=== PATIENT | male | born 1940 | race Caucasian/White ===

== ENCOUNTER 2016-11-04 16:26 | Emergency (ER) | payer BC, MEDICARE ==
[2016-11-04 16:41] VITALS: BP 155/71; PULSE 71; RESP 18; TEMP 97.5
--- NOTE | 2016-11-04 17:02 | ED ---
Male Urogenital HPI - General Chief complaint: Urogenital Stated complaint: Urogenital Source: patient Mode of arrival: wheelchair Limitations: no limitations - History of Present Illness Initial comments: Patient is a 76-year-old male who presents for evaluation for inability to void after having a surgical procedure this morning with Dr. Garay (urology). Past medical history as below. Patient unable to tell me exactly what the procedure he had or the condition he had warranting the procedure. Stated the procedure was at 7 AM this morning involved draining some fluid around the right testicle. Sounds like a hydrocele. Did well during the procedure. Stated that there was no complication was was discharged home. He is coming in this evening as he has not had a normal urination since the procedure. He stated that he was having "tingling". Is now having some lower pelvic pain. States he never had a history of urinary obstruction before in the past. He stated that his prostate was checked and was normal. He called his the office and spoke with Dr. Garay and recommended that he come in for evaluation. He currently denies fever, chills, headache, changes in vision, URI symptoms, shortness of breath, cough, chest pain, nausea, vomiting, diarrhea. - Related Data Home Medications Medication Instructions Recorded Confirmed Aspirin 81 mg PO DAILY 12/13/14 11/04/16 Hydrochlorothiazide 50 mg PO DAILY 12/13/14 11/04/16 [Hydrochlorothiazide] Simvastatin [Simvastatin] 20 mg PO DAILY 12/13/14 11/04/16 amLODIPine [Norvasc] 5 mg PO BID 12/13/14 11/04/16 Allergies Allergy/AdvReac Type Severity Reaction Status Date / Time No Known Allergies Allergy Verified 11/04/16 16:57 Review of Systems ROS Statement: Those systems with pertinent positive or pertinent negative responses have been documented in the HPI. ROS Other: All systems not noted in ROS Statement are negative. Past Medical History Past Medical History: Coronary Artery Disease (CAD), Chest Pain / Angina, GERD/ Reflux, Hyperlipidemia, Hypertension History of Any Multi-Drug Resistant Organisms: None Reported Past Surgical History: Coronary Bypass/CABG Additional Past Surgical History / Comment(s): Open heart Past Psychological History: No Psychological Hx Reported Smoking Status: Never smoker Past Alcohol Use History: None Reported Past Drug Use History: None Reported General Exam Limitations: no limitations General appearance: alert, in no apparent distress, other (No acute distress) Head exam: Present: atraumatic, normocephalic, normal inspection Eye exam: Present: normal appearance, PERRL, EOMI. Absent: scleral icterus, conjunctival injection, periorbital swelling ENT exam: Present: normal exam, mucous membranes moist Neck exam: Present: normal inspection. Absent: tenderness, meningismus, lymphadenopathy Respiratory exam: Present: normal lung sounds bilaterally. Absent: respiratory distress, wheezes, rales, rhonchi, stridor Cardiovascular Exam: Present: regular rate, normal rhythm, normal heart sounds. Absent: systolic murmur, diastolic murmur, rubs, gallop, clicks GI/Abdominal exam: Present: soft, tenderness, normal bowel sounds, other (Pain with palpation of the superpubic area. Soft abdomen. No peritoneal signs.). Absent: distended, guarding, rebound, rigid exam: Present: other (Surgical changes to the right scrotum. Palpated bilateral testes. No other acute abnormality identified.) Extremities exam: Present: normal inspection, full ROM, normal capillary refill. Absent: tenderness, pedal edema, joint swelling, calf tenderness Back exam: Present: normal inspection Neurological exam: Present: alert, oriented X3, CN II-XII intact Psychiatric exam: Present: normal affect, normal mood Skin exam: Present: warm, dry, intact, normal color. Absent: rash Course Vital Signs 11/04/16 16:38 Temperature 97.5 F L Pulse Rate 71 Respiratory 18 Rate Blood Pressure 155/71 O2 Sat by Pulse 98 Oximetry Medical Decision Making - Medical Decision Making 1700: Patient presents for evaluation for inability to urinate since urological procedure this morning. I spoke with Dr. Whipple. No further recommendations outside of a bladder scan and possible Vences if having urinary retention. 1720: 800 cc in the bladder. Vences placed. UA ordered. 1755: UA WNL. Discussed with the patient. We'll keep the Vences in until reevaluated by urology. Will discharge home with a leg bag. Will call Dr. Garay's office on Monday to set up follow up. Discussed signs and symptoms on when to return to the emergency department for further evaluation. Comfortable discharge home and will follow-up. - Lab Data Lab Results 11/04/16 Range/Units 17:20 Urine Color Yellow Urine Appearance Clear (Clear) Urine pH 7.0 (5.0-8.0) Ur Specific [place] 1.010 (1.001-1.035) Urine Protein Negative (Negative) Urine Glucose (UA) Negative (Negative) Urine Ketones Negative (Negative) Urine Blood Small H (Negative) Urine Nitrite Negative (Negative) Urine Bilirubin Negative (Negative) Urine Urobilinogen <2.0 (<2.0) mg/dL Ur Leukocyte Esterase Negative (Negative) Urine RBC 7 H (0-5) /hpf Urine WBC 1 (0-5) /hpf Urine Bacteria Rare H (None) /hpf Urine Mucus Rare H (None) /hpf Disposition Clinical Impression: Urinary retention Disposition: HOME SELF-CARE Condition: Good Instructions: Urinary Retention in Men (ED) Referrals: Curry Nair MD [Primary Care Provider] - 1-2 days Bryan Aguayo MD [STAFF PHYSICIAN] - 1-2 days
[2016-11-04 17:36] LABS: Appearance,Urine Clear (Clear); Bacteria,Urine Rare /hpf; Bilirubin,Urine Negative (Negative); Glucose,Urine (UA) Negative (Negative); Ketones,Urine Negative (Negative); Leukocyte Esterase,Urine Negative (Negative); Mucus,Urine Rare /hpf; Nitrite,Urine Negative (Negative); Particle Count 2945; Protein,Urine Negative (Negative); RBC,Urine 7 /hpf (0-5); UA Billing (MACRO vs. MICRO) MICRO; Urobilinogen,Urine <2.0 mg/dL (<2.0); WBC,Urine 1 /hpf (0-5)
== END 2016-11-04 18:18 | disposition home or self-care (01) ==
LOC: EC 16:26
DX: R33.9 Retention of urine, unspecified (principal); R10.30 Lower abdominal pain, unspecified; R20.2 Paresthesia of skin; I25.10 Atherosclerotic heart disease of native coronary artery without angina pectoris; E78.5 Hyperlipidemia, unspecified; I10 Essential (primary) hypertension; Z79.82 Long term (current) use of aspirin; Z79.899 Other long term (current) drug therapy; Z86.79 Personal history of other diseases of the circulatory system; Z98.61 Coronary angioplasty status
CPT/HCPCS: 51702; 51798; 81001; 99284

== ENCOUNTER 2017-09-06 05:57 | Emergency (ER) | payer MEDICARE ==
[2017-09-06 06:05] VITALS: RESP 16
[2017-09-06] MEDS ORDERED: SODIUM CHLORIDE 0.9% 500 ML IV STA (06:25)
--- NOTE | 2017-09-06 06:28 | ED ---
General Adult HPI - General Source: patient, RN notes reviewed, old records reviewed Mode of arrival: wheelchair Limitations: no limitations <Tho Aguirre - Last Filed: 09/06/17 06:28> <Alan Lanier - Last Filed: 09/06/17 08:06> - General Chief complaint: Abdominal Pain Stated complaint: ABD PAIN Time Seen by Provider: 09/06/17 06:07 - History of Present Illness Initial comments: 76-year-old male presents for evaluation of left flank pain. Patient's pain began yesterday around 11 PM. He came on suddenly. Patient states the pain has come and gone since that time. Denies any dysuria currently, however patient has complained of dysuria and urinary frequency in the past. No known history of kidney stones. Patient denies fever or chills. Denies nausea vomiting or diarrhea. States he has had some left lower abdominal pain as well. No testicular pain. No chest pain or shortness of breath. Pain is minimal at the time my evaluation. (Tho Aguirre) - Related Data Home Medications Medication Instructions Recorded Confirmed Aspirin 81 mg PO DAILY 12/13/14 11/04/16 Hydrochlorothiazide 50 mg PO DAILY 12/13/14 11/04/16 [Hydrochlorothiazide] Simvastatin [Simvastatin] 20 mg PO DAILY 12/13/14 11/04/16 amLODIPine [Norvasc] 5 mg PO BID 12/13/14 11/04/16 Allergies Allergy/AdvReac Type Severity Reaction Status Date / Time No Known Allergies Allergy Verified 03/22/17 03:44 Review of Systems ROS Other: All systems not noted in ROS Statement are negative. <Tho Aguirre - Last Filed: 09/06/17 06:28> ROS Other: All systems not noted in ROS Statement are negative. <Alan Lanier - Last Filed: 09/06/17 08:06> ROS Statement: Those systems with pertinent positive or pertinent negative responses have been documented in the HPI. Past Medical History Past Medical History: Coronary Artery Disease (CAD), Chest Pain / Angina, GERD/ Reflux, Hyperlipidemia, Hypertension History of Any Multi-Drug Resistant Organisms: None Reported Past Surgical History: Coronary Bypass/CABG Additional Past Surgical History / Comment(s): Open heart Past Psychological History: No Psychological Hx Reported Smoking Status: Never smoker Past Alcohol Use History: None Reported Past Drug Use History: None Reported <Tho Aguirre - Last Filed: 09/06/17 06:28> General Exam Limitations: no limitations General appearance: alert, in no apparent distress Head exam: Present: atraumatic, normocephalic Eye exam: Present: normal appearance, PERRL, EOMI ENT exam: Present: normal exam Neck exam: Present: normal inspection. Absent: tenderness, meningismus Respiratory exam: Present: normal lung sounds bilaterally. Absent: respiratory distress, wheezes Cardiovascular Exam: Present: regular rate, normal rhythm GI/Abdominal exam: Present: soft, tenderness (Mild left lower quadrant abdominal pain). Absent: distended, guarding, rebound Extremities exam: Present: normal inspection, full ROM, normal capillary refill. Absent: pedal edema Back exam: Present: CVA tenderness (L) Neurological exam: Present: alert, oriented X3, CN II-XII intact. Absent: motor sensory deficit Psychiatric exam: Present: normal affect, normal mood Skin exam: Present: warm, dry, intact. Absent: cyanosis, diaphoretic <Tho Aguirre - Last Filed: 09/06/17 06:28> Course <Tho Aguirre - Last Filed: 09/06/17 06:28> <Alan Lanier - Last Filed: 09/06/17 08:06> Vital Signs 09/06/17 09/06/17 06:01 07:41 Temperature 96.9 F L Pulse Rate 64 62 Respiratory 16 16 Rate Blood Pressure 148/67 151/71 O2 Sat by Pulse 96 97 Oximetry - Reevaluation(s) Reevaluation #1: 09/06/17 0700 Patient's care is signed out to Dr. Lanier awaiting laboratory studies and CT abdomen pelvis. (Tho Aguirre) Medical Decision Making <Tho Aguirre - Last Filed: 09/06/17 06:28> - Lab Data Result diagrams: 09/06/17 06:46 09/06/17 06:46 <Alan Lanier - Last Filed: 09/06/17 08:06> - Medical Decision Making Patient presented with left flank pain. The CAT scan reveals no evidence of any acute emergency condition. It shows a pulmonary nodule, which the patient has been apprised of and will follow-up as an outpatient. However that does not correlate with the patient's symptoms. He has a renal cyst which is also unremarkable for any type of emergency or causative pain. His laboratory studies are all normal. On reevaluation he has no abdominal tenderness. He is tolerating oral intake. He has normal vital signs. He has no evidence of any infectious processes. There is no evidence of any acute emergency condition at this time. He is stable for discharge. He'll follow-up with his physician does not outpatient. I instructed him to return to the emerge department immediately if he develops worsening of her symptoms, or any new proms or complaints. (Alan Lanier) - Lab Data Lab Results 09/06/17 09/06/17 09/06/17 Range/Units 06:46 06:46 06:46 WBC 4.7 (3.8-10.6) k/uL RBC 4.86 (4.30-5.90) m/uL Hgb 15.3 (13.0-17.5) gm/dL Hct 44.7 (39.0-53.0) % MCV 92.0 (80.0-100.0) fL MCH 31.4 (25.0-35.0) pg MCHC 34.2 (31.0-37.0) g/dL RDW 13.0 (11.5-15.5) % Plt Count 204 (150-450) k/uL Neutrophils % 58 % Lymphocytes % 30 % Monocytes % 7 % Eosinophils % 2 % Basophils % 1 % Neutrophils # 2.7 (1.3-7.7) k/uL Lymphocytes # 1.4 (1.0-4.8) k/uL Monocytes # 0.3 (0-1.0) k/uL Eosinophils # 0.1 (0-0.7) k/uL Basophils # 0.0 (0-0.2) k/uL Sodium 142 (137-145) mmol/L Potassium 3.8 (3.5-5.1) mmol/L Chloride 99 (98-107) mmol/L Carbon Dioxide 31 H (22-30) mmol/L Anion Gap 12 mmol/L BUN 15 (9-20) mg/dL Creatinine 0.62 L (0.66-1.25) mg/dL Est GFR (CKD-EPI)AfAm >90 (>60 ml/min/1.73 sqM) Est GFR (CKD-EPI)NonAf >90 (>60 ml/min/1.73 sqM) Glucose 88 (74-99) mg/dL Plasma Lactic Acid [place] 1.3 (0.7-2.0) mmol/L Calcium 9.3 (8.4-10.2) mg/dL Total Bilirubin 0.8 (0.2-1.3) mg/dL AST 18 (17-59) U/L ALT 19 L (21-72) U/L Alkaline Phosphatase 85 (38-126) U/L Total Protein 6.8 (6.3-8.2) g/dL Albumin 4.1 (3.5-5.0) g/dL Urine Color Urine Appearance (Clear) Urine pH (5.0-8.0) Ur Specific [place] (1.001-1.035) Urine Protein (Negative) Urine Glucose (UA) (Negative) Urine Ketones (Negative) Urine Blood (Negative) Urine Nitrite (Negative) Urine Bilirubin (Negative) Urine Urobilinogen (<2.0) mg/dL Ur Leukocyte Esterase (Negative) Urine WBC (0-5) /hpf Amorphous Sediment (None) /hpf Urine Mucus (None) /hpf 09/06/17 Range/Units 07:32 WBC (3.8-10.6) k/uL RBC (4.30-5.90) m/uL Hgb (13.0-17.5) gm/dL Hct (39.0-53.0) % MCV (80.0-100.0) fL MCH (25.0-35.0) pg MCHC (31.0-37.0) g/dL RDW (11.5-15.5) % Plt Count (150-450) k/uL Neutrophils % % Lymphocytes % % Monocytes % % Eosinophils % % Basophils % % Neutrophils # (1.3-7.7) k/uL Lymphocytes # (1.0-4.8) k/uL Monocytes # (0-1.0) k/uL Eosinophils # (0-0.7) k/uL Basophils # (0-0.2) k/uL Sodium (137-145) mmol/L Potassium (3.5-5.1) mmol/L Chloride (98-107) mmol/L Carbon Dioxide (22-30) mmol/L Anion Gap mmol/L BUN (9-20) mg/dL Creatinine (0.66-1.25) mg/dL Est GFR (CKD-EPI)AfAm (>60 ml/min/1.73 sqM) Est GFR (CKD-EPI)NonAf (>60 ml/min/1.73 sqM) Glucose (74-99) mg/dL Plasma Lactic Acid [place] (0.7-2.0) mmol/L Calcium (8.4-10.2) mg/dL Total Bilirubin (0.2-1.3) mg/dL AST (17-59) U/L ALT (21-72) U/L Alkaline Phosphatase (38-126) U/L Total Protein (6.3-8.2) g/dL Albumin (3.5-5.0) g/dL Urine Color Yellow Urine Appearance Cloudy (Clear) Urine pH 7.5 (5.0-8.0) Ur Specific [place] 1.014 (1.001-1.035) Urine Protein Negative (Negative) Urine Glucose (UA) Negative (Negative) Urine Ketones Negative (Negative) Urine Blood Negative (Negative) Urine Nitrite Negative (Negative) Urine Bilirubin Negative (Negative) Urine Urobilinogen <2.0 (<2.0) mg/dL Ur Leukocyte Esterase Negative (Negative) Urine WBC 1 (0-5) /hpf Amorphous Sediment Occasional H (None) /hpf Urine Mucus Rare H (None) /hpf Disposition <Tho Aguirre - Last Filed: 09/06/17 06:28> Is patient prescribed a controlled substance at d/c from ED?: No <Alan Lanier - Last Filed: 09/06/17 08:06> Clinical Impression: Abdominal pain Disposition: HOME SELF-CARE Condition: Good Instructions: Abdominal Pain (ED) Referrals: Curry Nair MD [Primary Care Provider] - 1-2 days
[2017-09-06 06:57] LABS: Basophils % (A) 1 %; Eosinophils # (A) 0.1 k/uL (0-0.7); Eosinophils % (A) 2 %; HCT 44.7 % (39.0-53.0); HGB 15.3 gm/dL (13.0-17.5); Lymphocytes # (A) 1.4 k/uL (1.0-4.8); Lymphocytes % (A) 30 %; MCH 31.4 pg (25.0-35.0); MCHC 34.2 g/dL (31.0-37.0); Monocytes # (A) 0.3 k/uL (0-1.0); Monocytes % (A) 7 %; Neutrophils # (A) 2.7 k/uL (1.3-7.7); Neutrophils % (A) 58 %; Platelet Count 204 k/uL (150-450); RBC 4.86 m/uL (4.30-5.90); WBC 4.7 k/uL (3.8-10.6)
[2017-09-06 07:11] LABS: ALT 19 U/L (21-72); AST 18 U/L (17-59); Albumin 4.1 g/dL (3.5-5.0); Alkaline Phosphatase 85 U/L (38-126); Anion Gap 12 mmol/L; Blood Urea Nitrogen 15 mg/dL (9-20); Calcium 9.3 mg/dL (8.4-10.2); Carbon Dioxide 31 mmol/L (22-30); Chloride 99 mmol/L (98-107); Glucose 88 mg/dL (74-99); Potassium 3.8 mmol/L (3.5-5.1); Sodium 142 mmol/L (137-145); Total Bilirubin 0.8 mg/dL (0.2-1.3); Total Protein 6.8 g/dL (6.3-8.2)
--- NOTE | 2017-09-06 07:27 | XR ---
EXAMINATION TYPE: XR KUB DATE OF EXAM: 09/06/2017 COMPARISON: NONE HISTORY: Left flank pain TECHNIQUE: One view abdominal series FINDINGS: The osseous structures are intact. The bowel gas pattern is nonspecific. Lung bases are clear. Post surgical change involving the mediastinum. Hypertrophic and degenerative changes spine. Arthropathy o f the hips. Hiatal hernia suspected. IMPRESSION: 1. Nonspecific abdomen.
--- NOTE | 2017-09-06 07:40 | CT ---
EXAMINATION TYPE: CT abdomen pelvis wo con DATE OF EXAM: 09/06/2017 COMPARISON: NONE HISTORY: Lt flank pain CT DLP: 482.8 mGycm Automated exposure control for dose reduction was used. TECHNIQUE: Helical acquisition of images was performed from the lung bases through the pelvis. FINDINGS: LUNG BASES: Subsegmental changes at the right lung base noted. Similar linear changes at the left kalyn g base 3 mm nodular density along the medial aspect left lower lobe coronary artery calcification not ed. Sternotomy wires seen. Atherosclerotic change aorta LIVER/GB: There is cholelithiasis. PANCREAS: No significant abnormality is seen. SPLEEN: No significant abnormality is seen. ADRENALS: Indeterminant 1 cm left adrenal nodule.. KIDNEYS: No hydronephrosis or renal calculi. Indeterminate lower pole left renal lesion measuring les s than a centimeter. Hyperdense 4 mm lesion lower pole right kidney likely related to hemorrhagic cys t.. There is also fullness to the mid pole medial margin of the left kidney which should be evaluated with follow-up ultrasound or postcontrast CT. ADENOPATHY: None visualized URINARY BLADDER: No significant abnormality is seen. PELVIC ADENOPATHY: None visualized. OSSEOUS STRUCTURES: Hypertrophic and degenerative disc disease noted.. BOWEL: Bowel gas pattern nonspecific with retained fecal debris. OTHER: Prostate gland is enlarged. There is wall thickening the bladder which correlate clinically fo r cystitis can't exclude mucosal distal left ureter appears dilated measuring 1 cm. Moderate-sized hi atal hernia noted. IMPRESSION: 1. No renal calculus or hydronephrosis. There is localized dilation of the distal left ureter near th e level of the UVJ with marked prostate hypertrophy. Distal mucosal lesion not excluded. 2. Bladder wall thickening correlate for cystitis. 3. Indeterminate left renal lesion and fullness of the medial midpole indeterminate by noncontrast CT . Recommend follow-up ultrasound or postcontrast CT. 4. Hyperdense 3 mm right renal lesion may be related to hemorrhagic cyst. 5. Indeterminate 1 cm left adrenal nodule. 6. Cholelithiasis. 7. 3 mm left lower lobe pulmonary nodule recommend 6 month follow-up CT scan to assess for stability.
[2017-09-06 07:42] VITALS: BP 151/71; PULSE 62
[2017-09-06 07:48] LABS: Amorphous Sediment,Urine Occasional /hpf; Appearance,Urine Cloudy (Clear); Bilirubin,Urine Negative (Negative); Blood,Urine Negative (Negative); Color,Urine Yellow; Glucose,Urine (UA) Negative (Negative); Ketones,Urine Negative (Negative); Leukocyte Esterase,Urine Negative (Negative); Mucus,Urine Rare /hpf; Nitrite,Urine Negative (Negative); PH, Urine 7.5 (5.0-8.0); Protein,Urine Negative (Negative); Specific Gravity,Urine 1.014 (1.001-1.035); Urobilinogen,Urine <2.0 mg/dL (<2.0); WBC,Urine 1 /hpf (0-5)
[2017-09-06] MEDS ORDERED: HYDROcodone/APAP 10-325MG 1 EACH TAB PO ONE (08:15)
[2017-09-06 08:24] VITALS: TEMP 98.4
== END 2017-09-06 08:23 | disposition home or self-care (01) ==
LOC: EC 05:57
DX: R10.32 Left lower quadrant pain (principal); R91.1 Solitary pulmonary nodule; R30.0 Dysuria; E78.5 Hyperlipidemia, unspecified; I10 Essential (primary) hypertension; Z79.82 Long term (current) use of aspirin; Z79.899 Other long term (current) drug therapy
CPT/HCPCS: 36415; 74018; 74176; 80053; 81001; 83605; 85025; 87086; 96360; 99284

== ENCOUNTER 2018-12-05 16:01 | Emergency (ER) | payer MEDICARE ==
[2018-12-05 16:27] VITALS: RESP 18
--- NOTE | 2018-12-05 16:42 | ED ---
General Adult HPI - General Chief complaint: Urogenital Stated complaint: trouble urinating Time Seen by Provider: 12/05/18 16:31 Source: patient Mode of arrival: wheelchair Limitations: no limitations - History of Present Illness Initial comments: 78-year-old male presenting with suprapubic bladder pain and urinary retention that began last night. Patient states he has not been able to void normally since this began. He admits to one prior episode of urinary retention which required Vences, but denies any history of BPH, prostate cancer, infections. He denies any fevers chills or constitutional symptoms. Denies any GI symptoms. - Related Data Home Medications Medication Instructions Recorded Confirmed Aspirin 81 mg PO DAILY 12/13/14 12/05/18 Simvastatin 20 mg PO HS 12/13/14 12/05/18 amLODIPine [Norvasc] 5 mg PO BID 12/13/14 12/05/18 Hydrochlorothiazide [Hydrodiuril] 25 mg PO DAILY 12/05/18 12/05/18 Tamsulosin [Flomax] 0.4 mg PO HS 12/05/18 12/05/18 Allergies Allergy/AdvReac Type Severity Reaction Status Date / Time No Known Allergies Allergy Verified 12/05/18 17:17 Review of Systems ROS Statement: Those systems with pertinent positive or pertinent negative responses have been documented in the HPI. Review of Systems Constitutional: Denies fever, chills Eyes: Denies change in vision, Denies pain Ears, nose, mouth, throat: Denies headaches, Denies sore throat Cardiovascular: Denies chest pain. Denies palpitations Respiratory: Denies shortness of breath, Denies cough Gastrointestinal: Positive abdominal pain. Denies nausea, vomiting, diarrhea. Genitourinary: Denies hematuria, Denies infections. Positive urinary retention Musculoskeletal: Denies pain, Denies swelling Integumentary: Denies rash Neurological: Denies headache, focal weakness, focal numbness Psychiatric: Denies anxiety, Denies depression Hematologic/Lymphatic: Denies easy bleeding or bruising ROS Other: All systems not noted in ROS Statement are negative. Past Medical History Past Medical History: Coronary Artery Disease (CAD), Chest Pain / Angina, GERD/Reflux, Hyperlipidemia, Hypertension History of Any Multi-Drug Resistant Organisms: None Reported Past Surgical History: Coronary Bypass/CABG Additional Past Surgical History / Comment(s): Open heart Past Psychological History: No Psychological Hx Reported Smoking Status: Never smoker Past Alcohol Use History: None Reported Past Drug Use History: None Reported General Exam - General Exam Comments Initial Comments: General: Awake, alert, No acute Distress HENT: Normocephalic. Atraumatic Eyes: PERRL. EOMI. No scleral icterus. No injected conjunctiva Neck: Full ROM Chest/Lungs: Clear to auscultation bilaterally. No wheezing, rhonchi, or rales Cardiac: Regular rate, rhythm. No murmurs or rubs Abdomen/GI: Soft, nondistended. Suprapubic tenderness. No rebound, guarding, or rigidity. Musculoskeletal: Full ROM Skin: Warm, dry, intact Neurologic: A/Ox3, no weakness, no sensory deficit, no abnormal gait, no coordination deficit Limitations: no limitations Course Vital Signs 12/05/18 16:21 Temperature 97.4 F L Pulse Rate 82 Respiratory 18 Rate Blood Pressure 158/80 O2 Sat by Pulse 97 Oximetry Medical Decision Making - Medical Decision Making 78-year-old male presenting with urinary retention. Initial exam the patient is awake, alert, no acute distress. VSS. Patient's bladder scan found to be over 700 and he was unable to void. Will he was placed without difficulty with good return of clear yellow urine. His laboratory workup is unremarkable, and there is no evidence of DIOMEDES or urinary tract infection. Patient's abdominal pain resolved. Patient states his urologist is across the street in his home and he can make an appointment with them for follow-up. No further emergent workup indicated. The patient was given return to ED instructions. They were instructed to follow up with their primary care provider. Stable for discharge at this [facility]. - Lab Data Result diagrams: 12/05/18 16:54 12/05/18 16:54 Lab Results 12/05/18 12/05/18 12/05/18 Range/Units 16:54 16:54 17:00 WBC 8.1 (3.8-10.6) k/uL RBC 4.76 (4.30-5.90) m/uL Hgb 15.2 (13.0-17.5) gm/dL Hct 45.1 (39.0-53.0) % MCV 94.8 (80.0-100.0) fL MCH 32.0 (25.0-35.0) pg MCHC 33.7 (31.0-37.0) g/dL RDW 14.6 (11.5-15.5) % Plt Count 194 (150-450) k/uL Neutrophils % 79 % Lymphocytes % 13 % Monocytes % 6 % Eosinophils % 1 % Basophils % 0 % Neutrophils # 6.4 (1.3-7.7) k/uL Lymphocytes # 1.0 (1.0-4.8) k/uL Monocytes # 0.5 (0-1.0) k/uL Eosinophils # 0.1 (0-0.7) k/uL Basophils # 0.0 (0-0.2) k/uL Sodium 135 L (137-145) mmol/L Potassium 4.1 (3.5-5.1) mmol/L Chloride 98 (98-107) mmol/L Carbon Dioxide 29 (22-30) mmol/L Anion Gap 8 mmol/L BUN 20 (9-20) mg/dL Creatinine 0.93 (0.66-1.25) mg/dL Est GFR (CKD-EPI)AfAm >90 (>60 ml/min/1.73 sqM) Est GFR (CKD-EPI)NonAf 78 (>60 ml/min/1.73 sqM) Glucose 100 H (74-99) mg/dL Calcium 9.3 (8.4-10.2) mg/dL Urine Color Yellow Urine Appearance Clear (Clear) Urine pH 7.0 (5.0-8.0) Ur Specific [place] 1.011 (1.001-1.035) Urine Protein Negative (Negative) Urine Glucose (UA) Negative (Negative) Urine Ketones Negative (Negative) Urine Blood Small H (Negative) Urine Nitrite Negative (Negative) Urine Bilirubin Negative (Negative) Urine Urobilinogen <2.0 (<2.0) mg/dL Ur Leukocyte Esterase Negative (Negative) Urine RBC 22 H (0-5) /hpf Urine WBC 1 (0-5) /hpf Amorphous Sediment Rare H (None) /hpf Urine Mucus Rare H (None) /hpf Disposition Clinical Impression: Urinary retention Disposition: HOME SELF-CARE Condition: Good Instructions (If sedation given, give patient instructions): Urinary Retention in Men (ED), Vences Catheter Placement and Care (ED) Is patient prescribed a controlled substance at d/c from ED?: No Referrals: Bryan Aguayo MD [STAFF PHYSICIAN] - 1-2 days Curry Nair MD [Primary Care Provider] - 1-2 days
[2018-12-05 17:10] LABS: Basophils % (A) 0 %; Eosinophils # (A) 0.1 k/uL (0-0.7); Eosinophils % (A) 1 %; HCT 45.1 % (39.0-53.0); HGB 15.2 gm/dL (13.0-17.5); Lymphocytes % (A) 13 %; MCHC 33.7 g/dL (31.0-37.0); MCV 94.8 fL (80.0-100.0); Mean Platelet Volume 7.8; Monocytes # (A) 0.5 k/uL (0-1.0); Monocytes % (A) 6 %; Neutrophils # (A) 6.4 k/uL (1.3-7.7); Neutrophils % (A) 79 %; Platelet Count 194 k/uL (150-450); RBC 4.76 m/uL (4.30-5.90); RDW 14.6 % (11.5-15.5); WBC 8.1 k/uL (3.8-10.6)
[2018-12-05 17:19] LABS: African American GFR (CKD) >90 (>60 ml/min/1.73 sqM); Anion Gap 8 mmol/L; Blood Urea Nitrogen 20 mg/dL (9-20); Calcium 9.3 mg/dL (8.4-10.2); Carbon Dioxide 29 mmol/L (22-30); Chloride 98 mmol/L (98-107); Glucose 100 mg/dL (74-99); Potassium 4.1 mmol/L (3.5-5.1); Sodium 135 mmol/L (137-145)
[2018-12-05 17:21] LABS: Amorphous Sediment,Urine Rare /hpf; Appearance,Urine Clear (Clear); Bilirubin,Urine Negative (Negative); Blood,Urine Small (Negative); Color,Urine Yellow; Glucose,Urine (UA) Negative (Negative); Ketones,Urine Negative (Negative); Leukocyte Esterase,Urine Negative (Negative); Mucus,Urine Rare /hpf; Nitrite,Urine Negative (Negative); Protein,Urine Negative (Negative); RBC,Urine 22 /hpf (0-5); Specific Gravity,Urine 1.011 (1.001-1.035); Urobilinogen,Urine <2.0 mg/dL (<2.0)
[2018-12-05 17:45] VITALS: BP 151/78; PULSE 72; TEMP 97.2
== END 2018-12-05 17:30 | disposition home or self-care (01) ==
LOC: EC 16:01
DX: R33.9 Retention of urine, unspecified (principal); I25.119 Atherosclerotic heart disease of native coronary artery with unspecified angina pectoris; K21.9 Gastro-esophageal reflux disease without esophagitis; E78.5 Hyperlipidemia, unspecified; I10 Essential (primary) hypertension; Z79.82 Long term (current) use of aspirin; Z79.899 Other long term (current) drug therapy; Z95.1 Presence of aortocoronary bypass graft
CPT/HCPCS: 36415; 51702; 51798; 80048; 81001; 85025; 99284

== ENCOUNTER 2021-09-23 16:53 | Observation (INO) | payer MEDICARE ==
[2021-09-23] MEDS ORDERED: SODIUM CHLORIDE 0.9% 500 ML 500 ML IV STA (16:56)
--- NOTE | 2021-09-23 16:59 | ED ---
General Adult HPI - General Stated complaint: Neuro Symptoms Time Seen by Provider: 09/23/21 16:56 - History of Present Illness Initial comments: Dictation was produced using [employer] dictation software. please excuse any grammatical, word or spelling errors. Chief Complaint: 80-year-old male presents to the emergency department for str okelike symptoms History of Present Illness: 80-year-old male presents emergency department for strokelike symptoms. History is obtained from EMS. EMS was called by patient's neighbor. Patient allegedly had a fall. Is unclear how long patient was on the ground. According to EMS to unclear when last known normal was. Patient is a poor historian. EMS reports that patient had a left facial droop and left arm drift. Denies any numbness and paresthesias. The ROS documented in this emergency department record has been reviewed and confirmed by me. Those systems with pertinent positive or negative responses have been documented in the HPI. All other systems are other negative and/or noncontributory. PHYSICAL EXAM: General Impression: Alert and oriented x3, not in acute distress HEENT: Normocephalic atraumatic, extra-ocular movements intact, pupils equal and reactive to light bilaterally, mucous membranes moist. Cardiovascular: Heart regular rate and rhythm Chest: Able to complete full sentences, no retractions, no tachypnea Abdomen: abdomen soft, non-tender, non-distended, no organomegaly Musculoskeletal: Pulses present and equal in all extremities, no peripheral edema Motor: no focal deficits noted Neurological: CN II-XII grossly intact, positive left arm drift, mildly d ysarthric and aphasic, NIH score of 3 Skin: Intact with no visualized rashes Psych: Normal affect and mood ED course: 80-year-old male presents emergency department for strokelike symptoms. Patient is a candidate for alteplase at this time given that there is no clear time of onset or last known normal. Patient's NIH score is 3. EMS reports that he had left facial droop and left arm drift. At the time that he was evaluated in trauma bay patient did not have any noticeable left facial droop he did however have left arm drift. Patient did seem to be slightly dysarthric and slightly aphasic. Case discussed with stroke neurologist, Dr. Carrillo who agrees the patient is not a TPA candidate. Patient reevaluated at bedside at 6:20 PM. He does not have any drift to his left upper extremity. He does not have any dysarthria or aphasia. NIH at 6:20 PM was 0. Daughter at the bedside reports that he is baseline. Patient will be admitted to Dr. Nair appears given aspirin. Patient is agreeable to disposition plan. EKG interpretation: Ventricular rate 83, sinus rhythm,. Interval 166, QS 113, QTC 418. No FL prolongation, no QTC prolongation, no ST or T-wave changes noted. EKG compared to 03/22/2017 showing no changes. Overall, this EKG is unremarkable - Related Data Home Medications Medication Instructions Recorded Confirmed Aspirin 81 mg PO DAILY 12/13/14 09/23/21 Simvastatin 20 mg PO HS 12/13/14 09/23/21 amLODIPine [Norvasc] 5 mg PO BID 12/13/14 09/23/21 Tamsulosin [Flomax] 0.4 mg PO DAILY 12/05/18 09/23/21 hydroCHLOROthiazide [Hydrodiuril] 25 mg PO DAILY 12/05/18 09/23/21 Finasteride [Proscar] 5 mg PO DAILY 09/23/21 09/23/21 Allergies Allergy/AdvReac Type Severity Reaction Status Date / Time No Known Allergies Allergy Verified 09/23/21 17:38 Review of Systems ROS Statement: Those systems with pertinent positive or pertinent negative responses have been documented in the HPI. ROS Other: All systems not noted in ROS Statement are negative. Past Medical History Past Medical History: Coronary Artery Disease (CAD), Chest Pain / Angina, GERD/Reflux, Hyperlipidemia, Hypertension History of Any Multi-Drug Resistant Organisms: None Reported Past Surgical History: Coronary Bypass/CABG Additional Past Surgical History / Comment(s): Open heart Past Psychological History: No Psychological Hx Reported Past Alcohol Use History: None Reported Past Drug Use History: None Reported Course Vital Signs 09/23/21 16:54 Temperature 98.5 F Pulse Rate 80 Respiratory 18 Rate Blood Pressure 116/71 O2 Sat by Pulse 97 Oximetry Medical Decision Making - Lab Data Result diagrams: 09/23/21 17:01 09/23/21 17:01 Lab Results 09/23/21 09/23/21 09/23/21 Range/Units 17:01 17:01 17:01 WBC 4.6 (3.8-10.6) k/uL RBC 4.32 (4.30-5.90) m/uL Hgb 13.6 (13.0-17.5) gm/dL Hct 42.2 (39.0-53.0) % MCV 97.6 (80.0-100.0) fL MCH 31.4 (25.0-35.0) pg MCHC 32.2 (31.0-37.0) g/dL RDW 12.6 (11.5-15.5) % Plt Count 195 (150-450) k/uL MPV 8.3 Neutrophils % 58 % Lymphocytes % 29 % Monocytes % 8 % Eosinophils % 1 % Basophils % 1 % Neutrophils # 2.7 (1.3-7.7) k/uL Lymphocytes # 1.3 (1.0-4.8) k/uL Monocytes # 0.4 (0-1.0) k/uL Eosinophils # 0.1 (0-0.7) k/uL Basophils # 0.1 (0-0.2) k/uL PT 11.1 (9.0-12.0) sec INR 1.0 (<1.2) APTT 20.9 L (22.0-30.0) sec Sodium 134 L (137-145) mmol/L Potassium 4.1 (3.5-5.1) mmol/L Chloride 99 (98-107) mmol/L Carbon Dioxide 23 (22-30) mmol/L Anion Gap 12 mmol/L BUN 18 (9-20) mg/dL Creatinine 0.78 (0.66-1.25) mg/dL Est GFR (CKD-EPI)AfAm >90 (>60 ml/min/1.73 sqM) Est GFR (CKD-EPI)NonAf 85 (>60 ml/min/1.73 sqM) Glucose 90 (74-99) mg/dL POC Glucose (mg/dL) (75-99) mg/dL POC Glu Investigations Director ID Calcium 8.9 (8.4-10.2) mg/dL Total Bilirubin 0.7 (0.2-1.3) mg/dL AST 25 (17-59) U/L ALT 14 (4-49) U/L Alkaline Phosphatase 72 (38-126) U/L Troponin I (0.000-0.034) ng/mL Total Protein 6.8 (6.3-8.2) g/dL Albumin 4.3 (3.5-5.0) g/dL 09/23/21 09/23/21 Range/Units 17:01 17:40 WBC (3.8-10.6) k/uL RBC (4.30-5.90) m/uL Hgb (13.0-17.5) gm/dL Hct (39.0-53.0) % MCV (80.0-100.0) fL MCH (25.0-35.0) pg MCHC (31.0-37.0) g/dL RDW (11.5-15.5) % Plt Count (150-450) k/uL MPV Neutrophils % % Lymphocytes % % Monocytes % % Eosinophils % % Basophils % % Neutrophils # (1.3-7.7) k/uL Lymphocytes # (1.0-4.8) k/uL Monocytes # (0-1.0) k/uL Eosinophils # (0-0.7) k/uL Basophils # (0-0.2) k/uL PT (9.0-12.0) sec INR (<1.2) APTT (22.0-30.0) sec Sodium (137-145) mmol/L Potassium (3.5-5.1) mmol/L Chloride (98-107) mmol/L Carbon Dioxide (22-30) mmol/L Anion Gap mmol/L BUN (9-20) mg/dL Creatinine (0.66-1.25) mg/dL Est GFR (CKD-EPI)AfAm (>60 ml/min/1.73 sqM) Est GFR (CKD-EPI)NonAf (>60 ml/min/1.73 sqM) Glucose (74-99) mg/dL POC Glucose (mg/dL) 90 (75-99) mg/dL POC Glu Investigations Director Curry Razo Calcium (8.4-10.2) mg/dL Total Bilirubin (0.2-1.3) mg/dL AST (17-59) U/L ALT (4-49) U/L Alkaline Phosphatase (38-126) U/L Troponin I <0.012 (0.000-0.034) ng/mL Total Protein (6.3-8.2) g/dL Albumin (3.5-5.0) g/dL Critical Care Time Critical Care Time: Yes Total Critical Care Time: 33 Disposition Clinical Impression: Transient cerebral ischemia Disposition: ADMITTED IP TO THIS HOSP Condition: Fair Referrals: Curry Nair MD [Primary Care Provider] - 1-2 days
[2021-09-23 17:07] LABS: Basophils # (A) 0.1 k/uL (0-0.2); Basophils % (A) 1 %; Eosinophils # (A) 0.1 k/uL (0-0.7); Eosinophils % (A) 1 %; HCT 42.2 % (39.0-53.0); HGB 13.6 gm/dL (13.0-17.5); Lymphocytes # (A) 1.3 k/uL (1.0-4.8); Lymphocytes % (A) 29 %; MCH 31.4 pg (25.0-35.0); MCHC 32.2 g/dL (31.0-37.0); MCV 97.6 fL (80.0-100.0); Mean Platelet Volume 8.3; Monocytes # (A) 0.4 k/uL (0-1.0); Monocytes % (A) 8 %; Neutrophils # (A) 2.7 k/uL (1.3-7.7); Neutrophils % (A) 58 %; Platelet Count 195 k/uL (150-450); RBC 4.32 m/uL (4.30-5.90); RDW 12.6 % (11.5-15.5); WBC 4.6 k/uL (3.8-10.6)
[2021-09-23 17:19] LABS: ALT 14 U/L (4-49); AST 25 U/L (17-59); African American GFR (CKD) >90 (>60 ml/min/1.73 sqM); Albumin 4.3 g/dL (3.5-5.0); Alkaline Phosphatase 72 U/L (38-126); Anion Gap 12 mmol/L; Blood Urea Nitrogen 18 mg/dL (9-20); Calcium 8.9 mg/dL (8.4-10.2); Carbon Dioxide 23 mmol/L (22-30); Chloride 99 mmol/L (98-107); Glucose 90 mg/dL (74-99); Non-African American GFR(CKD) 85 (>60 ml/min/1.73 sqM); Potassium 4.1 mmol/L (3.5-5.1); Sodium 134 mmol/L (137-145); Total Bilirubin 0.7 mg/dL (0.2-1.3); Total Protein 6.8 g/dL (6.3-8.2)
--- NOTE | 2021-09-23 17:28 | CT ---
EXAMINATION TYPE: CT brain wo con for TPA CT DLP: 1193.8 mGycm, Automated exposure control for dose reduction was used. DATE OF EXAM: 09/23/2021 5:19 PM COMPARISON: None. CLINICAL INDICATION:Male, 80 years old with history of Neuro deficit, acute, stroke suspected, TECHNIQUE: Brain: Multiple axial CT images of the brain were obtained without IV contrast. FINDINGS: Brain: Extra-axial spaces: No abnormal extra-axial fluid collections. Ventricular system: Within normal limits Cerebral parenchyma: No acute intraparenchymal hemorrhage or mass effect. The collins-white junction is well differentiated. Scattered hypoattenuating areas are seen within the white matter. Cerebellum: Unremarkable. Mass effect: No evidence of midline shift. Intracranial vasculature: Atherosclerotic calcifications of the intracranial vessels. Soft tissues: Normal. Calvarium/osseous structures: No depressed skull fracture. Paranasal sinuses and mastoid air cells: Mild scattered paranasal sinus disease. Visualized orbits: Bilateral aphakia IMPRESSION: 1. No acute intracranial process. 2. Nonspecific white matter changes, likely secondary to chronic small vessel ischemic disease.
[2021-09-23 17:29] LABS: Partial Thromboplastin Time 20.9 sec (22.0-30.0); Prothrombin Time 11.1 sec (9.0-12.0)
[2021-09-23 17:43] LABS: Glucose,Whole Blood 90 mg/dL (75-99)
--- NOTE | 2021-09-23 17:45 | XR ---
EXAMINATION TYPE: XR chest 2V DATE OF EXAM: 09/23/2021 5:22 PM COMPARISON: 10/01/2014 TECHNIQUE: XR chest 2V Frontal and lateral views of the chest. CLINICAL INDICATION:Male, 80 years old with history of altered mental status; FINDINGS: Lungs/Pleura: There is a spine sign with increased density over the spine on lateral view. There is n o evidence of pleural effusion or pneumothorax. Pulmonary vascularity: Unremarkable. Heart/mediastinum: Cardiomediastinal silhouette is unremarkable. Musculoskeletal: No acute osseous pathology. IMPRESSION: Suspected lower lobe airspace disease best appreciated on lateral view.
--- NOTE | 2021-09-23 17:56 | CT ---
EXAMINATION TYPE: CT angio head neck CT DLP: 592 mGycm, Automated exposure control for dose reduction was used. DATE OF EXAM: 09/23/2021 5:31 PM COMPARISON: CT brain 09/23/2021. CLINICAL INDICATION:Male, 80 years old with history of Neuro deficit, acute, stroke suspected; TECHNIQUE: Axially acquired helical CT angiogram of the head and neck was obtained with contrast util izing 75 cc of Isovue-370 administered intravenously. Axial images are supplemented with 3D reconstru ctions which were post-processed at an independent workstation. NASCET criteria used. FINDINGS: CTA HEAD: No evidence of acute intracranial hemorrhage, mass effect, or midline shift. The ventricles, sulci, a nd cisterns are unremarkable. The visualized portions of the internal carotid arteries, middle cerebral arteries, anterior cerebral arteries, and posterior cerebral arteries are patent. The basilar is patent. There is a left dominant vertebral artery system. The right vertebral artery i ntracranial portion is diminutive which limits its evaluation for patency. There is calcified plaquin g of the left vertebral artery in the intracranial portion near the basilar artery. CTA NECK: Right Carotid System: The common carotid artery and external carotid artery are patent. The carotid bifurcation demonstrate s mild mixed atherosclerotic disease without evidence of hemodynamically significant stenosis. The re maining portions of the internal carotid artery demonstrate normal size without significant narrowing . Left Carotid System: The common carotid artery and external carotid artery are patent. The carotid bifurcation demonstrate s mild mixed atherosclerotic disease without evidence of hemodynamically significant stenosis. The re maining portions of the internal carotid artery demonstrate normal size without significant narrowing . Vertebral arteries are patent without evidence hemodynamically significant stenosis. There is a three-vessel aortic arch. The origins of the great vessels are patent. No evidence of hemo dynamically significant stenosis. Other: There is a left 10 mm thyroid nodule. There are sternotomy wires present. Visualized portions of the lungs are grossly unremarkable. There is multilevel disc degeneration changes seen throughout the spine. Fixation hardware seen in the cervical spine. IMPRESSION: 1. No evidence of dissection of the cervical internal carotid arteries or vertebral arteries or any e vidence of significant stenosis at the carotid bifurcations. 2. No evidence of high-grade stenosis or intracranial aneurysm. 3. Diminutive right vertebral artery and its intracranial portion which limits evaluation for patency . There is dominant left vertebral artery system which is patent with mild atherosclerosis of the int racranial portion.
[2021-09-23] MEDS ORDERED: ASPIRIN 81 MG PO STA (18:02)
[2021-09-23] MEDS ORDERED: NALOXONE 0.4 MG/ML 1 ML VIAL IV PRN (18:19)
[2021-09-23] MEDS: SODIUM CHLORIDE 0.9% 1,000 ML IV SCH (18:29)
[2021-09-23] MEDS: amLODIPine 5 MG TAB PO SCH (22:30)
[2021-09-24 07:47] LABS: HGB 14.3 gm/dL (13.0-17.5); MCH 31.1 pg (25.0-35.0); MCHC 31.7 g/dL (31.0-37.0); MCV 98.1 fL (80.0-100.0); Mean Platelet Volume 8.3; Platelet Count 189 k/uL (150-450); RBC 4.59 m/uL (4.30-5.90); RDW 12.6 % (11.5-15.5); WBC 5.4 k/uL (3.8-10.6)
[2021-09-24 08:04] LABS: ALT 16 U/L (4-49); AST 46 U/L (17-59); African American GFR (CKD) >90 (>60 ml/min/1.73 sqM); Alkaline Phosphatase 82 U/L (38-126); Anion Gap 7 mmol/L; Blood Urea Nitrogen 13 mg/dL (9-20); Calcium 8.8 mg/dL (8.4-10.2); Carbon Dioxide 30 mmol/L (22-30); Chloride 100 mmol/L (98-107); Glucose 83 mg/dL (74-99); Non-African American GFR(CKD) >90 (>60 ml/min/1.73 sqM); Potassium 4.2 mmol/L (3.5-5.1); Sodium 137 mmol/L (137-145)
[2021-09-24] MEDS: FAMOTIDINE 20 MG TAB PO SCH (09:13)
[2021-09-24] MEDS: amLODIPine 5 MG TAB PO SCH ×2 (09:13→20:01)
[2021-09-24] MEDS: TAMSULOSIN 0.4 MG CAP.ER.24H PO SCH (09:13)
[2021-09-24] MEDS: ASPIRIN 81 MG PO SCH (09:13)
[2021-09-24] MEDS: FINASTERIDE 5 MG TAB PO SCH (09:14)
--- NOTE | 2021-09-24 09:46 | P.HPIM ---
History of Present Illness H&P Date: 09/23/21 Chief Complaint: TIA/CVA, atherosclerotic heart disease post CABG, hypertension, hyperlipide HISTORY OF PRESENT ILLNESS 50-year-old male one of my office patient who has not been seen in the last few years or since apparently started according to him feel he has been averaging is on a fair at the [facility] did not see the need to see anybody including cardiology and myself in town. Patient apparently was washing his car and cleaning his car outside when he fell going into the house and found on the driveway by his neighbor was significantly confused have left-sided weakness neighbor called 911 came for evaluation and recommended the patient transferred to [facility] department. Patient brought to [facility] continue to have slight left- sided weakness continue not to feel well overall with slight confusion did not close to his baseline according to his family. Patient doesn't remember the event according to him doesn't believe he passed out but he was week trip and felt mostly. CT of the brain showed no acute intracranial hemorrhage or abnormality nonspecific white matter most likely small vessel disease. Also CT angiogram showed no evidence of dissection of the cervical internal carotid artery or vertebral artery or any evidence of significant stenosis. EKG shows sinus rhythm with slight bradycardia on and off patient have left ventricular hypertrophy only. His blood pressure at presentation was 140/70 with pulse of 60 patient was very stable. Laboratory value shows normal CBC with normal chemistry normal troponin. Patient was admitted to the hospital for TIA will be evaluated by neurology is no sign of seizure or seizure activity at this point. REVIEW OF SYSTEMS Constitutional: No fever, no chills, no night sweats. No weight change. No weakness, fatigue or lethargy. No daytime sleepiness. EENT: No headache. No blurred vision or double vision, no loss of vision. No loss of Hearing, no ringing in the ears, no dizziness. No nasal drainage or congestion. No epistaxis. No sore throat. Lungs: No shortness of breath, cough, no sputum production. No wheezing. Cardiovascular: History of coronary disease post bypass surgery a few years ago has been on medical management and been seen only by the [facility]. Abdominal: No abdominal pain. No nausea, vomiting. No diarrhea. No constipati on. No bloody or tarry stools.. No loss of appetite. Genitourinary: No dysuria, increased frequency, urgency. No urinary retention. Musculoskeletal: No myalgias. No muscle weakness, no gait dysfunction, no frequent falls. No back pain. No neck pain. Integumentary: No wounds, no lesions. No rash or pruritus. No unusual bruising. No change in hair or nails. Neurologic: Slight confusion with paresthesia of the left side and slight weakness in the left side compared to the right side. Psychiatric: No depression. No anxiety. No mood swings. Endocrine: No abnormal blood sugars. No weight change. No excessive sweating or thirst. No cold intolerance. SOCIAL HISTORY He never smoke, no alcohol abuse, he is retired and and lives with his . FAMILY HISTORY Has 3 children one of them has myasthenia gravis, patient has 3 siblings one of them from complication of multiple sclerosis and MD, has 2 living siblings current age with no major medical problem. His father age 70 from COPD mother age 90 from old age. PHYSICAL EXAMINATION Gen: This is a well-developed laying in bed does not look in any respiratory distress is more clear at this point based family believe still not back to his baseline. HEENT: Head is atraumatic, normocephalic. Pupils equal, round. Sclerae is anict jp. NECK: Supple. No JVD. No lymphadenopathy. No thyromegaly. LUNGS: Clear to auscultation. No wheezes or rhonchi. No intercostal retractions. HEART: Regular rate and rhythm. Mild systolic murmur ABDOMEN: Soft. Bowel sounds are present. No masses. No tenderness. EXTREMITIES: No pedal edema. No calf tenderness. NEUROLOGICAL: Patient is awake, alert and oriented x3 and confusion.. Cranial ne rves 2 through 12 are grossly intact. Still have slight weakness in the left side compared to the right side no droopy face was found. ASSESSMENT AND PLAN 1. TIA/CVA: Patient still have slight left-sided weakness, will be admitted to the hospital continue aspirin, continue statin, consult neurology echocardiogram with study be done with her need an MRI or not be left up to neurology. Was start patient on PTOT and the next 24 hours. 2 coronary artery disease post bypass surgery in the past: Has not seen cardiology last few years he could not tolerate beta jake because of severe bradycardia the still on atorvastatin, amlodipine and aspirin continue medication at this point echocardiogram will be done this time. 3 hypertension: Has been on amlodipine 5 mg twice a day continue medication. 4 hyperlipidemia: Continue patient on atorvastatin 10 mg daily. 5 BPH with mild hypertension: Has done well on tamsulosin and finasteride continue both medication at this point. 6 GI prophylaxis: Patient be started Pepcid 20 mg daily. 7 DVT prophylaxis: Early mobilization and knee-high YASEMIN hose. Patient will be admitted to the hospital for observation. Past Medical History Past Medical History: Coronary Artery Disease (CAD), Chest Pain / Angina, GERD/Reflux, Hyperlipidemia, Hypertension History of Any Multi-Drug Resistant Organisms: None Reported Past Surgical History: Coronary Bypass/CABG Additional Past Surgical History / Comment(s): Open heart Past Psychological History: No Psychological Hx Reported Past Alcohol Use History: None Reported Past Drug Use History: None Reported Medications and Allergies Home Medications Medication Instructions Recorded Confirmed Type Aspirin 81 mg PO DAILY 12/13/14 09/23/21 History Simvastatin 20 mg PO HS 12/13/14 09/23/21 History amLODIPine [Norvasc] 5 mg PO BID 12/13/14 09/23/21 History Tamsulosin [Flomax] 0.4 mg PO DAILY 12/05/18 09/23/21 History hydroCHLOROthiazide [Hydrodiuril] 25 mg PO DAILY 12/05/18 09/23/21 History Finasteride [Proscar] 5 mg PO DAILY 09/23/21 09/23/21 History Allergies Allergy/AdvReac Type Severity Reaction Status Date / Time No Known Allergies Allergy Verified 09/23/21 17:38 Physical Exam Vitals: Vital Signs Temp Pulse Resp BP Pulse Ox 09/23/21 20:31 63 18 141/64 97 09/23/21 18:34 58 L 18 133/69 98 09/23/21 18:00 64 18 120/63 98 09/23/21 17:00 63 18 115/86 98 09/23/21 16:54 98.5 F 80 18 116/71 97 Intake and Output 09/23/21 09/23/21 09/23/21 06:59 14:59 22:59 Other: Weight 83.915 kg Results CBC & Chem 7: 09/24/21 07:13 09/24/21 07:13 Labs: Abnormal Lab Results - Last 24 Hours (Table) 09/23/21 09/23/21 Range/Units 17:01 17:01 APTT 20.9 L (22.0-30.0) sec Sodium 134 L (137-145) mmol/L
--- NOTE | 2021-09-24 09:49 | P.PN ---
Subjective Progress Note Date: 09/24/21 HISTORY OF PRESENT ILLNESS 50-year-old male one of my office patient who has not been seen in the last few years or since apparently started according to him feel he has been averaging is [facility] a [facility] did not see the need to see anybody including cardiology and myself in town. Patient apparently was washing his car and cleaning his car outside when he fell going into the house and found on the driveway by his neighbor was significantly confused have left-sided weakness neighbor called 911 came for evaluation and recommended the patient transferred to [facility]. Patient brought to [facility] continue to have slight left-sided weakness continue not to feel well overall with slight confusion did not close to his baseline according to his family. Patient doesn't remember the event according to him doesn't believe he passed out but he was week trip and felt mostly. CT of the brain showed no acute intracranial hemorrhage or abnormality nonspecific white matter most likely small vessel disease. Also CT angiogram showed no evidence of dissection of the cervical internal carotid artery or vertebral artery or any evidence of significant stenosis. EKG shows sinus rhythm with slight bradycardia on and off patient have left ventricular hypertrophy only. His blood pressure at presentation was 140/70 with pulse of 60 patient was very stable. Laboratory value shows normal CBC with normal chemistry normal troponin. Patient was admitted to the hospital for TIA will be evaluated by neurology is no sign of seizure or seizure activity at this point. 09/24: Patient is feeling much better this morning, will be seen neurology, still pending echocardiogram bubble study to see if is any finding of patent baldwin ovale or any thrombus. No sign of A. fib on heart monitor, patient had mild bradycardia last night but is not in any beta jake which this was observed in the past last time he was hospitalized reason why his beta jake was taking out patient did not require any pacemaker the time. REVIEW OF SYSTEMS Constitutional: No fever, no chills, no night sweats. No weight change. No weakness, fatigue or lethargy. No daytime sleepiness. EENT: No headache. No blurred vision or double vision, no loss of vision. No loss of Hearing, no ringing in the ears, no dizziness. No nasal drainage or congestion. No epistaxis. No sore throat. Lungs: No shortness of breath, cough, no sputum production. No wheezing. Cardiovascular: History of coronary disease post bypass surgery a few years ago has been on medical management and [facility]. Abdominal: No abdominal pain. No nausea, vomiting. No diarrhea. No constipation. No bloody or tarry stools.. No loss of appetite. Genitourinary: No dysuria, increased frequency, urgency. No urinary retention. Musculoskeletal: No myalgias. No muscle weakness, no gait dysfunction, no frequent falls. No back pain. No neck pain. Integumentary: No wounds, no lesions. No rash or pruritus. No unusual bruising. No change in hair or nails. Neurologic: Slight confusion with paresthesia of the left side and slight weakness in the left side compared to the right side. Psychiatric: No depression. No anxiety. No mood swings. Endocrine: No abnormal blood sugars. No weight change. No excessive sweating or thirst. No cold intolerance. PHYSICAL EXAMINATION Gen: This is a well-developed laying in bed does not look in any respiratory distress is more clear at this point based family believe still not back to his baseline. HEENT: Head is atraumatic, normocephalic. Pupils equal, round. Sclerae is anicteric. NECK: Supple. No JVD. No lymphadenopathy. No thyromegaly. LUNGS: Clear to auscultation. No wheezes or rhonchi. No intercostal retractions. HEART: Regular rate and rhythm. Mild systolic murmur ABDOMEN: Soft. Bowel sounds are present. No masses. No tenderness. EXTREMITIES: No pedal edema. No calf tenderness. NEUROLOGICAL: Patient is awake, alert and oriented x3 and confusion.. Cranial nerves 2 through 12 are grossly intact. Still have slight weakness in the left side compared to the right side no droopy face was found. ASSESSMENT AND PLAN 1. TIA/CVA: Patient still have slight left-sided weakness, will be admitted to the hospital continue aspirin, continue statin, consult neurology echocardiogram with study be done with her need an MRI or not be left up to neurology. Was start patient on PTOT and the next 24 hours. 2 coronary artery disease post bypass surgery in the past: Has not seen cardiology last few years he could not tolerate beta jake because of severe bradycardia the still on atorvastatin, amlodipine and aspirin continue medication at this point echocardiogram will be done this time. 3 hypertension: Has been on amlodipine 5 mg twice a day continue medication. 4 hyperlipidemia: Continue patient on atorvastatin 10 mg daily. 5 BPH with mild hypertension: Has done well on tamsulosin and finasteride continue both medication at this point. 6 GI prophylaxis: Patient be started Pepcid 20 mg daily. 7 DVT prophylaxis: Early mobilization and knee-high YASEMIN hose. After completing study patient is doing well hopefully will be discharged patien t home and follow-up as an outpatient. Objective - Vital Signs Vital signs: Vital Signs Temp 98.2 F 09/24/21 00:00 Pulse 56 L 09/24/21 04:00 Resp 18 09/24/21 04:00 BP 138/76 09/24/21 04:00 Pulse Ox 95 09/24/21 07:27 Intake & Output 09/23/21 09/24/21 09/24/21 18:59 06:59 18:59 Intake Total 240 Balance 240 Weight 83.915 kg Intake: Oral 240 Other: # Voids 3 - Labs CBC & Chem 7: 09/24/21 07:13 09/24/21 07:13 Labs: Abnormal Lab Results - Last 24 Hours (Table) 09/23/21 09/23/21 09/24/21 Range/Units 17:01 17:01 07:13 APTT 20.9 L (22.0-30.0) sec Sodium 134 L (137-145) mmol/L Creatinine 0.65 L (0.66-1.25) mg/dL
--- NOTE | 2021-09-24 10:23 | P.CNNES ---
History of Present Illness Consult date: 09/24/21 Requesting physician: Mark Jack Reason for Consult: TIA History of Present Illness: This is an 80-year-old gentleman with a history of coronary artery disease status post bypass, hypertension, hyperlipidemia, benign prostate hyperplasia who presented emergency department on 09/23/2021 for left-sided weakness and c onfusion. Some of the history is obtained from medical record that. Was a heart obtained the history and Vences from the patient but he stated that he was outside the in the driveway cleaning his car and then he fell and it seems that the patient had left-sided weakness and was confused. Patient does not recall the event and he does not believe he passed out. He seems to the patient has been having the frequent falls. EMS felt the patient had left facial droop and left arm drift. Patient is on aspirin 81 mg and simvastatin 20 mg daily at bedtime Of note patient stated that he walks with a walker at home and sometimes uses a cane. Some of the workup in our facility consisted of: CBC with differential and chemistry panel is unremarkable CT of the head is reported as no acute intracranial process. Nonspecific white matter changes likely secondary due to chronic small vessel ischemic disease. CT angiography of the head and neck is reported as no evidence of dissection of the cervical internal carotid arteries or vertebral arteries or any evidence of significant stenosis at the carotid bifurcation. No evidence of high-grade stenosis or intracranial aneurysm. Diminutive right vertebral artery and its intracranial portion which limits evaluation for patency. There is dominant left vertebral artery which is patent with mild atherosclerotic of intracranial portion. EKG is reported as sinus rhythm with sinus arrhythmia. Possible left atrial enlargement that. Moderate intraventricular conduction delay. Stroke code was activated and the ED spoke with the stroke attending. NIH was a 0. No IV TPA since the patient was back to baseline in the ED. And the risk outweighed the benefit for TPA. Review of Systems Review of system: The 12 point system was reviewed and apparent positive and negative per HPI. Past Medical History Past Medical History: Coronary Artery Disease (CAD), Chest Pain / Angina, GERD/Reflux, Hyperlipidemia, Hypertension History of Any Multi-Drug Resistant Organisms: None Reported Past Surgical History: Coronary Bypass/CABG Additional Past Surgical History / Comment(s): Open heart Past Psychological History: No Psychological Hx Reported Past Alcohol Use History: None Reported Past Drug Use History: None Reported Medications and Allergies Home Medications Medication Instructions Recorded Confirmed Type Aspirin 81 mg PO DAILY 12/13/14 09/23/21 History Simvastatin 20 mg PO HS 12/13/14 09/23/21 History amLODIPine [Norvasc] 5 mg PO BID 12/13/14 09/23/21 History Tamsulosin [Flomax] 0.4 mg PO DAILY 12/05/18 09/23/21 History hydroCHLOROthiazide [Hydrodiuril] 25 mg PO DAILY 12/05/18 09/23/21 History Finasteride [Proscar] 5 mg PO DAILY 09/23/21 09/23/21 History Allergies Allergy/AdvReac Type Severity Reaction Status Date / Time No Known Allergies Allergy Verified 09/23/21 17:38 Physical Examination - Vital Signs Vital Signs: Vital Signs Temp Pulse Pulse Resp BP BP Pulse Ox 09/24/21 09:05 97.6 F 60 16 166/92 100 09/24/21 07:27 95 09/24/21 04:00 56 L 18 138/76 97 09/24/21 02:00 56 L 18 09/24/21 00:00 98.2 F 60 18 144/70 98 09/23/21 22:09 20 09/23/21 20:31 63 18 141/64 97 09/23/21 18:34 58 L 18 133/69 98 09/23/21 18:00 64 18 120/63 98 09/23/21 17:00 63 18 115/86 98 09/23/21 16:54 98.5 F 80 18 116/71 97 Intake and Output 09/23/21 09/24/21 09/24/21 22:59 06:59 14:59 Intake Total 240 240 Balance 240 240 Intake: Oral 240 240 Other: # Voids 3 Weight 83.915 kg GENERAL: The patient is lying in bed and is not in acute distress. CHEST: The heart rate is regular rate rhythm. No murmurs to auscultation. LUNG: Clear to auscultation bilaterally no wheezing noted throughout. Not labored breathing. ABDOMEN/GI: Bowel sounds present in all 4 quadrants. No tenderness to palpation throughout. NEUROLOGICAL: Higher mental function: The patient is awake, alert, oriented to self, place and time. Patient is following commands. No aphasia and no neglect. Cranial nerves: The pupils are round, equal and reactive to light and accommoda tion. Visual morales are full to confrontation throughout. Extraocular movement is intact no nystagmus is noted. Facial sensation is normal to touch throughout. The facial strength is normal throughout. Hearing is severely decreased bilaterally to hand rub. Tongue is midline and moved [id number] without any difficulty. No dysarthria is noted. Shoulder shrug is normal bilaterally. Motor: Gait: Patient is dragging his right lower extremity and taking small steps using a walker. The strength is right lower extremity is 4+ while left is 5-. Otherwise 5 over 5 throughout. Normal tone and bulk. Cerebellum: Normal finger to nose bilaterally. Sensation: Sensation is normal to touch throughout. Reflexes (right/left): 1+ in uppers, patellars are 2+ and ankles are 1+. Plantars are mutebilaterally. Results - Laboratory Findings CBC and BMP: 09/24/21 07:13 09/24/21 07:13 Abnormal Lab Findings: Abnormal Labs 09/23/21 09/23/21 09/24/21 17:01 17:01 07:13 APTT 20.9 L Sodium 134 L Creatinine 0.65 L Assessment and Plan Assessment: Recent fall with reported transient left sided weakness and confusion. On exam ination patient has right lower extremity weakness and minimal left facial droop. Rule out stroke vs lumbar spondylosis Transeint reported Encephalopathy of unknown etiology History of coronary artery disease status post bypass Hypertension Hyperlipidemia Benign prostate hyperplasia Very hard of hearing Plan: Continue patient on medication of aspirin 81 daily. I will not start the patient on dual antiplatelet until I receive MRI of the brain and lumbar. If MRI does show any ischemic stroke then will consider starting on dual antiplatelet. Patient is on the Lipitor 10 mg daily at bedtime Ordered a routine EEG because of the reported episode of confusion to rule out seizure. Ordered TSH, vitamin B12, folate, hemoglobin A1c 2-D echo was ordered and the potentials ordered and are pending PT OT and INSPECTOR AND CLERK are consulted Continue neuro checks On cardiac monitoring We'll defer the rest of the medical management to the primary team. Thank you for the consultation. Dr. Healy is covering neurology service tomorrow AM then Dr. Amaya starts Monday AM. Pierre Barker M.D. Neuro-Hospitalist Time with Patient: Greater than 30
[2021-09-24] MEDS: SODIUM CHLORIDE 0.9% 1,000 ML IV SCH (18:11)
--- NOTE | 2021-09-24 19:01 | EEG ---
ELECTROENCEPHALOGRAM REPORT DATE OF SERVICE: 09/24/2021. CLINICAL HISTORY: This is an 80-year-old gentleman with altered mental status. The video EEG is obtained to evaluate for seizure epileptiform activity. RELEVANT MEDICATION: The patient is not on any antiepileptic drugs. EEG TYPE: A routine 21-channel EEG is performed with video using the 10/20 electrode placement system. DESCRIPTION: Wakefulness is only obtained. During awake state, the background consists of low to moderate voltage of 8 to 9 hertz. There is no physiological stage II sleep architecture seen. There is no focal slowing. Interictal and ictal is none. ACTIVATION PROCEDURE: Photic stimulation did not evoke a posterior driving response. There is no abnormality during the photic stimulation. Hyperventilation is not performed. CLINICAL INTERPRETATION: This is a normal routine EEG. There is no focal slowing, epileptiform discharge or seizure on the EEG. Clinical correlation is recommended. RAMIN / ALONSO: [id number] / MTDD
[2021-09-24] MEDS ORDERED: ATORVASTATIN 10 MG TAB PO SCH (21:00)
[2021-09-25 08:02] VITALS: RESP 20
[2021-09-25] MEDS: FAMOTIDINE 20 MG TAB PO SCH (08:47)
[2021-09-25] MEDS: ASPIRIN 81 MG PO SCH (08:47)
[2021-09-25] MEDS: amLODIPine 5 MG TAB PO SCH (08:47)
[2021-09-25] MEDS: FINASTERIDE 5 MG TAB PO SCH (08:47)
[2021-09-25] MEDS: TAMSULOSIN 0.4 MG CAP.ER.24H PO SCH (08:47)
[2021-09-25 09:19] LABS: Chol/HDL Ratio 2.08 Ratio; LDL Cholesterol,Calculated 53.8 mg/dL (0.0-131.0); VLDL Calculation 11.14 mg/dL (5.00-40.00)
--- NOTE | 2021-09-25 09:50 | P.DS ---
Providers Date of admission: 09/23/21 18:19 Attending physician: Curry Nair Consults: 09/23/21 18:20 Consult Physician Routine Consulting Provider: Pierre Barker Consult Reason/Comments: TIA Do you want consulting provider notified?: Yes Primary care physician: Curry Nair [facility] Course: HISTORY OF PRESENT ILLNESS 50-year-old male one of my office patient who has not been seen in the last few years or since apparently started according to him feel he has been averaging is on a fair at the [facility] did not see the need to see anybody including cardiology and myself in town. Patient apparently was washing his car and cleaning his car outside when he fell going into the house and found on the driveway by his neighbor was significantly confused have left-sided weakness neighbor called 911 came for evaluation and recommended the patient transferred to [facility] department. Patient brought to [facility] continue to have slight left- sided weakness continue not to feel well overall with slight confusion did not close to his baseline according to his family. Patient doesn't remember the event according to him doesn't believe he passed out but he was week trip and felt mostly. CT of the brain showed no acute intracranial hemorrhage or abnormality nonspecific white matter most likely small vessel disease. Also CT angiogram showed no evidence of dissection of the cervical internal carotid artery or vertebral artery or any evidence of significant stenosis. EKG shows sinus rhythm with slight bradycardia on and off patient have left ventricular hypertrophy only. His blood pressure at presentation was 140/70 with pulse of 60 patient was very stable. Laboratory value shows normal CBC with normal chemistry normal troponin. Patient was admitted to the hospital for TIA will be evaluated by neurology is no sign of seizure or seizure activity at this point. 09/24: Patient is feeling much better this morning, will be seen neurology, still pending echocardiogram bubble study to see if is any finding of patent baldwin ovale or any thrombus. No sign of A. fib on heart monitor, patient had mild bradycardia last night but is not in any beta jake which this was observed in the past last time he was hospitalized reason why his beta jake was taking out patient did not require any pacemaker the time. 09/25: Patient states that he is feeling better today compared to yesterday. MRI was completed today. Patient is anxious to go home. No sign of atrial fibrillation on heart monitor. Patient does have mild bradycardia. Dual anti- platelet is on hold until after the results of MRI. Patient is cleared to go home if cleared by neurology. Patient instructed to follow up with primary care physician upon discharge. Discharge diagnosis 1. TIA/CVA: Patient still have slight left-sided weakness 2 coronary artery disease post bypass surgery in the past: 3 hypertension: 4 hyperlipidemia: 5 BPH with mild hypertension: Discharge disposition: Home with self-care Impression and plan of care have been directed as dictated by the signing physician. Saira Moore nurse practitioner acting as scribe for signing physician. Patient Condition at Discharge: Fair Plan - Discharge Summary Discharge Rx Participant: No New Discharge Prescriptions: Continue Aspirin 81 mg PO DAILY amLODIPine [Norvasc] 5 mg PO BID Simvastatin 20 mg PO HS Tamsulosin [Flomax] 0.4 mg PO DAILY hydroCHLOROthiazide [Hydrodiuril] 25 mg PO DAILY Finasteride [Proscar] 5 mg PO DAILY Discharge Medication List Aspirin 81 mg PO DAILY 12/13/14 [History] Simvastatin 20 mg PO HS 12/13/14 [History] amLODIPine [Norvasc] 5 mg PO BID 12/13/14 [History] Tamsulosin [Flomax] 0.4 mg PO DAILY 12/05/18 [History] hydroCHLOROthiazide [Hydrodiuril] 25 mg PO DAILY 12/05/18 [History] Finasteride [Proscar] 5 mg PO DAILY 09/23/21 [History] Follow up Appointment(s)/Referral(s): Curry Nair MD [Primary Care Provider] - 1-2 days
[2021-09-25 11:34] VITALS: BP 160/74; PULSE 60; TEMP 98.2
--- NOTE | 2021-09-25 14:23 | MR ---
EXAMINATION TYPE: MR brain/lspine wo con DATE OF EXAM: 09/25/2021 COMPARISON: None HISTORY: Stroke, left facial weakness and confusion, low back pain with right leg weakness Multiplanar multiecho imaging of the brain and lumbar spine without contrast. Brain Diffusion images show no evidence of an acute infarct. Ventricles are fairly normal size. There is no mass effect nor midline shift. There is cerebral cortical atrophy. There is thinning of the corpus c allosum. There is extensive increased signal in the periventricular white matter that measures up to 1 cm in thickness. There is 5 mm focus of increased signal within the central alpesh. Sella turcica is intact. IMPRESSION: Cerebral atrophy and extensive chronic white matter changes probably related to microvascular ischemi a. No acute cortical infarct. Lumbar spine. The lumbar vertebrae have normal alignment. There is narrowing of disc spaces throughout the lumbar s pine. No compression fracture. There is degenerative spurring of the endplates. There is no lumbar pa raspinal mass. The sacroiliac joints are intact. 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 No compression fracture. No significant spinal st enosis.
--- NOTE | 2021-09-25 15:29 | P.PN ---
Subjective Progress Note Date: 09/25/21 The patient is an 80-year-old male who is seen in neurologic follow-up on September 25, 2021, via teleneurology. The patient is seated in the bedside chair. He is anxious to go home. He reports that he has been up walking in the room and walking with physical therapy. He says he is doing just fine. He did reportedly have his MRI at approximately 8 AM this morning. Chart is reviewed. Per neurology consultation, the patient reportedly had a fall him a outside while cleaning his car. He was reportedly confused with left-sided weakness. The patient himself does not recall this. CT scan of the brain was performed in the emergency department. There is no reported evidence of acute hemorrhage or infarct. EEG was performed. This was negative for seizure activity. The patient does have a history of coronary artery disease, hyperlipidemia, hypertension. Objective - Vital Signs Vital signs: Vital Signs Temp 98.2 F 09/25/21 11:33 Pulse 60 09/25/21 11:33 Resp 20 09/25/21 11:33 BP 160/74 09/25/21 11:33 Pulse Ox 98 09/25/21 11:33 Intake & Output 09/24/21 09/25/21 09/25/21 18:59 06:59 18:59 Intake Total 680 360 416 Balance 680 360 416 Intake: Oral 680 360 416 Other: # Voids 2 3 2 - Exam Gen.: The patient is seated in the bedside chair. He is in no acute distress. HEENT: Head is atraumatic, normocephalic. Fundus not visualized. There is no scleral icterus. Mucous membranes are moist. Neurological examination Mental status: The patient is awake and alert. He is able to answer questions appropriately. His speech is clear. He is very hard of hearing. Cranial nerves: 2-12 grossly intact - Labs CBC & Chem 7: 09/24/21 07:13 09/24/21 07:13 Labs: Abnormal Lab Results - Last 24 Hours (Table) 09/23/21 Range/Units 17:01 HDL Cholesterol 60.10 H (40.00-60.00) mg/dL Assessment and Plan Assessment: 1. Recent fall with reported transient left sided weakness and confusion. On examination patient has right lower extremity weakness and minimal left facial droop. Rule out stroke vs lumbar spondylosis 2. Transeint reported Encephalopathy of unknown etiology 3. History of coronary artery disease status post bypass 4. Hypertension 5. Hyperlipidemia 6. Benign prostate hyperplasia 7. Very hard of hearing 8. Normal total cholesterol, HDL, triglycerides, LDL, hemoglobin A1c, TSH and vitamin B12 levels Plan: 1. MRI brain has been completed. There is no evidence of acute hemorrhage or infarct. There is reported chronic ischemic white matter changes, therefore the patient can be discharged on aspirin 81 mg, statin and antihypertensive medications 2. The patient should follow up with his family doctor after discharge Time with Patient: Less than 30 (Spent 10 minutes with patient via telemedicine)
--- NOTE | 2021-09-28 13:21 | CA ---
Transthoracic Echo Report Name: Shantanu Fish Age: 80 Gender: M : 1940 Exam Date: 09/24/2021 07:46 Exam Location: [facility] Ht (in): 71 Wt (lb): 185 Ordering Physician: Curry Nair MD Attending/Referring Phys: Process Supervisor Suzanne Contreras, BLAYNE Procedure CPT: Indications: lvfunction Cardiac Hx: Hx of bypass, htn, cva, chol. Technical Quality: Good Contrast 1: Total Dose (mL): Contrast 2: Total Dose (mL): MEASUREMENTS (Male / Female) Normal Values 2D ECHO LV Diastolic Diameter PLAX 4.1 cm 4.2 - 5.9 / 3.9 - 5.3 cm LV Systolic Diameter PLAX 2.1 cm IVS Diastolic Thickness 1.1 cm 0.6 - 1.0 / 0.6 - 0.9 cm LVPW Diastolic Thickness 1.4 cm 0.6 - 1.0 / 0.6 - 0.9 cm LV Relative Wall Thickness 0.6 RV Internal Dim ED PLAX 2.5 cm LA Volume 48.6 cm??? 18 - 58 / 22 - 52 cm??? M-MODE Aortic Root Diameter MM 3.6 cm LA Systolic Diameter MM 4.1 cm LA Ao Ratio MM 1.1 MV E Point Septal Separation 1.0 cm AV Cusp Separation MM 1.7 cm DOPPLER AI Peak Velocity 227.1 cm/s AI Peak Gradient 20.6 mmHg AI Pressure Half Time 932.7 ms MV Area PHT 3.5 cm??? MR Peak Velocity 182.7 cm/s MR Peak Gradient 13.4 mmHg Mitral E Point Velocity 98.7 cm/s Mitral A Point Velocity 91.7 cm/s Mitral E to A Ratio 1.1 MV Deceleration Time 216.0 ms MV E' Velocity 9.0 cm/s Mitral E to MV E' Ratio 11.0 TR Peak Velocity 186.5 cm/s TR Peak Gradient 13.9 mmHg Right Ventricular Systolic Press 18.7 mmHg FINDINGS Left Ventricle Mildly increased septal wall thickness. Left ventricular ejection fraction is estimated at 55-60 %. Left ventricular cavity size normal. Right Ventricle The right ventricle is normal in size and function. Right Atrium The right atrium is normal in size. Left Atrium The left atrium is normal in size. Mitral Valve Structurally normal mitral valve without significant stenosis or prolapse. There is mild mitral regurgitation. Mitral valve thickened. Aortic Valve Structurally normal aortic valve without significant sclerosis or stenosis. There is no aortic regurgitation. Mild aortic regurgitation. Tricuspid Valve Structurally normal tricuspid valve without significant stenosis. Pulmonary artery systolic pressure is normal. Mild tricuspid regurgitation. Pulmonic Valve Structurally normal pulmonic valve without significant stenosis. There is no pulmonic regurgitation. Pericardium Normal pericardium without effusion. Aorta Normal aortic root dimension. CONCLUSIONS Mildly increased septal wall thickness. Left ventricular ejection fraction is estimated at 55-60 %. Mild mitral regurgitation Mild tricuspid regurgitation Mild aortic regurgitation. Previewed by: Dr. Nav Perez DO (Electronically Signed) Final Date: 24 Sep 2021 12:45
== END 2021-09-25 15:55 | disposition home or self-care (01) ==
LOC: EC 16:53 → 3SCARD 18:19
PROVIDERS: ADMIT Internal Medicine Geriatric Medicine; ATTEND Internal Medicine Geriatric Medicine
DX: G45.9 Transient cerebral ischemic attack, unspecified (principal); I25.10 Atherosclerotic heart disease of native coronary artery without angina pectoris; I11.9 Hypertensive heart disease without heart failure; E78.5 Hyperlipidemia, unspecified; G93.40 Encephalopathy, unspecified; R29.703 NIHSS score 3; R29.6 Repeated falls; Z79.82 Long term (current) use of aspirin; Z79.899 Other long term (current) drug therapy; H91.90 Unspecified hearing loss, unspecified ear; R00.1 Bradycardia, unspecified; Z82.69 Family history of other diseases of the musculoskeletal system and connective tissue; K21.9 Gastro-esophageal reflux disease without esophagitis; I45.9 Conduction disorder, unspecified; N40.0 Benign prostatic hyperplasia without lower urinary tract symptoms; W19.XXXA Unspecified fall, initial encounter; Z95.1 Presence of aortocoronary bypass graft; Z82.5 Family history of asthma and other chronic lower respiratory diseases; Z82.0 Family history of epilepsy and other diseases of the nervous system
CPT/HCPCS: 99291; 96360; 36415; 95816; 93005; 93306; 97116; 97162; 97166; 92523; 80061; 80053 ×2; 84443; 82607; 82140; 82746; 84484; 85025; 85027; 85610; 85730; 83036; 71046; 70496; 70450; 70498; 70551; 72148; G0378 ×3; S0138 ×2; Q9967

== ENCOUNTER 2022-02-05 09:11 | Emergency (ER) | payer MEDICARE ==
--- NOTE | 2022-02-05 09:41 | ED ---
General Adult HPI - General Chief complaint: Urogenital Stated complaint: Weakness,frequent urination Time Seen by Provider: 02/05/22 09:30 Source: patient, family, RN notes reviewed, old records reviewed Mode of arrival: wheelchair Limitations: no limitations - History of Present Illness Initial comments: This is an 81-year-old male who presents emergency Department after he fell. Patient states he was going to the bathroom and went to sit on the toilet and slipped off of it and fell onto his butt. Patient denies any pain to the hips patient denies any pain like patient denies any head or neck. Patient denies any pain or injury at this time. Patient states prior to going to the bathroom he felt fine he is not complaining of any chest pain or difficulty breathing or palpitations. Patient denies any recent fever chills or cough per patient denies any nausea vomiting diarrhea. Patient states he currently has no symptoms whatsoever and feels at his baseline. - Related Data Home Medications Medication Instructions Recorded Confirmed Aspirin 81 mg PO DAILY 12/13/14 09/23/21 Simvastatin 20 mg PO HS 12/13/14 09/23/21 amLODIPine [Norvasc] 5 mg PO BID 12/13/14 09/23/21 Tamsulosin [Flomax] 0.4 mg PO DAILY 12/05/18 09/23/21 hydroCHLOROthiazide [Hydrodiuril] 25 mg PO DAILY 12/05/18 09/23/21 Finasteride [Proscar] 5 mg PO DAILY 09/23/21 09/23/21 Previous Rx's Medication Instructions Recorded Sulfamethox-Tmp 800-160Mg [Bactrim 1 each PO Q12HR #14 tab 02/05/22 DS 800-160 mg] Allergies Allergy/AdvReac Type Severity Reaction Status Date / Time No Known Allergies Allergy Verified 02/05/22 09:24 Review of Systems ROS Statement: Those systems with pertinent positive or pertinent negative responses have been documented in the HPI. ROS Other: All systems not noted in ROS Statement are negative. Past Medical History Past Medical History: Coronary Artery Disease (CAD), Chest Pain / Angina, GERD/Reflux, Hyperlipidemia, Hypertension History of Any Multi-Drug Resistant Organisms: None Reported Past Surgical History: Coronary Bypass/CABG Additional Past Surgical History / Comment(s): Open heart Past Psychological History: No Psychological Hx Reported Smoking Status: Never smoker Past Alcohol Use History: None Reported Past Drug Use History: None Reported General Exam - General Exam Comments Initial Comments: GENERAL: Patient is well-developed and well-nourished. Patient is nontoxic and well- hydrated and is in no acute distress. ENT: Neck is soft and supple. No significant lymphadenopathy is noted. Oropharynx is clear. Moist mucous membranes. Neck has full range of motion without eliciting any pain. EYES: The sclera were anicteric and conjunctiva were pink and moist. Extraocular movements were intact and pupils were equal round and reactive to light. Eyelids were unremarkable. PULMONARY: Unlabored respirations. Good breath sounds bilaterally. No audible rales rhonchi or wheezing was noted. CARDIOVASCULAR: There is a regular rate and rhythm without any murmurs gallops or rubs. ABDOMEN: Patient has some very minimal tenderness in the suprapubic region SKIN: Skin is clear with no lesions or rashes and otherwise unremarkable. NEUROLOGIC: Patient is alert and oriented x3. Cranial nerves II through XII are grossly intact. Motor and sensory are also intact. Normal speech, volume and content. Symmetrical smile. MUSCULOSKELETAL: Normal extremities with adequate strength and full range of motion. Patient has edema to both feet which family states that his baseline. LYMPHATICS: No significant lymphadenopathy is noted PSYCHIATRIC: Normal psychiatric evaluation. Limitations: no limitations Course Vital Signs 02/05/22 02/05/22 02/05/22 09:22 09:47 10:00 Temperature 98.2 F Pulse Rate 97 67 80 Respiratory 16 18 18 Rate Blood Pressure 139/77 131/61 119/59 O2 Sat by Pulse 99 96 98 Oximetry 02/05/22 02/05/22 02/05/22 10:30 11:00 11:30 Temperature Pulse Rate 65 61 63 Respiratory 18 18 18 Rate Blood Pressure 109/58 105/59 124/58 O2 Sat by Pulse 97 98 97 Oximetry Medical Decision Making - Medical Decision Making EKG shows sinus rhythm at 70 bpm OH interval is 148 QRS is 99 QT interval 394 QTC is 4:15. Patient's EKG shows no ST segment elevation or depression. Patient's had a urinary tract infectious I gave the patient a gram of Rocephin emergency department. - Lab Data Result diagrams: 02/05/22 09:48 02/05/22 09:48 Lab Results 02/05/22 02/05/22 02/05/22 Range/Units 09:48 09:48 09:48 WBC 8.0 (3.8-10.6) k/uL RBC 4.48 (4.30-5.90) m/uL Hgb 14.3 (13.0-17.5) gm/dL Hct 43.5 (39.0-53.0) % MCV 97.1 (80.0-100.0) fL MCH 32.1 (25.0-35.0) pg MCHC 33.0 (31.0-37.0) g/dL RDW 12.7 (11.5-15.5) % Plt Count 194 (150-450) k/uL MPV 8.2 Neutrophils % 84 % Lymphocytes % 9 % Monocytes % 5 % Eosinophils % 0 % Basophils % 1 % Neutrophils # 6.8 (1.3-7.7) k/uL Lymphocytes # 0.7 L (1.0-4.8) k/uL Monocytes # 0.4 (0-1.0) k/uL Eosinophils # 0.0 (0-0.7) k/uL Basophils # 0.1 (0-0.2) k/uL Sodium 135 L (137-145) mmol/L Potassium 4.0 (3.5-5.1) mmol/L Chloride 96 L (98-107) mmol/L Carbon Dioxide 29 (22-30) mmol/L Anion Gap 10 mmol/L BUN 14 (9-20) mg/dL Creatinine 0.61 L (0.66-1.25) mg/dL Est GFR (CKD-EPI)AfAm >90 (>60 ml/min/1.73 sqM) Est GFR (CKD-EPI)NonAf >90 (>60 ml/min/1.73 sqM) Glucose 96 (74-99) mg/dL Calcium 9.3 (8.4-10.2) mg/dL Magnesium 1.8 (1.6-2.3) mg/dL Total Bilirubin 1.0 (0.2-1.3) mg/dL AST 21 (17-59) U/L ALT 12 (4-49) U/L Alkaline Phosphatase 89 (38-126) U/L Troponin I (0.000-0.034) ng/mL Total Protein 7.0 (6.3-8.2) g/dL Albumin 4.3 (3.5-5.0) g/dL Urine Color Light Yellow Urine Appearance Cloudy (Clear) Urine pH 7.5 (5.0-8.0) Ur Specific [place] 1.007 (1.001-1.035) Urine Protein Negative (Negative) Urine Glucose (UA) Negative (Negative) Urine Ketones Negative (Negative) Urine Blood Small H (Negative) Urine Nitrite Positive (Negative) Urine Bilirubin Negative (Negative) Urine Urobilinogen <2.0 (<2.0) mg/dL Ur Leukocyte Esterase Large H (Negative) Urine RBC 21 H (0-5) /hpf Urine WBC 79 H (0-5) /hpf Urine WBC Clumps Few H (None) /hpf Ur Squamous Epith Cells <1 (0-4) /hpf Amorphous Sediment Occasional H (None) /hpf Urine Bacteria Rare H (None) /hpf Urine Mucus Rare H (None) /hpf 02/05/22 Range/Units 09:48 WBC (3.8-10.6) k/uL RBC (4.30-5.90) m/uL Hgb (13.0-17.5) gm/dL Hct (39.0-53.0) % MCV (80.0-100.0) fL MCH (25.0-35.0) pg MCHC (31.0-37.0) g/dL RDW (11.5-15.5) % Plt Count (150-450) k/uL MPV Neutrophils % % Lymphocytes % % Monocytes % % Eosinophils % % Basophils % % Neutrophils # (1.3-7.7) k/uL Lymphocytes # (1.0-4.8) k/uL Monocytes # (0-1.0) k/uL Eosinophils # (0-0.7) k/uL Basophils # (0-0.2) k/uL Sodium (137-145) mmol/L Potassium (3.5-5.1) mmol/L Chloride (98-107) mmol/L Carbon Dioxide (22-30) mmol/L Anion Gap mmol/L BUN (9-20) mg/dL Creatinine (0.66-1.25) mg/dL Est GFR (CKD-EPI)AfAm (>60 ml/min/1.73 sqM) Est GFR (CKD-EPI)NonAf (>60 ml/min/1.73 sqM) Glucose (74-99) mg/dL Calcium (8.4-10.2) mg/dL Magnesium (1.6-2.3) mg/dL Total Bilirubin (0.2-1.3) mg/dL AST (17-59) U/L ALT (4-49) U/L Alkaline Phosphatase (38-126) U/L Troponin I 0.014 (0.000-0.034) ng/mL Total Protein (6.3-8.2) g/dL Albumin (3.5-5.0) g/dL Urine Color Urine Appearance (Clear) Urine pH (5.0-8.0) Ur Specific [place] (1.001-1.035) Urine Protein (Negative) Urine Glucose (UA) (Negative) Urine Ketones (Negative) Urine Blood (Negative) Urine Nitrite (Negative) Urine Bilirubin (Negative) Urine Urobilinogen (<2.0) mg/dL Ur Leukocyte Esterase (Negative) Urine RBC (0-5) /hpf Urine WBC (0-5) /hpf Urine WBC Clumps (None) /hpf Ur Squamous Epith Cells (0-4) /hpf Amorphous Sediment (None) /hpf Urine Bacteria (None) /hpf Urine Mucus (None) /hpf Disposition Clinical Impression: Urinary tract infection, Fall Disposition: HOME SELF-CARE Instructions (If sedation given, give patient instructions): Urinary Tract Infection in Men (ED), Fall Prevention for Older Adults (ED) Prescriptions: Sulfamethox-Tmp 800-160Mg [Bactrim DS 800-160 mg] 1 each PO Q12HR #14 tab Is patient prescribed a controlled substance at d/c from ED?: No Referrals: Curry Nair MD [Primary Care Provider] - 1-2 days Time of Disposition: 11:41
[2022-02-05 10:04] LABS: Basophils # (A) 0.1 k/uL (0-0.2); Basophils % (A) 1 %; Eosinophils % (A) 0 %; HCT 43.5 % (39.0-53.0); HGB 14.3 gm/dL (13.0-17.5); Lymphocytes # (A) 0.7 k/uL (1.0-4.8); Lymphocytes % (A) 9 %; MCH 32.1 pg (25.0-35.0); MCV 97.1 fL (80.0-100.0); Mean Platelet Volume 8.2; Monocytes # (A) 0.4 k/uL (0-1.0); Monocytes % (A) 5 %; Neutrophils # (A) 6.8 k/uL (1.3-7.7); Neutrophils % (A) 84 %; Platelet Count 194 k/uL (150-450); RBC 4.48 m/uL (4.30-5.90); RDW 12.7 % (11.5-15.5)
[2022-02-05 10:18] LABS: ALT 12 U/L (4-49); AST 21 U/L (17-59); African American GFR (CKD) >90 (>60 ml/min/1.73 sqM); Albumin 4.3 g/dL (3.5-5.0); Alkaline Phosphatase 89 U/L (38-126); Anion Gap 10 mmol/L; Blood Urea Nitrogen 14 mg/dL (9-20); Calcium 9.3 mg/dL (8.4-10.2); Carbon Dioxide 29 mmol/L (22-30); Chloride 96 mmol/L (98-107); Glucose 96 mg/dL (74-99); Magnesium 1.8 mg/dL (1.6-2.3); Non-African American GFR(CKD) >90 (>60 ml/min/1.73 sqM); Sodium 135 mmol/L (137-145)
[2022-02-05 10:25] LABS: Amorphous Sediment,Urine Occasional /hpf; Appearance,Urine Cloudy (Clear); Bacteria,Urine Rare /hpf; Bilirubin,Urine Negative (Negative); Blood,Urine Small (Negative); Color,Urine Light Yellow; Glucose,Urine (UA) Negative (Negative); Ketones,Urine Negative (Negative); Leukocyte Esterase,Urine Large (Negative); Mucus,Urine Rare /hpf; Nitrite,Urine Positive (Negative); PH, Urine 7.5 (5.0-8.0); Protein,Urine Negative (Negative); RBC,Urine 21 /hpf (0-5); Specific Gravity,Urine 1.007 (1.001-1.035); Squamous Epithelial Cell,Urine <1 /hpf (0-4); Urobilinogen,Urine <2.0 mg/dL (<2.0); WBC,Urine 79 /hpf (0-5)
[2022-02-05] MEDS ORDERED: cefTRIAXone IN SWFI 1,000 MG/10 ML SYRINGE IVP STA (10:53)
[2022-02-05 11:36] VITALS: RESP 18
[2022-02-05 12:21] VITALS: BP 127/61; PULSE 68; TEMP 99.1
== END 2022-02-05 17:12 | disposition home or self-care (01) ==
LOC: EC 09:11
DX: N39.0 Urinary tract infection, site not specified (principal); I25.10 Atherosclerotic heart disease of native coronary artery without angina pectoris; K21.9 Gastro-esophageal reflux disease without esophagitis; E78.5 Hyperlipidemia, unspecified; I10 Essential (primary) hypertension; Z79.82 Long term (current) use of aspirin; Z79.899 Other long term (current) drug therapy; W18.11XA Fall from or off toilet without subsequent striking against object, initial encounter
CPT/HCPCS: 99285; 96374; 36415; 93005; 80053; 83735; 84484; 85025; 81001; 87086; J0696

== ENCOUNTER 2022-02-07 09:21 | Emergency (ER) | payer MEDICARE ==
[2022-02-07 09:29] VITALS: BP 138/62; PULSE 70; RESP 15; TEMP 98.3
--- NOTE | 2022-02-07 09:33 | ED ---
General Adult HPI - General Chief complaint: Urogenital Stated complaint: Urine retention Time Seen by Provider: 02/07/22 09:23 Source: patient, EMS, RN notes reviewed, old records reviewed Mode of arrival: EMS Limitations: no limitations - History of Present Illness Initial comments: Patient is a pleasant 81-year-old male presenting to the emergency department requesting Vences catheter. Patient states he was up most the night with difficulty with urination. Patient states he has had similar symptoms previously associated with urinary retention that improved with Vences catheter. No fever. No vomiting. Patient did have a near fall this morning, no injury. No weakness. - Related Data Home Medications Medication Instructions Recorded Confirmed Aspirin 81 mg PO DAILY 12/13/14 09/23/21 Simvastatin 20 mg PO HS 12/13/14 09/23/21 amLODIPine [Norvasc] 5 mg PO BID 12/13/14 09/23/21 Tamsulosin [Flomax] 0.4 mg PO DAILY 12/05/18 09/23/21 hydroCHLOROthiazide [Hydrodiuril] 25 mg PO DAILY 12/05/18 09/23/21 Finasteride [Proscar] 5 mg PO DAILY 09/23/21 09/23/21 Previous Rx's Medication Instructions Recorded Sulfamethox-Tmp 800-160Mg [Bactrim 1 each PO Q12HR #14 tab 02/05/22 DS 800-160 mg] Allergies Allergy/AdvReac Type Severity Reaction Status Date / Time No Known Allergies Allergy Verified 02/07/22 09:29 Review of Systems ROS Statement: Those systems with pertinent positive or pertinent negative responses have been documented in the HPI. ROS Other: All systems not noted in ROS Statement are negative. Constitutional: Denies: fever Eyes: Denies: eye pain ENT: Denies: ear pain Respiratory: Denies: cough Cardiovascular: Denies: chest pain Endocrine: Denies: fatigue Gastrointestinal: Denies: abdominal pain Genitourinary: Reports: as per HPI, frequency Musculoskeletal: Denies: back pain Skin: Denies: rash Neurological: Denies: weakness Past Medical History Past Medical History: Coronary Artery Disease (CAD), Chest Pain / Angina, GERD/Reflux, Hyperlipidemia, Hypertension History of Any Multi-Drug Resistant Organisms: None Reported Past Surgical History: Coronary Bypass/CABG Additional Past Surgical History / Comment(s): Open heart Past Psychological History: No Psychological Hx Reported Smoking Status: Never smoker Past Alcohol Use History: None Reported Past Drug Use History: None Reported General Exam Limitations: no limitations General appearance: alert, in no apparent distress Head exam: Present: normocephalic Eye exam: Present: normal appearance Neck exam: Present: normal inspection Respiratory exam: Present: normal lung sounds bilaterally Cardiovascular Exam: Present: regular rate, normal rhythm GI/Abdominal exam: Present: soft, distended (Mild suprapubic distention with discomfort) Extremities exam: Present: normal inspection. Absent: tenderness Neurological exam: Present: alert. Absent: motor sensory deficit Psychiatric exam: Present: normal affect, normal mood Skin exam: Present: normal color Course Vital Signs 02/07/22 09:23 Temperature 98.3 F Pulse Rate 70 Respiratory 15 Rate Blood Pressure 138/62 O2 Sat by Pulse 98 Oximetry Medical Decision Making - Medical Decision Making Patient reevaluated and symptom-free following Vences catheter placement. Family requesting discharge. Disposition Clinical Impression: Urinary retention Disposition: HOME SELF-CARE Condition: Stable Instructions (If sedation given, give patient instructions): Urinary Retention in Men (ED) Additional Instructions: Please follow-up with primary care physician as and in the next day or 2. Please also follow-up with urology, number provided. Return for difficulty with urination, fever, weakness, worsening or change in symptoms or other concerns. Is patient prescribed a controlled substance at d/c from ED?: No Referrals: Curry Nair MD [Primary Care Provider] - 1-2 days Raul Lind MD [STAFF PHYSICIAN] - 1-2 days Time of Disposition: 10:07
== END 2022-02-07 10:12 | disposition home or self-care (01) ==
LOC: EC 09:21
DX: R33.9 Retention of urine, unspecified (principal); E78.5 Hyperlipidemia, unspecified; I10 Essential (primary) hypertension; Z95.1 Presence of aortocoronary bypass graft; Z79.82 Long term (current) use of aspirin
CPT/HCPCS: 51702; 87086; 99283

== ENCOUNTER 2022-02-27 11:59 | Inpatient (IN) | payer MEDICARE ==
--- NOTE | 2022-02-27 13:02 | ED ---
General Adult HPI - General Chief complaint: Recheck/Abnormal Lab/Rx Stated complaint: Generalized weakness, sacral Time Seen by Provider: 02/27/22 12:46 Source: patient, family, RN notes reviewed Mode of arrival: wheelchair Limitations: no limitations - History of Present Illness Initial comments: Patient is a pleasant 79-year-old male presenting to the emergency department with family with concerns for sacral wound. Patient is a somewhat poor histo javier and majority of history does come from sun. Patient is catheter dependent. Patient has recent urinary tract infection. Patient is generally weak. Patient is not getting out of bed or moving or ambulate. Patient is developing sacral wound that is worsening. Patient and his have limited ability to help him get out of bed or take care of the wound. Family is concerned the patient does need rehab. - Related Data Home Medications Medication Instructions Recorded Confirmed Aspirin 81 mg PO DAILY 12/13/14 09/23/21 Simvastatin 20 mg PO HS 12/13/14 09/23/21 amLODIPine [Norvasc] 5 mg PO BID 12/13/14 09/23/21 Tamsulosin [Flomax] 0.4 mg PO DAILY 12/05/18 09/23/21 hydroCHLOROthiazide [Hydrodiuril] 25 mg PO DAILY 12/05/18 09/23/21 Finasteride [Proscar] 5 mg PO DAILY 09/23/21 09/23/21 Previous Rx's Medication Instructions Recorded Sulfamethox-Tmp 800-160Mg [Bactrim 1 each PO Q12HR #14 tab 02/05/22 DS 800-160 mg] Allergies Allergy/AdvReac Type Severity Reaction Status Date / Time No Known Allergies Allergy Verified 02/27/22 12:43 Review of Systems ROS Statement: Those systems with pertinent positive or pertinent negative responses have been documented in the HPI. ROS Other: All systems not noted in ROS Statement are negative. Constitutional: Denies: fever Eyes: Denies: eye pain ENT: Denies: ear pain Respiratory: Denies: cough Cardiovascular: Denies: chest pain Endocrine: Reports: fatigue Gastrointestinal: Denies: abdominal pain Genitourinary: Reports: as per HPI Musculoskeletal: Denies: arthralgia Skin: Reports: as per HPI Past Medical History Past Medical History: Coronary Artery Disease (CAD), Chest Pain / Angina, GERD/Reflux, Hyperlipidemia, Hypertension History of Any Multi-Drug Resistant Organisms: None Reported Past Surgical History: Coronary Bypass/CABG Additional Past Surgical History / Comment(s): Open heart Past Psychological History: No Psychological Hx Reported Smoking Status: Never smoker Past Alcohol Use History: None Reported Past Drug Use History: None Reported General Exam Limitations: no limitations General appearance: alert, in no apparent distress Head exam: Present: normocephalic Eye exam: Present: normal appearance Neck exam: Present: normal inspection Respiratory exam: Present: normal lung sounds bilaterally Cardiovascular Exam: Present: regular rate, normal rhythm GI/Abdominal exam: Present: soft. Absent: tenderness Extremities exam: Present: normal inspection Neurological exam: Present: alert Psychiatric exam: Present: normal affect, normal mood Skin exam: Present: other (Sacral ulcer, approximately 3 cm diameter, stage II almost 3. There is some surrounding erythema) Course Vital Signs 02/27/22 12:40 Temperature 98.3 F Pulse Rate 83 Respiratory 18 Rate Blood Pressure 135/71 O2 Sat by Pulse 97 Oximetry EKG Findings - EKG Comments: EKG Findings:: Sinus rhythm rate 71. [place] 152. QRS 98. QT 392. QTC 415. Left axis. Normal QRS. No acute ST change. Sinus arrhythmia. Medical Decision Making - Medical Decision Making Patient reevaluated. Patient and family updated. Case was discussed with Dr. Patel, who will admit covering Dr. candelario. Patient will need placement. Patient did need two people to help transfer from wheelchair to bed. - Lab Data Result diagrams: 02/27/22 13:11 02/27/22 13:11 Lab Results 02/27/22 02/27/22 02/27/22 Range/Units 13:11 13:11 13:11 WBC 10.0 (3.8-10.6) k/uL RBC 4.27 L (4.30-5.90) m/uL Hgb 14.0 (13.0-17.5) gm/dL Hct 40.0 (39.0-53.0) % MCV 93.8 (80.0-100.0) fL MCH 32.8 (25.0-35.0) pg MCHC 35.0 (31.0-37.0) g/dL RDW 12.3 (11.5-15.5) % Plt Count 311 (150-450) k/uL MPV 8.1 Neutrophils % 81 % Lymphocytes % 10 % Monocytes % 6 % Eosinophils % 1 % Basophils % 0 % Neutrophils # 8.0 H (1.3-7.7) k/uL Lymphocytes # 1.0 (1.0-4.8) k/uL Monocytes # 0.6 (0-1.0) k/uL Eosinophils # 0.1 (0-0.7) k/uL Basophils # 0.0 (0-0.2) k/uL PT 11.1 (9.0-12.0) sec INR 1.0 (<1.2) APTT 27.2 (22.0-30.0) sec Sodium (137-145) mmol/L Potassium (3.5-5.1) mmol/L Chloride (98-107) mmol/L Carbon Dioxide (22-30) mmol/L Anion Gap mmol/L BUN (9-20) mg/dL Creatinine (0.66-1.25) mg/dL Est GFR (CKD-EPI)AfAm (>60 ml/min/1.73 sqM) Est GFR (CKD-EPI)NonAf (>60 ml/min/1.73 sqM) Glucose (74-99) mg/dL Plasma Lactic Acid Jareth (0.7-2.0) mmol/L Calcium (8.4-10.2) mg/dL Phosphorus (2.5-4.5) mg/dL Magnesium (1.6-2.3) mg/dL Total Bilirubin (0.2-1.3) mg/dL AST (17-59) U/L ALT (4-49) U/L Alkaline Phosphatase (38-126) U/L Creatine Kinase (55-170) U/L Troponin I (0.000-0.034) ng/mL Total Protein (6.3-8.2) g/dL Albumin (3.5-5.0) g/dL TSH (0.465-4.680) mIU/L Free T4 (0.78-2.19) ng/dL Free T3 pg/mL (2.8-5.3) pg/ml Urine Color Light Yellow Urine Appearance Cloudy (Clear) Urine pH 7.5 (5.0-8.0) Ur Specific [place] 1.010 (1.001-1.035) Urine Protein Trace H (Negative) Urine Glucose (UA) Negative (Negative) Urine Ketones Negative (Negative) Urine Blood Small H (Negative) Urine Nitrite Negative (Negative) Urine Bilirubin Negative (Negative) Urine Urobilinogen <2.0 (<2.0) mg/dL Ur Leukocyte Esterase Large H (Negative) Urine RBC 30 H (0-5) /hpf Urine WBC 37 H (0-5) /hpf Urine WBC Clumps Few H (None) /hpf Urine Bacteria Occasional H (None) /hpf Urine Mucus Few H (None) /hpf Urine Yeast (Budding) Many H (None) /hpf 02/27/22 02/27/22 02/27/22 Range/Units 13:11 13:11 13:11 WBC (3.8-10.6) k/uL RBC (4.30-5.90) m/uL Hgb (13.0-17.5) gm/dL Hct (39.0-53.0) % MCV (80.0-100.0) fL MCH (25.0-35.0) pg MCHC (31.0-37.0) g/dL RDW (11.5-15.5) % Plt Count (150-450) k/uL MPV Neutrophils % % Lymphocytes % % Monocytes % % Eosinophils % % Basophils % % Neutrophils # (1.3-7.7) k/uL Lymphocytes # (1.0-4.8) k/uL Monocytes # (0-1.0) k/uL Eosinophils # (0-0.7) k/uL Basophils # (0-0.2) k/uL PT (9.0-12.0) sec INR (<1.2) APTT (22.0-30.0) sec Sodium 131 L (137-145) mmol/L Potassium 4.6 (3.5-5.1) mmol/L Chloride 93 L (98-107) mmol/L Carbon Dioxide 28 (22-30) mmol/L Anion Gap 10 mmol/L BUN 12 (9-20) mg/dL Creatinine 0.52 L (0.66-1.25) mg/dL Est GFR (CKD-EPI)AfAm >90 (>60 ml/min/1.73 sqM) Est GFR (CKD-EPI)NonAf >90 (>60 ml/min/1.73 sqM) Glucose 95 (74-99) mg/dL Plasma Lactic Acid Jareth 1.2 (0.7-2.0) mmol/L Calcium 9.1 (8.4-10.2) mg/dL Phosphorus 4.1 (2.5-4.5) mg/dL Magnesium 2.1 (1.6-2.3) mg/dL Total Bilirubin 0.7 (0.2-1.3) mg/dL AST 22 (17-59) U/L ALT 18 (4-49) U/L Alkaline Phosphatase 126 (38-126) U/L Creatine Kinase 41 L (55-170) U/L Troponin I <0.012 (0.000-0.034) ng/mL Total Protein 6.8 (6.3-8.2) g/dL Albumin 3.8 (3.5-5.0) g/dL TSH 1.690 (0.465-4.680) mIU/L Free T4 1.37 (0.78-2.19) ng/dL Free T3 pg/mL 3.4 (2.8-5.3) pg/ml Urine Color Urine Appearance (Clear) Urine pH (5.0-8.0) Ur Specific [place] (1.001-1.035) Urine Protein (Negative) Urine Glucose (UA) (Negative) Urine Ketones (Negative) Urine Blood (Negative) Urine Nitrite (Negative) Urine Bilirubin (Negative) Urine Urobilinogen (<2.0) mg/dL Ur Leukocyte Esterase (Negative) Urine RBC (0-5) /hpf Urine WBC (0-5) /hpf Urine WBC Clumps (None) /hpf Urine Bacteria (None) /hpf Urine Mucus (None) /hpf Urine Yeast (Budding) (None) /hpf - Radiology Data Radiology results: image reviewed (Chest x-ray reveals no acute process) Disposition Clinical Impression: Urinary tract infection, Sacral ulcer, Weakness Disposition: ADMITTED IP TO THIS HOSP Is patient prescribed a controlled substance at d/c from ED?: No Referrals: Curry Nair MD [Primary Care Provider] - 1-2 days Time of Disposition: 15:12
[2022-02-27 13:28] LABS: Basophils % (A) 0 %; Eosinophils # (A) 0.1 k/uL (0-0.7); Eosinophils % (A) 1 %; Lymphocytes % (A) 10 %; MCH 32.8 pg (25.0-35.0); MCV 93.8 fL (80.0-100.0); Mean Platelet Volume 8.1; Monocytes # (A) 0.6 k/uL (0-1.0); Monocytes % (A) 6 %; Neutrophils % (A) 81 %; Platelet Count 311 k/uL (150-450); RBC 4.27 m/uL (4.30-5.90); RDW 12.3 % (11.5-15.5)
--- NOTE | 2022-02-27 13:34 | XR ---
EXAMINATION TYPE: XR chest 2V DATE OF EXAM: 02/27/2022 COMPARISON: Chest x-ray 09/23/2021, CT 09/06/2017 HISTORY: Weakness and urinary tract infection TECHNIQUE: Frontal and lateral views of the chest are obtained. FINDINGS: There is no focal air space opacity, pleural effusion, or pneumothorax seen. The cardiac silhouette size is within normal limits. The patient is post median sternotomy. There is thoracic spo ndylosis. Elevation of right hemidiaphragm is chronic. The aorta is dense and tortuous. The osseous structures are intact. Retrocardiac density is consistent with hiatal hernia and partial intrathoraci c stomach. IMPRESSION: No acute cardiopulmonary process.
[2022-02-27 13:39] LABS: Partial Thromboplastin Time 27.2 sec (22.0-30.0); Prothrombin Time 11.1 sec (9.0-12.0)
[2022-02-27 13:41] LABS: ALT 18 U/L (4-49); AST 22 U/L (17-59); African American GFR (CKD) >90 (>60 ml/min/1.73 sqM); Albumin 3.8 g/dL (3.5-5.0); Alkaline Phosphatase 126 U/L (38-126); Anion Gap 10 mmol/L; Blood Urea Nitrogen 12 mg/dL (9-20); Calcium 9.1 mg/dL (8.4-10.2); Carbon Dioxide 28 mmol/L (22-30); Chloride 93 mmol/L (98-107); Creatine Kinase 41 U/L (55-170); Glucose 95 mg/dL (74-99); Magnesium 2.1 mg/dL (1.6-2.3); Non-African American GFR(CKD) >90 (>60 ml/min/1.73 sqM); Phosphorus 4.1 mg/dL (2.5-4.5); Potassium 4.6 mmol/L (3.5-5.1); Sodium 131 mmol/L (137-145); Total Bilirubin 0.7 mg/dL (0.2-1.3); Total Protein 6.8 g/dL (6.3-8.2)
[2022-02-27 13:55] LABS: Appearance,Urine Cloudy (Clear); Bacteria,Urine Occasional /hpf; Bilirubin,Urine Negative (Negative); Blood,Urine Small (Negative); Budding Yeast,Urine Many /hpf; Color,Urine Light Yellow; Glucose,Urine (UA) Negative (Negative); Ketones,Urine Negative (Negative); Leukocyte Esterase,Urine Large (Negative); Mucus,Urine Few /hpf; Nitrite,Urine Negative (Negative); PH, Urine 7.5 (5.0-8.0); Protein,Urine Trace (Negative); RBC,Urine 30 /hpf (0-5); Urobilinogen,Urine <2.0 mg/dL (<2.0); WBC,Urine 37 /hpf (0-5)
[2022-02-27 13:59] LABS: T4, Free (Free Thyroxine) 1.37 ng/dL (0.78-2.19)
[2022-02-27] MEDS ORDERED: ACETAMINOPHEN TAB 325 MG TAB PO PRN (15:13)
[2022-02-27] MEDS ORDERED: NALOXONE 0.4 MG/ML 1 ML VIAL IV PRN (15:13)
[2022-02-27] MEDS: SODIUM CHLORIDE 0.9% 1,000 ML IV SCH (16:11)
--- NOTE | 2022-02-28 03:27 | P.HPIM ---
History of Present Illness H&P Date: 02/27/22 Chief Complaint: Sacral ulcer and weakness Patient is a 81-year-old male with a known history of hypertension, hyperlipidemia, coronary artery disease history of CABG, chronic urinary retention status post Vences cath placement and prior history of urinary tract infection was brought to the hospital by his family for concern of sacral wound and unable to take care of himself. Patient did have a recent urinary tract infection. Patient also having trouble getting out of the bed and moving and ambulate. Patient is able to walk with walker previously. Patient is currently developing sacral wound which is worsening as per family. Otherwise patient denies any complaints of chest pain or shortness of. No nausea vomiting abdominal pain or diarrhea. No headache or dizziness or lightheadedness. No cough or sputum production. Chest x-ray showed no acute cardiopulmonary process EKG showed sinus rhythm with marked sinus arrhythmia. Laboratory data showed WBC 10.0 hemoglobin 14.0 and platelets 311 Sodium 131 potassium 4.6 chloride 93 bicarbonate 28 BUN 12 and creatinine 0.52 and liver enzymes are not elevated TSH and free T4 levels within normal limits. Urinalysis showed small blood large leukocyte esterase with elevated RBCs and WBCs. Review of Systems Constitutional: Patient denies any fever or chills . no Generalized weakness. Abdomen: Patient denied any nausea or vomiting or abd. pain Cardiovascular: Patient denies any chest pain or short of breath no palpitations. Respiratory: patient denied any cough . no sputum production. No shortness of breath Neurologic: Patient denied any numbness or tingling headache. Musculoskeletal: Patient denies any complaints of joint swelling or deformity. Skin: sacral ulcer Psychiatric: Negative Endocrine: No heat or cold intolerance. No recent weight gain. Genitourinary: No dysuria or hematuria. All other 14 point ROS negative except the above Past Medical History Past Medical History: Coronary Artery Disease (CAD), Chest Pain / Angina, GE RD/Reflux, Hyperlipidemia, Hypertension History of Any Multi-Drug Resistant Organisms: None Reported Past Surgical History: Coronary Bypass/CABG Additional Past Surgical History / Comment(s): Open heart Past Psychological History: No Psychological Hx Reported Smoking Status: Never smoker Past Alcohol Use History: None Reported Past Drug Use History: None Reported Medications and Allergies Home Medications Medication Instructions Recorded Confirmed Type Aspirin 81 mg PO DAILY 12/13/14 02/27/22 History Simvastatin 20 mg PO HS 12/13/14 02/27/22 History amLODIPine [Norvasc] 5 mg PO BID 12/13/14 02/27/22 History Tamsulosin [Flomax] 0.4 mg PO DAILY 12/05/18 02/27/22 History hydroCHLOROthiazide [Hydrodiuril] 25 mg PO DAILY 12/05/18 02/27/22 History Finasteride [Proscar] 5 mg PO DAILY 09/23/21 02/27/22 History Allergies Allergy/AdvReac Type Severity Reaction Status Date / Time No Known Allergies Allergy Verified 02/27/22 12:43 Physical Exam Vitals: Vital Signs Temp Pulse Resp BP Pulse Ox 02/27/22 15:50 62 16 152/87 97 02/27/22 12:40 98.3 F 83 18 135/71 97 Intake and Output 02/27/22 02/27/22 02/27/22 06:59 14:59 22:59 Other: Voiding Method Indwelling Catheter Weight 72.575 kg PHYSICAL EXAMINATION: Patient is lying in the bed comfortably, no acute distress, awake alert and oriented.. HEENT: Normocephalic. Neck is supple. Pupils reactive. Nostrils clear. Oral cavity is moist. Neck reveals no JVD, carotid bruits, or thyromegaly. CHEST EXAMINATION: Trachea is central. Symmetrical expansion. Lung morales clear to auscultation and percussion. CARDIAC: Normal S1, S2 with no gallops. No murmurs ABDOMEN: Soft. Bowel sounds present. Nontender. No organomegaly. No abdominal bruits. Extremities: reveal no edema. No clubbing or cyanosis Neurologically awake, alert, oriented x2-3 with well-coordinated movements. No focal deficits noted Skin: Sacral ulcer, approximately 3 cm diameter, stage II almost 3. There is some surrounding erythema. Psychiatric: Coperative. Nonsuicidal, Musculoskeletal: No joint swelling or deformity. Normal range of motion. Results CBC & Chem 7: 02/27/22 13:11 02/27/22 13:11 Labs: Abnormal Lab Results - Last 24 Hours (Table) 02/27/22 02/27/22 02/27/22 Range/Units 13:11 13:11 13:11 RBC 4.27 L (4.30-5.90) m/uL Neutrophils # 8.0 H (1.3-7.7) k/uL Sodium 131 L (137-145) mmol/L Chloride 93 L (98-107) mmol/L Creatinine 0.52 L (0.66-1.25) mg/dL Creatine Kinase 41 L (55-170) U/L Urine Protein Trace H (Negative) Urine Blood Small H (Negative) Ur Leukocyte Esterase Large H (Negative) Urine RBC 30 H (0-5) /hpf Urine WBC 37 H (0-5) /hpf Urine WBC Clumps Few H (None) /hpf Urine Bacteria Occasional H (None) /hpf Urine Mucus Few H (None) /hpf Urine Yeast (Budding) Many H (None) /hpf Microbiology - Last 24 Hours (Table) 02/27/22 13:11 Wound Culture - Preliminary Buttock 02/27/22 13:11 Urine Culture - Preliminary Urine,Clean Catch Assessment and Plan Assessment: Generalized weakness and medical debility Possible acute urinary tract infection likely related to chronic indwelling Fo maya catheter. Stage II sacral decubitus ulcer Hypertension Hyperlipidemia History of coronary artery bypass graft Osteoarthritis GERD BPH DVT prophylaxis with heparin subcu Plan: Patient will be continued on IV hydration with normal saline and monitor respiratory status closely. Currently with ceftriaxone and follow-up urine culture report. continue with wound care. Current home medications and PT OT will be consulted. Possible discharge to rehab. Discussed with his daughter at bedside in detail. Time with Patient: Greater than 30
[2022-02-28] MEDS: SODIUM CHLORIDE 0.9% 1,000 ML IV SCH ×2 (05:27→15:53)
[2022-02-28] MEDS: FINASTERIDE 5 MG TAB PO SCH (08:30)
[2022-02-28] MEDS: TAMSULOSIN 0.4 MG CAP.ER.24H PO SCH (08:30)
[2022-02-28] MEDS: amLODIPine 5 MG TAB PO SCH ×2 (08:30→20:11)
[2022-02-28] MEDS: ASPIRIN 81 MG PO SCH (08:30)
[2022-02-28] MEDS: ATORVASTATIN 20 MG TAB PO SCH (20:11)
[2022-03-01] MEDS: SODIUM CHLORIDE 0.9% 1,000 ML IV SCH ×2 (03:40→20:18)
--- NOTE | 2022-03-01 06:05 | PN ---
PROGRESS NOTE SUBJECTIVE: This is an 81-year-old gentleman who was admitted with acute UTI, also had a sacral decubitus ulcer. The patient was also apparently living at home with his mother. The patient currently continues to be confused. PAST MEDICAL HISTORY: Reviewed. REVIEW OF SYSTEMS: Could not be taken. CURRENT MEDICATIONS: Reviewed include, 1. Aspirin. 2. Norvasc. 3. Tylenol. 4. Rocephin. REVIEW OF SYSTEMS: A 14-point review is negative except as mentioned earlier. PHYSICAL EXAMINATION: VITAL SIGNS: Pulse is 65, blood pressure 130/87, respirations 16 HEENT: Conjunctivae normal. NECK: No JVD. CARDIOVASCULAR: S1, S2. RESPIRATIONS: Breath sounds diminished at the bases. A few scattered rhonchi. ABDOMEN: Soft. NERVOUS SYSTEM: Diffusely weak. LABORATORY DATA: At this time shows WBC 10. Rest of the labs are noted. ASSESSMENT: 1. Generalized weakness and debility. 2. Acute urinary tract infection, present on admission related to chronic indwelling Vences catheter. 3. Stage II sacral decubitus ulcer. 4. Poor social support. 5. Hypertension. 6. Hyperlipidemia. 7. Multiple medical issues. RECOMMENDATIONS: Recommend to continue current management and symptomatic treatment. Continue with antibiotics. Recommend Infectious Disease evaluation. PT, OT evaluation. Obtain the cultures. Prognosis guarded because of multiple complex medical issues. See orders for further details. Blind Installer and discharge planning team to consult. Further recommendations to follow. MMODL / IJN: [id number] /
[2022-03-01] MEDS ORDERED: VANCOMYCIN IV PER PHARMACY 1 EACH MISC MISCELLANE PRN (07:00)
--- NOTE | 2022-03-01 07:00 | P.CONS ---
History of Present Illness - Reason for Consult Consult date: 02/28/22 UTI and sacral pressure ulcer Requesting physician: Jade Junior - Chief Complaint Weakness and nonhealing ulcer x days - History of Present Illness Patient is a 81-year-old male presenting to the ER yesterday afternoon for evaluation of nonhealing wound to the sacral ,patient apparently mentioned he did have a fall about a week or 2 ago and the patient has not been able to get up and around subsequent developing sores to the sacral area, patient complaining of pain to the sacral wound area more of a dull aching to sharp unable to quantify it further , denies any drainage from it patient on presentation to the hospital was afebrile subsequently have low-grade fever of 99.3 patient did have a normal white count creatinine has been normal liver enzymes are normal patient did have a positive UA cultures obtained from the sacral, patient is currently being treated with a Rocephin infectious he was consulted for further management of antibiotic therapy and local wound care Review of Systems Positive point has been mentioned in the HPI rest of the systems are negative Past Medical History Past Medical History: Coronary Artery Disease (CAD), Chest Pain / Angina, CVA/TIA, GERD/Reflux, Hyperlipidemia, Hypertension, Myocardial Infarction ([place]), Osteoarthritis (OA), Prostate Disorder Additional Past Medical History / Comment(s): 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 Last Myocardial Infarction Date:: 1996 History of Any Multi-Drug Resistant Organisms: None Reported Past Surgical History: Back Surgery, Coronary Bypass/CABG, Heart Catheterization Additional Past Surgical History / Comment(s): 1996 CABG 5 vessel, colonoscopy. Past Anesthesia/Blood Transfusion Reactions: No Reported Reaction Smoking Status: Never smoker - Past Family History Mother Family Medical History: Coronary Artery Disease (CAD) Additional Family Medical History / Comment(s): CABG Father History Unknown: Yes Additional Family Medical History / Comment(s): Father never went to the doctor. Medications and Allergies Home Medications Medication Instructions Recorded Confirmed Type Aspirin 81 mg PO DAILY 12/13/14 02/27/22 History Simvastatin 20 mg PO HS 12/13/14 02/27/22 History amLODIPine [Norvasc] 5 mg PO BID 12/13/14 02/27/22 History Tamsulosin [Flomax] 0.4 mg PO DAILY 12/05/18 02/27/22 History Finasteride [Proscar] 5 mg PO DAILY 09/23/21 02/27/22 History Acetaminophen Tab [Tylenol] 650 mg PO Q6HR PRN tab 03/03/22 Rx Cefepime [Maxipime] 2 gm IVPB Q8H 14 Days #42 each 03/03/22 Rx Heparin Sodium,Porcine [Heparin 5,000 unit SQ Q12HR 30 Days #60 03/03/22 Rx Sodium] each Vancomycin 1,250 mg IVPB Q12HR 14 Days #28 03/03/22 Rx each Allergies Allergy/AdvReac Type Severity Reaction Status Date / Time No Known Allergies Allergy Verified 02/27/22 12:43 Physical Exam Vitals: Vital Signs Temp Pulse Pulse Resp BP BP Pulse Ox 02/28/22 14:06 97.9 F 59 L 16 116/43 98 02/28/22 10:00 63 18 165/76 97 02/28/22 07:38 65 18 96 02/28/22 05:28 58 L 16 138/70 98 Intake and Output 02/28/22 02/28/22 02/28/22 06:59 14:59 22:59 Output Total 450 Balance -450 Output: Urine 450 Other: Weight 72.575 kg GENERAL DESCRIPTION: Elderly male lying in bed, no distress. No tachypnea or accessory muscle of respiration use. HEENT: Shows Pallor , no scleral icterus. Oral mucous membrane is dry. No pharyngeal erythema or thrush NECK: Trachea central, no thyromegaly. LUNGS: Unlabored breathing. Clear to auscultation anteriorly. No wheeze or crackle. HEART: S1, S2, regular rate and rhythm. No loud murmur ABDOMEN: Soft, no tenderness , guarding or rigidity, no organomegaly EXTREMITIES: No edema of feet. SKIN: No rash, no masses palpable. Patient did have a stage II sacral ulcer minimal slough tissue no significant surrounding redness or drainage NEUROLOGICAL: The patient is awake, alert, oriented x3, mood and affect normal. Results CBC & Chem 7: 02/27/22 13:11 03/03/22 08:50 Labs: Microbiology - Last 24 Hours (Table) 02/27/22 13:11 Urine Culture - Preliminary Urine,Clean Catch Gram Neg Bacilli 02/27/22 13:11 Gram Stain - Preliminary Buttock Wound Culture - Preliminary Gram Neg Bacilli Presumptive MRSA Assessment and Plan (1) Sacral ulcer Status: Acute Code(s): L98.429 - NON-PRESSURE CHRONIC ULCER OF BACK WITH UNSPECIFIED SEVERITY SNOMED Code(s): 31541443 (2) Urinary tract infection Status: Acute Code(s): N39.0 - URINARY TRACT INFECTION, SITE NOT SPECIFIED SNOMED Code(s): 32118880 Plan: 1patient with a stage II sacral pressure ulcer with evidence of some slough tissue but no significant surrounding redness recommend local wound care with the [facility]. 2patient with a positive UA possible component of gram-negative urinary tract infection in this patient not a very good historian as far as his urinary symptoms are concerned. 3Rocephin 1 g daily to continue. 4local wound care with [facility] followed by moist dressing change daily and keep the area of the pressure. We will follow on clinical condition and cultures to further adjust medication if needed Thank you for this consultation will follow this patient along with you Time with Patient: Greater than 30
[2022-03-01] MEDS ORDERED: VANCOMYCIN 1,250 MG in SODIUM CHLORIDE 0.9% 250 ML IVPB ONE (08:00)
[2022-03-01 08:01] LABS: African American GFR (CKD) >90 (>60 ml/min/1.73 sqM); Anion Gap 4 mmol/L; Blood Urea Nitrogen 9 mg/dL (9-20); Calcium 8.2 mg/dL (8.4-10.2); Carbon Dioxide 30 mmol/L (22-30); Chloride 98 mmol/L (98-107); Glucose 89 mg/dL (74-99); Non-African American GFR(CKD) >90 (>60 ml/min/1.73 sqM); Sodium 132 mmol/L (137-145)
[2022-03-01] MEDS: FINASTERIDE 5 MG TAB PO SCH (08:29)
[2022-03-01] MEDS: amLODIPine 5 MG TAB PO SCH ×2 (08:29→20:18)
[2022-03-01] MEDS: ASPIRIN 81 MG PO SCH (08:29)
[2022-03-01] MEDS: TAMSULOSIN 0.4 MG CAP.ER.24H PO SCH (08:29)
[2022-03-01] MEDS: CEFEPIME 2 GM in SODIUM CHLORIDE 0.9% 100 ML IVPB SCH ×2 (11:55→20:18)
[2022-03-01 13:35] VITALS: BMI 22.9
[2022-03-01] MEDS: ATORVASTATIN 20 MG TAB PO SCH (20:18)
[2022-03-01] MEDS: VANCOMYCIN 1,250 MG in SODIUM CHLORIDE 0.9% 250 ML IVPB SCH (20:18)
[2022-03-02] MEDS: CEFEPIME 2 GM in SODIUM CHLORIDE 0.9% 100 ML IVPB SCH ×3 (03:05→21:48)
[2022-03-02 05:34] LABS: African American GFR (CKD) >90 (>60 ml/min/1.73 sqM); Non-African American GFR(CKD) >90 (>60 ml/min/1.73 sqM)
[2022-03-02] MEDS: VANCOMYCIN 1,250 MG in SODIUM CHLORIDE 0.9% 250 ML IVPB SCH ×2 (08:29→21:48)
[2022-03-02] MEDS: TAMSULOSIN 0.4 MG CAP.ER.24H PO SCH (08:29)
[2022-03-02] MEDS: FINASTERIDE 5 MG TAB PO SCH (08:30)
[2022-03-02] MEDS: amLODIPine 5 MG TAB PO SCH ×2 (08:30→21:48)
[2022-03-02] MEDS: ASPIRIN 81 MG PO SCH (08:30)
[2022-03-02] MEDS: SODIUM CHLORIDE 0.9% 1,000 ML IV SCH ×2 (11:06→21:50)
--- NOTE | 2022-03-02 12:09 | PN ---
PROGRESS NOTE DATE OF SERVICE: 03/01/2022 SUBJECTIVE: This 81-year-old gentleman, who was admitted with generalized weakness and debility as well as UTI. No chest pain. No palpitations. No fever. OBJECTIVE: VITAL SIGNS: Pulse is 64, blood pressure ntd, respirations 18. CHEST: Clear to auscultation. ABDOMEN: Soft. NERVOUS SYSTEM: Diffusely weak. LABORATORY DATA: Reviewed. ASSESSMENT: 1. Generalized weakness and debility. 2. Acute urinary tract infection, present on admission, related to chronic indwelling Vences catheter. 3. Stage II sacral decubitus ulcer. 4. Poor social support. 5. Hypertension. 6. Gait dysfunction. 7. Hyperlipidemia. 8. Multiple medical issues. 9. Urinary tract infection with gram-negative bacilli and Pseudomonas aeruginosa, and wound culture with Pseudomonas and methicillin-resistant Staphylococcus aureus. RECOMMENDATIONS: I recommend to continue current medications, continue symptomatic treatment. Continue with antibiotics. Urine culture showed gram-negative bacilli and Pseudomonas aeruginosa. Wound culture showed Pseudomonas and MRSA. Dr. Dominguez is following the patient closely. Prognosis guarded. PT/OT evaluation. Possible ECF rehab. Further recommendations to follow. MMODL / IJN: [id number] / KYA
[2022-03-02] MEDS ORDERED: LIDOCAINE 1% INJ 10MG/ML (30 ML VIAL-PF) SQ ONE (15:02)
--- NOTE | 2022-03-02 15:55 | IR ---
PICC LINE PLACEMENT: HISTORY: Infection requiring long-term antibiotic therapy PROCEDURE: Ultrasound and fluoroscopic guidance of PICC line placement. COMPLICATIONS: None ANESTHESIA: 1. 1% Lidocaine locally. FINDINGS/TECHNIQUE: The procedure was explained to the patient. The risks, complications, benefits and alternatives were discussed and any questions were answered. Informed consent was obtained. The patient was placed supine on the fluoroscopic table and prepped and draped in the usual sterile fash ion. Utilizing a 21 gauge needle and sonographic and fluoroscopic guidance, access in the left basi lic vein was achieved and there is placement of a 0.018 guidewire. The vein is patent. A 4-F sheath was placed over the guidewire. The guidewire and dilator were removed and a 4-F. PICC line was plac ed through the sheath with the tip at the level of the SVC. The sheath was removed, the catheter was flushed and sutured into position. The patient was stable throughout the procedure and remained sta ble upon discharge from the Department of Radiology. The vein puncture was patent under ultrasound. A collins scale image was obtained to document patency of the vein punctured. All elements of the maximal barrier technique were utilized. FLUOROSCOPY TIME: 0.2 minutes and 1 images submitted IMPRESSION: Successful PICC line placement under ultrasound and fluoroscopic guidance.
[2022-03-02] MEDS: ATORVASTATIN 20 MG TAB PO SCH (21:48)
[2022-03-03] MEDS: CEFEPIME 2 GM in SODIUM CHLORIDE 0.9% 100 ML IVPB SCH ×2 (04:41→13:09)
--- NOTE | 2022-03-03 06:38 | P.PN ---
Subjective Progress Note Date: 03/02/22 Patient is a 81-year-old male with a known history of hypertension, hyperlipidemia, coronary artery disease history of CABG, chronic urinary retention status post Vences cath placement and prior history of urinary tract infection was brought to the hospital by his family for concern of sacral wound and unable to take care of himself. Patient did have a recent urinary tract infection. Patient also having trouble getting out of the bed and moving and ambulate. Patient is able to walk with walker previously. Patient is currently developing sacral wound which is worsening as per family. Otherwise patient denies any complaints of chest pain or shortness of. No nausea vomiting abdominal pain or diarrhea. No headache or dizziness or lightheadedness. No cough or sputum production. Chest x-ray showed no acute cardiopulmonary process EKG showed sinus rhythm with marked sinus arrhythmia. Laboratory data showed WBC 10.0 hemoglobin 14.0 and platelets 311 Sodium 131 potassium 4.6 chloride 93 bicarbonate 28 BUN 12 and creatinine 0.52 and liver enzymes are not elevated TSH and free T4 levels within normal limits. Urinalysis showed small blood large leukocyte esterase with elevated RBCs and WBCs. 03/02/2022 Patient is seen and evaluated in follow-up this morning currently maintained on IV antibiotics with preliminary urine culture showing gram-negative bacilli along with pseudomonas aeruginosa and wound culture from the buttock showing MRSA with pseudomonas aeruginosa and ID is following. Plan is for PICC line as patient will require IV antibiotic outpatient. Patient also continues with weakness and PT/OT therapy recommending ECF. Case/social work following working on ECF. Patient is afebrile denies chest pain or shortness of breath. Patient is tolerating diet with no reports of nausea or vomiting noted. Review of systems: Constitutional: No reports of fatigue, fever, or chills Cardiovascular: No reports of chest pain or palpitations Respiratory: No reports of shortness of breath or cough GI: No reports of nausea, vomiting, or diarrhea : No reports of dysuria or retention Neurovascular: No reports of weakness or numbness All medications have been reviewed Active Medications Acetaminophen (Acetaminophen Tab 325 Mg Tab) 650 mg PO Q6HR PRN PRN Reason: Mild Pain or Fever > 100.5 Last Admin: 03/01/22 20:18 Dose: 650 mg Amlodipine Besylate (Amlodipine 5 Mg Tab) 5 mg PO BID KEVIN Last Admin: 03/02/22 08:30 Dose: 5 mg Aspirin (Aspirin 81 Mg) 81 mg PO DAILY [facility] Last Admin: 03/02/22 08:30 Dose: 81 mg Atorvastatin Calcium (Atorvastatin 20 Mg Tab) 20 mg PO HS [facility] Last Admin: 03/01/22 20:18 Dose: 20 mg Finasteride (Finasteride 5 Mg Tab) 5 mg PO DAILY [facility] Last Admin: 03/02/22 08:30 Dose: 5 mg Sodium Chloride (Saline 0.9%) 1,000 mls @ 75 mls/hr IV .[id number] [facility] Last Admin: 03/02/22 11:06 Dose: Not Given Vancomycin HCl 1,250 mg/ (Sodium Chloride) 250 mls @ 125 mls/hr IVPB Q12HR [facility] Last Admin: 03/02/22 08:29 Dose: 125 mls/hr Cefepime HCl 2 gm/ Sodium (Chloride) 100 mls @ 25 mls/hr IVPB Q8H [facility]; Protocol Last Admin: 03/02/22 11:51 Dose: 25 mls/hr Miscellaneous Information (Vancomycin Trough Due 1 Each Misc) 0 each MISCELLANE DIRECTED ONE Stop: 03/03/22 08:01 Naloxone HCl (Naloxone 0.4 Mg/Ml 1 Ml Vial) 0.2 mg IV Q2M PRN PRN Reason: Opioid Reversal Tamsulosin HCl (Tamsulosin 0.4 Mg Cap.Er.24h) 0.4 mg PO DAILY [facility] Last Admin: 03/02/22 08:29 Dose: 0.4 mg Physical exam: Patient is lying in the bed, awake alert and oriented.. HEENT: Normocephalic. Neck is supple. Pupils reactive. Nostrils clear. Oral cavity is moist. Neck reveals no JVD, carotid bruits, or thyromegaly. CHEST EXAMINATION: Trachea is central. Symmetrical expansion. Lung morales diminished with no wheezing or rhonchi noted CARDIAC: S1, S2 muffled ABDOMEN: Soft. Bowel sounds present. Nontender. No organomegaly. No abdominal bruits. Extremities: reveal no edema. No clubbing or cyanosis Neurologically awake, alert, oriented x2-3 with well-coordinated movements. No focal deficits noted. diffuse weakness Skin: Sacral ulcer, approximately 3 cm diameter, stage II almost 3. There is some surrounding erythema. Psychiatric: Cooperative. Nonsuicidal Musculoskeletal: No joint swelling or deformity. Normal range of motion. Assessment: Generalized weakness and medical debility acute urinary tract infection likely related to chronic indwelling Vences catheter. Stage II sacral decubitus ulcer Hypertension Hyperlipidemia History of coronary artery bypass graft Osteoarthritis GERD BPH DVT prophylaxis with heparin subcu Plan: Patient will be continued on IV hydration with normal saline and monitor r espiratory status closely. Currently with IV abx with ID following and scheduled to receive a picc line as there is MRSA in the sacral wound and pseudomonas in the urine. continue with wound care. PT/OT following and recommending ecf on discharge. Case management following and working on accepting ecf. Need to discuss with ID about duration of abx. Due to multiple complex medical issues, prognosis is guarded. Possible discharge in 24 hours. The impression and plan of care has been dictated by Jade Junior, Nurse Practitioner as directed. Dr. Domingo MD I have performed a history and examination and MDM of this patient, discussed the same with the dictator, and agree with the dictator's assessment and plan as written ,documented as a scribe. Based on total visit time, I have performed more than 50% of the visit. Objective - Vital Signs Vital signs: Vital Signs Temp 98.1 F 03/02/22 14:26 Pulse 69 03/02/22 14:26 Resp 14 03/02/22 14:26 BP 130/65 03/02/22 14:26 Pulse Ox 98 03/02/22 14:26 FiO2 Intake & Output 03/01/22 03/02/22 03/02/22 18:59 06:59 18:59 Intake Total 240 600 Output Total 2099 2074 1599 Balance -2099 Weight 72.575 kg Intake: Oral 240 600 Output: Urine 2099 2074 1599 Other: Voiding Method Indwelling Catheter Indwelling Catheter Indwelling Catheter # Bowel Movements 1 1 - Labs CBC & Chem 7: 02/27/22 13:11 03/02/22 04:50 Labs: Abnormal Lab Results - Last 24 Hours (Table) 03/02/22 Range/Units 04:50 Creatinine 0.51 L (0.66-1.25) mg/dL
--- NOTE | 2022-03-03 07:24 | P.PN ---
Subjective Progress Note Date: 03/01/22 Principal diagnosis: UTI and sacral pressure ulcer Patient is 81-year-old male presented to hospital for evaluation of a nonhealing wound to the sacral area and this patient with recent history of fall also have a positive UA concerning for a symptomatic urinary tract infection. On today's evaluation that is 03/01/2022, the patient denies having any fever or chills, he is feeling slightly better pain to the sacral wound is slightly decreased no chest pain shortness of breath or cough no abdominal pain no diarrhea Objective - Vital Signs Vital signs: Vital Signs Temp 98.2 F 03/01/22 10:11 Pulse 64 03/01/22 10:11 Resp 16 03/01/22 10:11 BP 139/71 03/01/22 10:11 Pulse Ox 97 03/01/22 10:11 FiO2 Intake & Output 02/28/22 03/01/22 03/01/22 18:59 06:59 18:59 Intake Total 900 Output Total 450 2250 950 Balance 450 -2250 -950 Weight 72.575 kg Intake: Intake, IV Titration 900 Amount Sodium Chloride 0.9% 1, 900 000 ml @ 75 mls/hr IV . [id number] [facility] Rx#:[id number] Output: Urine 450 2250 950 Other: Voiding Method Indwelling Catheter Indwelling Catheter Indwelling Catheter - Exam GENERAL DESCRIPTION: An elderly male lying in bed in no distress RESPIRATORY SYSTEM: Unlabored breathing , decreased breath sounds at bases HEART: S1 S2 regular rate and rhythm , ABDOMEN: Soft , no tenderness EXTREMITIES: No edema feet - Labs CBC & Chem 7: 02/27/22 13:11 03/02/22 04:50 Labs: Abnormal Lab Results - Last 24 Hours (Table) 03/01/22 Range/Units 07:21 Sodium 132 L (137-145) mmol/L Creatinine 0.56 L (0.66-1.25) mg/dL Calcium 8.2 L (8.4-10.2) mg/dL Microbiology - Last 24 Hours (Table) 02/27/22 13:11 Gram Stain - Final Buttock Wound Culture - Final Pseudomonas aeruginosa Methicillin resist S. aureus 02/27/22 13:11 Urine Culture - Preliminary Urine,Clean Catch Gram Neg Bacilli Pseudomonas aeruginosa Assessment and Plan (1) Sacral ulcer Current Visit: Yes Status: Acute Code(s): L98.429 - NON-PRESSURE CHRONIC ULCER OF BACK WITH UNSPECIFIED SEVERITY SNOMED Code(s): 09464725 (2) Urinary tract infection Current Visit: Yes Status: Acute Code(s): N39.0 - URINARY TRACT INFECTION, SITE NOT SPECIFIED SNOMED Code(s): 77186080 Plan: 1patient with a stage II sacral pressure ulcer with evidence of some slough tissue recommend local wound care with the [facility]. 2patient with a positive UA possible component of gram-negative urinary tract urine is currently showing a gram-negative 3-patient sacral wound showing presumptive MRSA and pseudomonas, patient to continue with vancomycin however switch Rocephin to cefepime
--- NOTE | 2022-03-03 07:26 | P.PN ---
Subjective Progress Note Date: 03/02/22 Principal diagnosis: UTI and sacral pressure ulcer Patient is 81-year-old male presented to hospital for evaluation of a nonhealing wound to the sacral area and this patient with recent history of fall also have a positive UA concerning for a symptomatic urinary tract infection. On today's evaluation that is 03/02/2022, the patient denies any fever or chills, the patient is breathing comfortably on room air the patient pain to the sacral wound is slightly decreased no chest pain shortness of breath or cough no abdominal pain no diarrhea Objective - Vital Signs Vital signs: Vital Signs Temp 97.7 F 03/02/22 11:20 Pulse 64 03/02/22 11:20 Resp 16 03/02/22 11:20 BP 146/63 03/02/22 11:20 Pulse Ox 97 03/02/22 11:20 FiO2 Intake & Output 03/01/22 03/02/22 03/02/22 18:59 06:59 18:59 Intake Total 240 Output Total 2099 2074 999 Balance -2099 Weight 72.575 kg Intake: Oral 240 Output: Urine 2099 2074 999 Other: Voiding Method Indwelling Catheter Indwelling Catheter Indwelling Catheter # Bowel Movements 1 1 - Exam GENERAL DESCRIPTION: An elderly male lying in bed in no distress RESPIRATORY SYSTEM: Unlabored breathing , decreased breath sounds at bases HEART: S1 S2 regular rate and rhythm , ABDOMEN: Soft , no tenderness EXTREMITIES: No edema feet - Labs CBC & Chem 7: 02/27/22 13:11 03/02/22 04:50 Labs: Abnormal Lab Results - Last 24 Hours (Table) 03/02/22 Range/Units 04:50 Creatinine 0.51 L (0.66-1.25) mg/dL Microbiology - Last 24 Hours (Table) 02/27/22 13:11 Gram Stain - Final Buttock Wound Culture - Final Pseudomonas aeruginosa Methicillin resist S. aureus 02/27/22 13:11 Urine Culture - Preliminary Urine,Clean Catch Gram Neg Bacilli Pseudomonas aeruginosa Assessment and Plan (1) Sacral ulcer Current Visit: Yes Status: Acute Code(s): L98.429 - NON-PRESSURE CHRONIC ULCER OF BACK WITH UNSPECIFIED SEVERITY SNOMED Code(s): 29887047 (2) Urinary tract infection Current Visit: Yes Status: Acute Code(s): N39.0 - URINARY TRACT INFECTION, SITE NOT SPECIFIED SNOMED Code(s): 06371702 Plan: 1patient with a stage II sacral pressure ulcer with evidence of some slough tissue [facility] 2patient with a positive UA possible component of gram-negative urinary tract urine is currently growing Pseudomonas 3-patient sacral wound showing presumptive MRSA and pseudomonas, patient to continue with vancomycin and cefepime 4-patient to get a PICC line and continue with the vancomycin and cefepime 2 weeks on discharge and close outpatient follow-up Time with Patient: Less than 30
[2022-03-03] MEDS ORDERED: VANCOMYCIN TROUGH DUE 1 EACH MISC MISCELLANE ONE (08:00)
[2022-03-03 09:28] LABS: African American GFR (CKD) >90 (>60 ml/min/1.73 sqM); Non-African American GFR(CKD) >90 (>60 ml/min/1.73 sqM)
[2022-03-03] MEDS: ASPIRIN 81 MG PO SCH (10:13)
[2022-03-03] MEDS: FINASTERIDE 5 MG TAB PO SCH (10:13)
[2022-03-03] MEDS: amLODIPine 5 MG TAB PO SCH (10:14)
[2022-03-03] MEDS: TAMSULOSIN 0.4 MG CAP.ER.24H PO SCH (10:14)
[2022-03-03] MEDS: VANCOMYCIN 1,250 MG in SODIUM CHLORIDE 0.9% 250 ML IVPB SCH (10:16)
[2022-03-03] MEDS: SODIUM CHLORIDE 0.9% 1,000 ML IV SCH (13:15)
[2022-03-03 13:30] VITALS: BP 169/80; PULSE 66; RESP 19; TEMP 98.7
--- NOTE | 2022-03-03 14:02 | P.DS ---
Providers Date of admission: 02/27/22 15:13 Expected date of discharge: 03/03/22 Attending physician: Reggie Patel Consults: 02/28/22 12:15 Consult Physician Urgent Consulting Provider: Willow Dominguez Consult Reason/Comments: uti, sacral ulcer stage 2 Do you want consulting provider notified?: Yes Primary care physician: Curry Korey [facility] Course: Final diagnosis Generalized weakness and medical debility acute urinary tract infection likely related to chronic indwelling Vences catheter. Stage II sacral decubitus ulcer with MRSA Hypertension Hyperlipidemia History of coronary artery bypass graft Osteoarthritis GERD BPH DVT prophylaxis Full code Discharge disposition Patient is being discharged in a stable condition with guarded prognosis to [facility] . Patient will follow-up with Dr. Nair in the outpatient setting upon discharge. Patient is to continue with IV antibiotics per infectious disease for the next 2 weeks with close outpatient follow-up. Total time taken is greater than 35 minutes. Hospital course This is a 81-year-old male who was recently admitted with urinary tract infection along with sacral wound ulcer that was growing MRSA and urinary tract infection with Pseudomonas and being followed by infectious disease. Patient did receive a PICC line and will be receiving cefepime and Vanco for minimum 2 weeks recommending close outpatient follow-up with Dr. Dominguez infectious disease at the wound care clinic of [facility]. Number is [phone] to contact and make an appointment. Patient was seen and evaluated by physical therapy r ecommending subacute rehab and patient along with family are agreeable. Currently no reports of chest pain, shortness of breath, or palpitations. Patient is afebrile. No reports of nausea or vomiting and patient is tolerating diet. Patient will be going to [facility] today. Guarded prognosis. Physical exam: Gen: This is a 81-year-old male awake, alert and oriented 2-3, well-developed, well-nourished. HEENT: Head is atraumatic, normocephalic. Pupils equal, round. Sclerae is anicteric. NECK: Supple. No JVD. No lymphadenopathy. No thyromegaly. LUNGS: Diminished breath sounds bilaterally with no wheezes or rhonchi. No intercostal retractions. HEART: S1, S2 are muffled ABDOMEN: Soft. Bowel sounds are present. No masses. No tenderness. EXTREMITIES: No pedal edema. No calf tenderness. NEUROLOGICAL: Patient is awake, alert and oriented x3. Cranial nerves 2 through 12 are grossly intact. Diffusely weak Please refer to medication reconciliation sheet for a list of medications. The impression and plan of care has been dictated by Jade Junior, Nurse Practitioner as directed. Dr. Domingo MD I have performed a history and examination and MDM of this patient, discussed the same with the dictator, and agree with the dictator's assessment and plan as written ,documented as a scribe. Based on total visit time, I have performed more than 50% of the visit. Patient Condition at Discharge: Fair Plan - Discharge Summary Discharge Rx Participant: No New Discharge Prescriptions: New Heparin Sodium,Porcine [Heparin Sodium] 5,000 unit SQ Q12HR 30 Days #60 each Cefepime [Maxipime] 2 gm IVPB Q8H 14 Days #42 each Acetaminophen Tab [Tylenol] 650 mg PO Q6HR PRN tab PRN Reason: Mild Pain Or Fever > 100.5 Vancomycin 1,250 mg IVPB Q12HR 14 Days #28 each Continue Aspirin 81 mg PO DAILY amLODIPine [Norvasc] 5 mg PO BID Simvastatin 20 mg PO HS Tamsulosin [Flomax] 0.4 mg PO DAILY Finasteride [Proscar] 5 mg PO DAILY Discontinued hydroCHLOROthiazide [Hydrodiuril] 25 mg PO DAILY Discharge Medication List Aspirin 81 mg PO DAILY 12/13/14 [History] Simvastatin 20 mg PO HS 12/13/14 [History] amLODIPine [Norvasc] 5 mg PO BID 12/13/14 [History] Tamsulosin [Flomax] 0.4 mg PO DAILY 12/05/18 [History] Finasteride [Proscar] 5 mg PO DAILY 09/23/21 [History] Acetaminophen Tab [Tylenol] 650 mg PO Q6HR PRN tab 03/03/22 [Rx] Cefepime [Maxipime] 2 gm IVPB Q8H 14 Days #42 each 03/03/22 [Rx] Heparin Sodium,Porcine [Heparin Sodium] 5,000 unit SQ Q12HR 30 Days #60 each 03/03/22 [Rx] Vancomycin 1,250 mg IVPB Q12HR 14 Days #28 each 03/03/22 [Rx] Follow up Appointment(s)/Referral(s): Curry Nair MD [Primary Care Provider] - 1-2 days
--- NOTE | 2022-03-10 21:32 | P.PN ---
Subjective Progress Note Date: 03/03/22 Principal diagnosis: UTI and sacral pressure ulcer Patient is 81-year-old male presented to hospital for evaluation of a nonhealing wound to the sacral area and this patient with recent history of fall also have a positive UA concerning for a symptomatic urinary tract infection. On today's evaluation that is 03/03/2022, the patient remains to be afebrile, the patient is breathing comfortably on room air, the patient pain to the sacral wound is currently controlled, the patient denies chest pain shortness of breath or cough no abdominal pain no diarrhea Objective - Vital Signs Vital signs: Vital Signs Temp 97.8 F 03/03/22 04:24 Pulse 57 L 03/03/22 04:24 Resp 18 03/03/22 04:24 BP 157/71 03/03/22 04:24 Pulse Ox 96 03/03/22 04:24 FiO2 Intake & Output 03/02/22 03/03/22 03/03/22 18:59 06:59 18:59 Intake Total 600 Output Total 2200 1999 700 Balance -1599 Intake: Oral 600 Output: Urine 2199 Other: Voiding Method Indwelling Catheter Indwelling Catheter # Bowel Movements 1 - Exam GENERAL DESCRIPTION: An elderly male lying in bed in no distress RESPIRATORY SYSTEM: Unlabored breathing , decreased breath sounds at bases HEART: S1 S2 regular rate and rhythm , ABDOMEN: Soft , no tenderness EXTREMITIES: No edema feet - Labs CBC & Chem 7: 02/27/22 13:11 03/03/22 08:50 Labs: Abnormal Lab Results - Last 24 Hours (Table) 03/03/22 Range/Units 08:50 Creatinine 0.54 L (0.66-1.25) mg/dL Assessment and Plan (1) Sacral ulcer Status: Acute Code(s): L98.429 - NON-PRESSURE CHRONIC ULCER OF BACK WITH UNSPECIFIED SEVERITY SNOMED Code(s): 72024884 (2) Urinary tract infection Status: Acute Code(s): N39.0 - URINARY TRACT INFECTION, SITE NOT SPECIFIED SNOMED Code(s): 49596747 Plan: 1-patient with a stage II sacral pressure ulcer with evidence of some slough tissue recommend local wound care with the [facility]. 2patient with a positive UA possible component of gram-negative urinary tract urine is currently growing Pseudomonas 3-patient sacral wound blowing MRSA and pseudomonas, for which patient will continue with vancomycin and cefepime 2 weeks and close outpatient follow-up
== END 2022-03-03 16:49 | DRG 700 ==
LOC: EC 11:59 → 5NMEDONC 15:13
PROVIDERS: ADMIT Internal Medicine; ATTEND Internal Medicine
PROC: 02HV33Z Insertion of Infusion Device into Superior Vena Cava, Percutaneous Approach (ICD-10-PCS; principal; 2022-03-02 09:25)
DX: T83.511A Infection and inflammatory reaction due to indwelling urethral catheter, initial encounter (principal); I10 Essential (primary) hypertension; L89.152 Pressure ulcer of sacral region, stage 2; N39.0 Urinary tract infection, site not specified; B95.62 Methicillin resistant Staphylococcus aureus infection as the cause of diseases classified elsewhere; E78.5 Hyperlipidemia, unspecified; I25.10 Atherosclerotic heart disease of native coronary artery without angina pectoris; R53.81 Other malaise; B96.5 Pseudomonas (aeruginosa) (mallei) (pseudomallei) as the cause of diseases classified elsewhere; N40.1 Benign prostatic hyperplasia with lower urinary tract symptoms; R33.8 Other retention of urine; K21.9 Gastro-esophageal reflux disease without esophagitis; B96.89 Other specified bacterial agents as the cause of diseases classified elsewhere; Y73.1 Therapeutic (nonsurgical) and rehabilitative gastroenterology and urology devices associated with adverse incidents; M17.0 Bilateral primary osteoarthritis of knee; Z60.8 Other problems related to social environment; Z91.81 History of falling; Z95.1 Presence of aortocoronary bypass graft; I25.2 Old myocardial infarction; Z86.73 Personal history of transient ischemic attack (TIA), and cerebral infarction without residual deficits; Z87.440 Personal history of urinary (tract) infections; Z79.82 Long term (current) use of aspirin; Z79.899 Other long term (current) drug therapy
CPT/HCPCS: 36415; 36573; 71046; 80048; 80053; 80202; 81001; 82550; 82565; 83605; 83735; 84100; 84439; 84443; 84481; 84484; 85025; 85610; 85730; 87070; 87077; 87086; 87186; 87205; 93005; 96365; 96366; 99285

== ENCOUNTER 2022-03-16 07:15 | Inpatient (IN) | payer MEDICARE ==
[2022-03-16 07:28] LABS: Glucose,Whole Blood 80 mg/dL (70-110)
[2022-03-16] MEDS ORDERED: SODIUM CHLORIDE 0.9% 1,000 ML IV ONE (07:39)
[2022-03-16 08:02] LABS: Basophils % (A) 1 %; Eosinophils # (A) 0.2 k/uL (0-0.7); Eosinophils % (A) 2 %; HGB 12.6 gm/dL (13.0-17.5); Lymphocytes # (A) 0.6 k/uL (1.0-4.8); Lymphocytes % (A) 7 %; MCH 32.2 pg (25.0-35.0); MCHC 34.1 g/dL (31.0-37.0); MCV 94.3 fL (80.0-100.0); Mean Platelet Volume 9.4; Monocytes # (A) 0.4 k/uL (0-1.0); Monocytes % (A) 4 %; Neutrophils % (A) 86 %; Platelet Count 179 k/uL (150-450); RBC 3.92 m/uL (4.30-5.90); RDW 12.8 % (11.5-15.5); WBC 9.4 k/uL (3.8-10.6)
[2022-03-16 08:10] LABS: INR 1.2 (<1.2); Partial Thromboplastin Time 26.3 sec (22.0-30.0); Prothrombin Time 12.5 sec (9.0-12.0)
[2022-03-16 08:28] LABS: ALT 18 U/L (4-49); AST 33 U/L (17-59); African American GFR (CKD) 27 (>60 ml/min/1.73 sqM); Alcohol <10 mg/dL; Alkaline Phosphatase 68 U/L (38-126); Anion Gap 9 mmol/L; Blood Urea Nitrogen 39 mg/dL (9-20); Carbon Dioxide 24 mmol/L (22-30); Chloride 103 mmol/L (98-107); Glucose 86 mg/dL (74-99); Lactic Acid, Venous 0.9 mmol/L (0.7-2.0); Non-African American GFR(CKD) 24 (>60 ml/min/1.73 sqM); Potassium 3.8 mmol/L (3.5-5.1); Sodium 136 mmol/L (137-145); Total Bilirubin 0.8 mg/dL (0.2-1.3); Total Protein 5.6 g/dL (6.3-8.2)
--- NOTE | 2022-03-16 08:32 | XR ---
EXAMINATION TYPE: XR chest 2V DATE OF EXAM: 03/16/2022 COMPARISON: 02/27/22 HISTORY: Shortness of breath TECHNIQUE: Frontal and lateral views of the chest are obtained. FINDINGS: Scattered senescent parenchymal changes noted. Hyperinflation compatible with COPD. No evidence for infiltrate. No evidence for atelectasis. Heart size is stable. Mediastinal structures are stable and grossly unremarkable. No evidence for hilar prominence. Degenerative changes dorsal spine. IMPRESSION: 1. No evidence for acute pulmonary disease.
--- NOTE | 2022-03-16 08:36 | CT ---
EXAMINATION TYPE: CT brain wo con DATE OF EXAM: 03/16/2022 HISTORY: ams CT DLP: 1125.4 mGycm. Automated Exposure Control for Dose Reduction was Utilized. TECHNIQUE: CT scan of the head is performed without contrast. COMPARISON: CT brain September 23, 2021. FINDINGS: There is no acute intracranial hemorrhage or midline shift identified. There is moderate diffuse ventricular and sulcal prominence consistent with diffuse cerebral atrophy. There is moderat e low-attenuation in the periventricular white matter consistent with chronic small vessel ischemic c hange. Soft tissue density consistent with cerumen seen in the bilateral extraocular canal similar to prior more prominent on the left. Correlate clinically. Vascular calcification distal internal carot id artery and vertebral arteries is redemonstrated. The globes are intact and the visualized sinuses are clear. IMPRESSION: No acute intracranial hemorrhage or midline shift. There is moderate diffuse cerebral a trophy and chronic small vessel ischemic change redemonstrated. No significant change from prior.
[2022-03-16 08:55] LABS: Appearance,Urine Turbid (Clear); Bacteria,Urine Few /hpf; Bilirubin,Urine Negative (Negative); Blood,Urine Large (Negative); Budding Yeast,Urine Moderate /hpf; Color,Urine Yellow; Glucose,Urine (UA) Negative (Negative); Hyaline Casts,Urine 41 /lpf (0-2); Ketones,Urine 1+ (Negative); Leukocyte Esterase,Urine Large (Negative); Mucus,Urine Many /hpf; Nitrite,Urine Negative (Negative); PH, Urine 5.5 (5.0-8.0); Protein,Urine 1+ (Negative); RBC,Urine >182 /hpf (0-5); Specific Gravity,Urine 1.013 (1.001-1.035); Squamous Epithelial Cell,Urine 1 /hpf (0-4); Urobilinogen,Urine <2.0 mg/dL (<2.0); WBC,Urine 91 /hpf (0-5)
[2022-03-16] MEDS ORDERED: SODIUM CHLORIDE 0.9% 1,000 ML IV STA (08:55)
[2022-03-16 09:02] LABS: Amphetamine Screen,Urine Not Detected (NotDetected); Barbiturate Screen,Urine Not Detected (NotDetected); Benzodiazepines Screen,Urine Not Detected (NotDetected); Cocaine Screen,Urine Not Detected (NotDetected); Methadone Screen, Urine Not Detected (NotDetected); Opiate Screen,Urine Not Detected (NotDetected); Oxycodone Screen, Urine Not Detected (NotDetected); Phencyclidine Screen,Urine Not Detected (NotDetected); Tricyclic Antidepressant,Urine Not Detected (NotDetected); Urn Cannabinoid Scrn Not Detected (NotDetected)
[2022-03-16] MEDS ORDERED: VANCOMYCIN 1,000 MG VIAL IVPB SCH (09:30)
[2022-03-16] MEDS ORDERED: CEFEPIME 2 GM VIAL IVPB SCH (09:30)
[2022-03-16] MEDS ORDERED: VANCOMYCIN IV PER PHARMACY 1 EACH MISC MISCELLANE PRN (09:49)
[2022-03-16] MEDS ORDERED: NALOXONE 0.4 MG/ML 1 ML VIAL IV PRN (10:01)
--- NOTE | 2022-03-16 10:05 | ED ---
General Adult HPI - General Chief complaint: Altered Mental Status Stated complaint: AMS Time Seen by Provider: 03/16/22 07:24 Source: patient, EMS, RN notes reviewed, old records reviewed Mode of arrival: EMS Limitations: altered mental status - History of Present Illness Initial comments: Patient is an 81-year-old male who presents from a fpc with confusion that started yesterday. History is difficult per EMS as well as per fpc. Sometime yesterday discharge the patient be more confused. Baseline he is normally alert and oriented 4. He is now alert and oriented times approximate 2. Is generalized weakness. Does have a left-sided PICC line and is being treated for UTI as well as MRSA infection with vancomycin and cefepime. The fpc sent the patient to the emergency department for further evaluation. Patient is unable to provide much history. Has no acute complaints at this time. - Related Data Home Medications Medication Instructions Recorded Confirmed Aspirin 81 mg PO DAILY 12/13/14 03/16/22 amLODIPine [Norvasc] 5 mg PO BID 12/13/14 03/16/22 Tamsulosin [Flomax] 0.4 mg PO DAILY 12/05/18 03/16/22 Finasteride [Proscar] 5 mg PO DAILY 09/23/21 03/16/22 Heparin Sodium,Porcine [Heparin 5,000 unit SQ Q12H 03/16/22 03/16/22 Sodium] Magnesium Hydroxide [Milk of 2,400 mg PO DAILY PRN 03/16/22 03/16/22 Magnesia] Multivitamins, Thera [Multivitamin 1 tab PO DAILY 03/16/22 03/16/22 (formulary)] Na Phos,M-B/Na Phos,Di-Ba [Fleet 133 ml RECTAL DAILY PRN 03/16/22 03/16/22 Adult] Prostat 30 ml PO BID 03/16/22 03/16/22 Simvastatin [Zocor] 20 mg PO HS 03/16/22 03/16/22 Vancomycin 1,250 mg IVPB Q12H 03/16/22 03/16/22 bisacodyL [Dulcolax] 10 mg RECTAL DAILY PRN 03/16/22 03/16/22 Previous Rx's Medication Instructions Recorded Acetaminophen Tab [Tylenol] 650 mg PO Q6HR PRN tab 03/03/22 Cefepime [Maxipime] 2 gm IVPB Q8H 14 Days #42 each 03/03/22 Allergies Allergy/AdvReac Type Severity Reaction Status Date / Time No Known Allergies Allergy Verified 03/16/22 09:06 Review of Systems ROS Statement: Those systems with pertinent positive or pertinent negative responses have been documented in the HPI. ROS Other: All systems not noted in ROS Statement are negative. 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 Last Myocardial Infarction Date:: 1996 History of Any Multi-Drug Resistant Organisms: None Reported Date of last positivie culture/infection: 02/27/22 MDRO Source:: Buttock Past Surgical History: Back Surgery, Coronary Bypass/CABG, Heart Catheterization Additional Past Surgical History / Comment(s): 1996 CABG 5 vessel, colonoscopy. Past Anesthesia/Blood Transfusion Reactions: No Reported Reaction Smoking Status: Never smoker - Past Family History Mother Family Medical History: Coronary Artery Disease (CAD) Additional Family Medical History / Comment(s): CABG Father History Unknown: Yes Additional Family Medical History / Comment(s): Father never went to the doctor. General Exam - General Exam Comments Initial Comments: General: Appears in no acute distress. HEAD: Normal with no signs of head trauma. EYES: PERRLA, EOMI, conjunctiva normal, no discharge. Pupils 3 mm and equal bilaterally. ENT: Hearing grossly intact, normal oropharynx. Mild dry mucous membranes. RESPIRATORY: Clear breath sounds bilaterally. No wheezes, rales, or rhonchi. C/V: Regular rate and rhythm. S1 and S2 auscultated, no edema, peripheral pulses 2+ and intact throughout ABD: Abd is soft, nontender, nondistended EXT: Normal range of motion, no obvious deformity SKIN: Stage I to 2 sacral decubitus ulcer. Mild erythema. No discharge. NEURO: Alert and oriented 2. Moving all 4 extremities. Appears generalized weak. No focal deficits. Limitations: altered mental status Course Vital Signs 03/16/22 03/16/2222 07:19 07:25 08:26 Temperature 98.4 F Pulse Rate 59 L 58 L Respiratory 16 18 Rate Blood Pressure 161/66 165/70 O2 Sat by Pulse 96 98 Oximetry 03/16/22 12:20 Temperature Pulse Rate 56 L Respiratory 18 Rate Blood Pressure 148/96 O2 Sat by Pulse 96 Oximetry Medical Decision Making - Medical Decision Making Based on the patient's presentation and physical exam, I'm concerned for altered mental status for the patient. This is likely secondary to infectious process but cannot rule out other etiology at this time. He appears mildly dehydrated as well. Vital signs are within acceptable limits. We'll obtain infectious labs and altered mental status labs. He was in agreement this plan. EKG showed no signs of acute ischemia. Chest x-ray as interpreted by myself shows no acute cardiopulmonary process. Brain CT is interpreted by myself reveals no acute intracranial process. No signs of bleed or midline shift. Laboratory studies are remarkable for a chronic anemia with a hemoglobin of 12.6 which is stable. Patient has an AK I with a creatinine of 2.45 and BUN of 39 which is acute. Troponin is indeterminate. Urinalysis shows UTI. UDS and alcohol are negative. Ammonia is within normal limits. I did the patient. I believe he requires inpatient admission for dehydration, DIOMEDES, UTI. Vences catheter was replaced. We will continue his vancomycin and cefepime and consult Dr. Dominguez for further recommendations. I spoke with the admitting physician, Dr. Landry who accepted the patient. Patient was admitted in stable condition. We will continue IV fluids, IV antibiotics. - Lab Data Result diagrams: 03/16/22 07:40 03/16/22 07:54 Lab Results 03/16/22 03/16/22 03/16/22 Range/Units 07:24 07:40 07:54 WBC 9.4 (3.8-10.6) k/uL RBC 3.92 L (4.30-5.90) m/uL Hgb 12.6 L (13.0-17.5) gm/dL Hct 37.0 L (39.0-53.0) % MCV 94.3 (80.0-100.0) fL MCH 32.2 (25.0-35.0) pg MCHC 34.1 (31.0-37.0) g/dL RDW 12.8 (11.5-15.5) % Plt Count 179 (150-450) k/uL MPV 9.4 Neutrophils % 86 % Lymphocytes % 7 % Monocytes % 4 % Eosinophils % 2 % Basophils % 1 % Neutrophils # 8.0 H (1.3-7.7) k/uL Lymphocytes # 0.6 L (1.0-4.8) k/uL Monocytes # 0.4 (0-1.0) k/uL Eosinophils # 0.2 (0-0.7) k/uL Basophils # 0.0 (0-0.2) k/uL PT 12.5 H (9.0-12.0) sec INR 1.2 H (<1.2) APTT 26.3 (22.0-30.0) sec Sodium (137-145) mmol/L Potassium (3.5-5.1) mmol/L Chloride (98-107) mmol/L Carbon Dioxide (22-30) mmol/L Anion Gap mmol/L BUN (9-20) mg/dL Creatinine (0.66-1.25) mg/dL Est GFR (CKD-EPI)AfAm (>60 ml/min/1.73 sqM) Est GFR (CKD-EPI)NonAf (>60 ml/min/1.73 sqM) Glucose (74-99) mg/dL POC Glucose (mg/dL) 80 (70-110) mg/dL POC Glu Assisted Living Housekeeper ID [place], Sin Plasma Lactic Acid Jareth (0.7-2.0) mmol/L Calcium (8.4-10.2) mg/dL Total Bilirubin (0.2-1.3) mg/dL AST (17-59) U/L ALT (4-49) U/L Alkaline Phosphatase (38-126) U/L Ammonia (<30) umol/L Troponin I (0.000-0.034) ng/mL Total Protein (6.3-8.2) g/dL Albumin (3.5-5.0) g/dL Urine Color Urine Appearance (Clear) Urine pH (5.0-8.0) Ur Specific [place] (1.001-1.035) Urine Protein (Negative) Urine Glucose (UA) (Negative) Urine Ketones (Negative) Urine Blood (Negative) Urine Nitrite (Negative) Urine Bilirubin (Negative) Urine Urobilinogen (<2.0) mg/dL Ur Leukocyte Esterase (Negative) Urine RBC (0-5) /hpf Urine WBC (0-5) /hpf Urine WBC Clumps (None) /hpf Ur Squamous Epith Cells (0-4) /hpf Urine Bacteria (None) /hpf Hyaline Casts (0-2) /lpf Urine Mucus (None) /hpf Urine Yeast (Budding) (None) /hpf Urine Opiates Screen (NotDetected) Ur Oxycodone Screen (NotDetected) Urine Methadone Screen (NotDetected) Ur Propoxyphene Screen (NotDetected) Ur Barbiturates Screen (NotDetected) U Tricyclic Antidepress (NotDetected) Ur Phencyclidine Scrn (NotDetected) Ur Amphetamines Screen (NotDetected) U Methamphetamines Scrn (NotDetected) U Benzodiazepines Scrn (NotDetected) Urine Cocaine Screen (NotDetected) U Marijuana (THC) Screen (NotDetected) Serum Alcohol mg/dL 03/16/22 03/16/22 03/16/22 Range/Units 07:54 07:54 07:54 WBC (3.8-10.6) k/uL RBC (4.30-5.90) m/uL Hgb (13.0-17.5) gm/dL Hct (39.0-53.0) % MCV (80.0-100.0) fL MCH (25.0-35.0) pg MCHC (31.0-37.0) g/dL RDW (11.5-15.5) % Plt Count (150-450) k/uL MPV Neutrophils % % Lymphocytes % % Monocytes % % Eosinophils % % Basophils % % Neutrophils # (1.3-7.7) k/uL Lymphocytes # (1.0-4.8) k/uL Monocytes # (0-1.0) k/uL Eosinophils # (0-0.7) k/uL Basophils # (0-0.2) k/uL PT (9.0-12.0) sec INR (<1.2) APTT (22.0-30.0) sec Sodium 136 L (137-145) mmol/L Potassium 3.8 (3.5-5.1) mmol/L Chloride 103 (98-107) mmol/L Carbon Dioxide 24 (22-30) mmol/L Anion Gap 9 mmol/L BUN 39 H (9-20) mg/dL Creatinine 2.45 H (0.66-1.25) mg/dL Est GFR (CKD-EPI)AfAm 27 (>60 ml/min/1.73 sqM) Est GFR (CKD-EPI)NonAf 24 (>60 ml/min/1.73 sqM) Glucose 86 (74-99) mg/dL POC Glucose (mg/dL) (70-110) mg/dL POC Glu Assisted Living Housekeeper ID Plasma Lactic Acid Jareth 0.9 (0.7-2.0) mmol/L Calcium 8.0 L (8.4-10.2) mg/dL Total Bilirubin 0.8 (0.2-1.3) mg/dL AST 33 (17-59) U/L ALT 18 (4-49) U/L Alkaline Phosphatase 68 (38-126) U/L Ammonia <9 (<30) umol/L Troponin I 0.015 (0.000-0.034) ng/mL Total Protein 5.6 L (6.3-8.2) g/dL Albumin 3.0 L (3.5-5.0) g/dL Urine Color Urine Appearance (Clear) Urine pH (5.0-8.0) Ur Specific [place] (1.001-1.035) Urine Protein (Negative) Urine Glucose (UA) (Negative) Urine Ketones (Negative) Urine Blood (Negative) Urine Nitrite (Negative) Urine Bilirubin (Negative) Urine Urobilinogen (<2.0) mg/dL Ur Leukocyte Esterase (Negative) Urine RBC (0-5) /hpf Urine WBC (0-5) /hpf Urine WBC Clumps (None) /hpf Ur Squamous Epith Cells (0-4) /hpf Urine Bacteria (None) /hpf Hyaline Casts (0-2) /lpf Urine Mucus (None) /hpf Urine Yeast (Budding) (None) /hpf Urine Opiates Screen (NotDetected) Ur Oxycodone Screen (NotDetected) Urine Methadone Screen (NotDetected) Ur Propoxyphene Screen (NotDetected) Ur Barbiturates Screen (NotDetected) U Tricyclic Antidepress (NotDetected) Ur Phencyclidine Scrn (NotDetected) Ur Amphetamines Screen (NotDetected) U Methamphetamines Scrn (NotDetected) U Benzodiazepines Scrn (NotDetected) Urine Cocaine Screen (NotDetected) U Marijuana (THC) Screen (NotDetected) Serum Alcohol <10 mg/dL 03/16/22 Range/Units 08:26 WBC (3.8-10.6) k/uL RBC (4.30-5.90) m/uL Hgb (13.0-17.5) gm/dL Hct (39.0-53.0) % MCV (80.0-100.0) fL MCH (25.0-35.0) pg MCHC (31.0-37.0) g/dL RDW (11.5-15.5) % Plt Count (150-450) k/uL MPV Neutrophils % % Lymphocytes % % Monocytes % % Eosinophils % % Basophils % % Neutrophils # (1.3-7.7) k/uL Lymphocytes # (1.0-4.8) k/uL Monocytes # (0-1.0) k/uL Eosinophils # (0-0.7) k/uL Basophils # (0-0.2) k/uL PT (9.0-12.0) sec INR (<1.2) APTT (22.0-30.0) sec Sodium (137-145) mmol/L Potassium (3.5-5.1) mmol/L Chloride (98-107) mmol/L Carbon Dioxide (22-30) mmol/L Anion Gap mmol/L BUN (9-20) mg/dL Creatinine (0.66-1.25) mg/dL Est GFR (CKD-EPI)AfAm (>60 ml/min/1.73 sqM) Est GFR (CKD-EPI)NonAf (>60 ml/min/1.73 sqM) Glucose (74-99) mg/dL POC Glucose (mg/dL) (70-110) mg/dL POC Glu Assisted Living Housekeeper ID Plasma Lactic Acid Jareth (0.7-2.0) mmol/L Calcium (8.4-10.2) mg/dL Total Bilirubin (0.2-1.3) mg/dL AST (17-59) U/L ALT (4-49) U/L Alkaline Phosphatase (38-126) U/L Ammonia (<30) umol/L Troponin I (0.000-0.034) ng/mL Total Protein (6.3-8.2) g/dL Albumin (3.5-5.0) g/dL Urine Color Yellow Urine Appearance Turbid (Clear) Urine pH 5.5 (5.0-8.0) Ur Specific [place] 1.013 (1.001-1.035) Urine Protein 1+ H (Negative) Urine Glucose (UA) Negative (Negative) Urine Ketones 1+ H (Negative) Urine Blood Large H (Negative) Urine Nitrite Negative (Negative) Urine Bilirubin Negative (Negative) Urine Urobilinogen <2.0 (<2.0) mg/dL Ur Leukocyte Esterase Large H (Negative) Urine RBC >182 H (0-5) /hpf Urine WBC 91 H (0-5) /hpf Urine WBC Clumps Few H (None) /hpf Ur Squamous Epith Cells 1 (0-4) /hpf Urine Bacteria Few H (None) /hpf Hyaline Casts 41 H (0-2) /lpf Urine Mucus Many H (None) /hpf Urine Yeast (Budding) Moderate H (None) /hpf Urine Opiates Screen Not Detected (NotDetected) Ur Oxycodone Screen Not Detected (NotDetected) Urine Methadone Screen Not Detected (NotDetected) Ur Propoxyphene Screen Not Detected (NotDetected) Ur Barbiturates Screen Not Detected (NotDetected) U Tricyclic Antidepress Not Detected (NotDetected) Ur Phencyclidine Scrn Not Detected (NotDetected) Ur Amphetamines Screen Not Detected (NotDetected) U Methamphetamines Scrn Not Detected (NotDetected) U Benzodiazepines Scrn Not Detected (NotDetected) Urine Cocaine Screen Not Detected (NotDetected) U Marijuana (THC) Screen Not Detected (NotDetected) Serum Alcohol mg/dL - EKG Data -: EKG Interpreted by Me EKG Comments: 12-lead Electrocardiogram Interpretation Note EKG was reviewed and interpreted by myself. 12-lead ECG performed at 0720 is interpreted by me as revealing sinus bradycardia at a rate of 57 beats per minute. [place] is normal. [place] interval is 158 ms, QRS durations 100 ms, QTc is 433 ms.. There were no ST or T wave abnormalities to suggest myocardial is chemia or injury. R wave progression across the precordium was satisfactory. By my interpretation this EKG is non-diagnostic for acute ischemia. When compared to EKG from February 2022, no acute changes. Disposition Clinical Impression: AMS (altered mental status), DIOMEDES (acute kidney injury), UTI (urinary tract infection) Disposition: ADMITTED IP TO THIS HOSP Condition: Stable Time of Disposition: 09:55
[2022-03-16] MEDS: SODIUM CHLORIDE 0.9% 1,000 ML IV SCH ×2 (10:55→21:13)
[2022-03-16] MEDS ORDERED: VANCOMYCIN 1,250 MG in SODIUM CHLORIDE 0.9% 250 ML IVPB SCH (11:00)
[2022-03-16] MEDS ORDERED: bisacodyL 10 MG SUPP RECTAL PRN (11:51)
[2022-03-16] MEDS ORDERED: MAGNESIUM HYDROXIDE 2,400 MG/10 ML CUP PO PRN (11:51)
[2022-03-16] MEDS ORDERED: ACETAMINOPHEN TAB 325 MG TAB PO PRN (11:51)
[2022-03-16] MEDS ORDERED: HEPARIN SODIUM,PORCINE/PF 5,000 UNIT/0.5 ML SYRINGE SQ SCH ×2 (12:00→21:00)
--- NOTE | 2022-03-16 13:58 | P.HPIM ---
History of Present Illness This is a pleasant 81-year-old male was recently treated for sacral gross ulcers patient was discharged on cefepime and vancomycin for Pseudomonas and Methylin recent staph aureus from the wounds. Patient was sent back to the hospital from skilled nursing because of altered mental status patient is found to have acute renal failure patient is alert oriented 1-2. Patient urine analysis was done which showed large leukocyte esterase moderate budding yeasts. REVIEW OF SYSTEMS: Not a reliable as patient is confused PHYSICAL EXAMINATION: GENERAL: The patient is alert and oriented x1-2, not in any acute distress. Well developed, well nourished. HEENT: Pupils are round and equally reacting to light. EOMI. No scleral icterus. No conjunctival pallor. Normocephalic, atraumatic. No pharyngeal erythema. No thyromegaly. CARDIOVASCULAR: S1 and S2 present. No murmurs, rubs, or gallops. PULMONARY: Chest is clear to auscultation, no wheezing or crackles. ABDOMEN: Soft, nontender, nondistended, normoactive bowel sounds. No palpable organomegaly. MUSCULOSKELETAL: No joint swelling or deformity. EXTREMITIES: No cyanosis, clubbing, or pedal edema. NEUROLOGICAL stage II sacral decubitus ulcers. Patient has a Vences catheter that was replaced. SKIN: No rashes. Assessment and plan -Metabolic encephalopathy probably secondary to acute renal failure which may be related to vancomycin nephrology will be consulted, infectious disease will be consulted. -Sacral decubitus ulcers which were infected and patient is presently on vancomycin which will be held and patient is also on cefepime. We will often likewise levels. Infectious disease will be consulted. 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 Last Myocardial Infarction Date:: 1996 History of Any Multi-Drug Resistant Organisms: None Reported Date of last positivie culture/infection: 02/27/22 MDRO Source:: Buttock Past Surgical History: Back Surgery, Coronary Bypass/CABG, Heart Catheterization Additional Past Surgical History / Comment(s): 1996 CABG 5 vessel, colonoscopy. Past Anesthesia/Blood Transfusion Reactions: No Reported Reaction Smoking Status: Never smoker - Past Family History Mother Family Medical History: Coronary Artery Disease (CAD) Additional Family Medical History / Comment(s): CABG Father History Unknown: Yes Additional Family Medical History / Comment(s): Father never went to the doctor. Medications and Allergies Home Medications Medication Instructions Recorded Confirmed Type Aspirin 81 mg PO DAILY 12/13/14 03/16/22 History amLODIPine [Norvasc] 5 mg PO BID 12/13/14 03/16/22 History Tamsulosin [Flomax] 0.4 mg PO DAILY 12/05/18 03/16/22 History Finasteride [Proscar] 5 mg PO DAILY 09/23/21 03/16/22 History Acetaminophen Tab [Tylenol] 650 mg PO Q6HR PRN tab 03/03/22 03/16/22 Rx Cefepime [Maxipime] 2 gm IVPB Q8H 14 Days #42 each 03/03/22 03/16/22 Rx Heparin Sodium,Porcine [Heparin 5,000 unit SQ Q12H 03/16/22 03/16/22 History Sodium] Magnesium Hydroxide [Milk of 2,400 mg PO DAILY PRN 03/16/22 03/16/22 History Magnesia] Multivitamins, Thera [Multivitamin 1 tab PO DAILY 03/16/22 03/16/22 History (formulary)] Na Phos,M-B/Na Phos,Di-Ba [Fleet 133 ml RECTAL DAILY PRN 03/16/22 03/16/22 History Adult] Prostat 30 ml PO BID 03/16/22 03/16/22 History Simvastatin [Zocor] 20 mg PO HS 03/16/22 03/16/22 History Vancomycin 1,250 mg IVPB Q12H 03/16/22 03/16/22 History bisacodyL [Dulcolax] 10 mg RECTAL DAILY PRN 03/16/22 03/16/22 History Allergies Allergy/AdvReac Type Severity Reaction Status Date / Time No Known Allergies Allergy Verified 03/16/22 09:06 Physical Exam Vitals: Vital Signs Temp Pulse Pulse Resp BP BP Pulse Ox 03/16/22 13:01 63 16 160/68 95 03/16/22 12:20 56 L 18 148/96 96 03/16/22 08:26 58 L 18 165/70 98 03/16/22 07:25 98.4 F 03/16/22 07:19 59 L 16 161/66 96 Intake and Output 03/15/22 03/16/22 03/16/22 22:59 06:59 14:59 Other: Weight 77.564 kg Results CBC & Chem 7: 03/16/22 07:40 03/16/22 07:54 Labs: Abnormal Lab Results - Last 24 Hours (Table) 03/16/22 03/16/22 03/16/22 Range/Units 07:40 07:54 07:54 RBC 3.92 L (4.30-5.90) m/uL Hgb 12.6 L (13.0-17.5) gm/dL Hct 37.0 L (39.0-53.0) % Neutrophils # 8.0 H (1.3-7.7) k/uL Lymphocytes # 0.6 L (1.0-4.8) k/uL PT 12.5 H (9.0-12.0) sec INR 1.2 H (<1.2) Sodium 136 L (137-145) mmol/L BUN 39 H (9-20) mg/dL Creatinine 2.45 H (0.66-1.25) mg/dL Calcium 8.0 L (8.4-10.2) mg/dL Total Protein 5.6 L (6.3-8.2) g/dL Albumin 3.0 L (3.5-5.0) g/dL Urine Protein (Negative) Urine Ketones (Negative) Urine Blood (Negative) Ur Leukocyte Esterase (Negative) Urine RBC (0-5) /hpf Urine WBC (0-5) /hpf Urine WBC Clumps (None) /hpf Urine Bacteria (None) /hpf Hyaline Casts (0-2) /lpf Urine Mucus (None) /hpf Urine Yeast (Budding) (None) /hpf 03/16/22 Range/Units 08:26 RBC (4.30-5.90) m/uL Hgb (13.0-17.5) gm/dL Hct (39.0-53.0) % Neutrophils # (1.3-7.7) k/uL Lymphocytes # (1.0-4.8) k/uL PT (9.0-12.0) sec INR (<1.2) Sodium (137-145) mmol/L BUN (9-20) mg/dL Creatinine (0.66-1.25) mg/dL Calcium (8.4-10.2) mg/dL Total Protein (6.3-8.2) g/dL Albumin (3.5-5.0) g/dL Urine Protein 1+ H (Negative) Urine Ketones 1+ H (Negative) Urine Blood Large H (Negative) Ur Leukocyte Esterase Large H (Negative) Urine RBC >182 H (0-5) /hpf Urine WBC 91 H (0-5) /hpf Urine WBC Clumps Few H (None) /hpf Urine Bacteria Few H (None) /hpf Hyaline Casts 41 H (0-2) /lpf Urine Mucus Many H (None) /hpf Urine Yeast (Budding) Moderate H (None) /hpf
[2022-03-16] MEDS: CEFEPIME 1 GM in SODIUM CHLORIDE 0.9% 50 ML IVPB SCH (16:46)
[2022-03-16] MEDS: amLODIPine 5 MG TAB PO SCH (21:12)
[2022-03-16] MEDS: HEPARIN SODIUM,PORCINE/PF 5,000 UNIT/0.5 ML SYRINGE SQ SCH (21:12)
[2022-03-16] MEDS ORDERED: QUEtiapine 25 MG TAB PO STA (21:17)
[2022-03-17] MEDS: CEFEPIME 1 GM in SODIUM CHLORIDE 0.9% 50 ML IVPB SCH ×2 (06:31→16:32)
[2022-03-17] MEDS: HEPARIN SODIUM,PORCINE/PF 5,000 UNIT/0.5 ML SYRINGE SQ SCH (08:48)
[2022-03-17] MEDS: SODIUM CHLORIDE 0.9% 1,000 ML IV SCH ×2 (08:49→16:31)
[2022-03-17] MEDS: amLODIPine 5 MG TAB PO SCH ×2 (08:58→09:40)
[2022-03-17] MEDS: ASPIRIN 81 MG PO SCH ×2 (08:59→09:44)
[2022-03-17] MEDS: MULTIVITAMINS, THERA 1 EACH TAB PO SCH ×2 (09:00→09:44)
[2022-03-17] MEDS: TAMSULOSIN 0.4 MG CAP.ER.24H PO SCH ×2 (09:00→09:44)
[2022-03-17] MEDS: FINASTERIDE 5 MG TAB PO SCH ×2 (09:00→09:44)
[2022-03-17 10:10] LABS: HCT 33.3 % (39.6-50.0); HGB 11.1 g/dL (13.0-17.0); MCH 31.3 pg (27.0-32.0); MCHC 33.3 g/dL (32.0-37.0); MCV 93.8 fL (80.0-97.0); Mean Platelet Volume 10.9 fL (9.5-12.2); NRBC Per 100 WBC 0 /100 WBCS (0.0-0.0); Platelet Count 178 X 10*3/uL (140-440); RBC 3.55 X 10*6/uL (4.40-5.60); RDW 12.4 % (11.5-14.5); WBC 8.48 X 10*3/uL (4.50-10.00)
[2022-03-17 10:11] LABS: Basophils # (M) 0.08 X 10*3/uL (0.00-0.10); Eosinophils # (M) 0.34 X 10*3/uL (0.04-0.35); Lymphocytes # (M) 0.51 X 10*3/uL (0.90-5.00); Monocytes # (M) 0.34 X 10*3/uL (0.20-1.00); Neutrophils # (M) 7.21 X 10*3/uL (2.00-8.90); Neutrophils % (M) 85 %; RBC Morphology NORMAL
[2022-03-17 10:52] LABS: African American GFR (CKD) 21.4 (60.0-200.0); Anion Gap 10.8 mmol/L (10.00-18.00); BUN/Creat Ratio 14.37 Ratio (12.00-20.00); Blood Urea Nitrogen 43.1 mg/dL (9.0-27.0); Calcium 8.1 mg/dL (8.7-10.3); Carbon Dioxide 23.2 mmol/L (20.0-27.5); Non-African American GFR(CKD) 18.5 (60.0-200.0); Potassium 3.2 mmol/L (3.5-5.5)
--- NOTE | 2022-03-17 11:39 | P.NPCON ---
History of Present Illness - Reason for Consult acute renal failure - History of Present Illness Patient is an 81-year-old male with history of sacral decubitus ulcers, recently discharged from the hospital on 03/03/2022. Patient is admitted again with history of mental status changes. He was also noted to be in acute kidney injury at the halfway. It appears that patient had urine retention and 800 mL of urine was obtained on Vences catheter placement. Serum creatinine was 2.45 yesterday and this morning it said 3.0 Previous creatinine 0.5 on 03/14/2022. Patient was discharged on vancomycin. Vancomycin level noted at 33.5. Current UA shows 1+ protein WBCs 91 large blood Blood pressure is not low. In fact it is on the high side. No NSAIDs noted on med list. No recent IV contrast administration. Review of Systems As per HPI. Other systems negative. 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 Last Myocardial Infarction Date:: 1996 History of Any Multi-Drug Resistant Organisms: None Reported Date of last positivie culture/infection: 02/27/22 MDRO Source:: Buttock Past Surgical History: Back Surgery, Coronary Bypass/CABG, Heart Catheterization Additional Past Surgical History / Comment(s): 1996 CABG 5 vessel, colonoscopy. Past Anesthesia/Blood Transfusion Reactions: No Reported Reaction Smoking Status: Never smoker - Past Family History Mother Family Medical History: Coronary Artery Disease (CAD) Additional Family Medical History / Comment(s): CABG Father History Unknown: Yes Additional Family Medical History / Comment(s): Father never went to the doctor. Medications and Allergies Home Medications Medication Instructions Recorded Confirmed Type Aspirin 81 mg PO DAILY 12/13/14 03/16/22 History amLODIPine [Norvasc] 5 mg PO BID 12/13/14 03/16/22 History Tamsulosin [Flomax] 0.4 mg PO DAILY 12/05/18 03/16/22 History Finasteride [Proscar] 5 mg PO DAILY 09/23/21 03/16/22 History Acetaminophen Tab [Tylenol] 650 mg PO Q6HR PRN tab 03/03/22 03/16/22 Rx Cefepime [Maxipime] 2 gm IVPB Q8H 14 Days #42 each 03/03/22 03/16/22 Rx Heparin Sodium,Porcine [Heparin 5,000 unit SQ Q12H 03/16/22 03/16/22 History Sodium] Magnesium Hydroxide [Milk of 2,400 mg PO DAILY PRN 03/16/22 03/16/22 History Magnesia] Multivitamins, Thera [Multivitamin 1 tab PO DAILY 03/16/22 03/16/22 History (formulary)] Na Phos,M-B/Na Phos,Di-Ba [Fleet 133 ml RECTAL DAILY PRN 03/16/22 03/16/22 History Adult] Prostat 30 ml PO BID 03/16/22 03/16/22 History Simvastatin [Zocor] 20 mg PO HS 03/16/22 03/16/22 History Vancomycin 1,250 mg IVPB Q12H 03/16/22 03/16/22 History bisacodyL [Dulcolax] 10 mg RECTAL DAILY PRN 03/16/22 03/16/22 History Allergies Allergy/AdvReac Type Severity Reaction Status Date / Time No Known Allergies Allergy Verified 03/16/22 09:06 Physical Exam Vitals: Vital Signs Temp Pulse Pulse Resp BP BP Pulse Ox 03/17/22 08:42 97.6 F 82 25 H 165/80 92 L 03/17/22 04:05 98.5 F 59 L 16 178/70 94 L 03/16/22 18:50 98.5 F 62 18 153/74 96 03/16/22 13:01 63 16 160/68 95 03/16/22 12:20 56 L 18 148/96 96 Intake and Output 03/16/22 03/17/22 03/17/22 22:59 06:59 14:59 Intake Total 500 Output Total 800 350 Balance -800 150 Intake: Intake, IV Titration 500 Amount Sodium Chloride 0.9% 1, 500 000 ml @ 100 mls/hr IV . Q10H [facility] Rx#:[id number] Output: Urine 800 350 Other: Voiding Method Indwelling Catheter Patient is awake, comfortable, no acute distress Examination of the heart S1 and S2 Examination of the lungs bilateral breath sounds are heard Abdomen is soft nontender Examination of the lower extremities shows no significant edema Results - Lab Results Most recent lab results Calcium 8.1 mg/dL (8.7-10.3) L 03/17/22 05:45 03/17/22 05:43 03/17/22 05:45 Assessment and Plan Assessment: 1. Acute kidney injury nonoliguric secondary to vancomycin toxicity as well as possible underlying urine retention. Currently with Vences catheter and off of vancomycin. 2. Sacral decubitus ulcers maintained on cefepime and vancomycin prior to admission 3. Recent hospitalization for sacral decubitus ulcers and discharged on 03/02/2022 4. History of BPH maintained on Flomax and Proscar 5. Hypertension maintained on Norvasc 6. Pyuria rule out UTI. History of UTI during last admission with urine culture growing Pseudomonas. Plan: Continue IV fluids and Agree with discontinuation of vancomycin Into new with Vences catheter Repeat labs in a.m. Avoid any nephrotoxic agents Avoid hypotension Check ultrasound of the kidneys as it was not performed on last admission Thank you for the consultation. We'll continue to follow the patient with you during his hospitalization.
[2022-03-17 11:54] VITALS: BMI 22.5
--- NOTE | 2022-03-17 15:29 | P.PN ---
Subjective Progress Note Date: 03/17/22 This is a pleasant 81-year-old male was recently treated for sacral gross ulcers patient was discharged on cefepime and vancomycin for Pseudomonas and Methylin recent staph aureus from the wounds. Patient was sent back to the hospital from long term because of altered mental status patient is found to have acute renal failure patient is alert oriented 1-2. Patient urine analysis was done which showed large leukocyte esterase moderate budding yeasts. 03/17/2022 Patient is seen in follow-up this morning. On IV antibiotics with ID consulted. Patient is continued on cefepime and vancomycin has been discontinued. Patient continues to be confused and altered although somewhat following commands when speaking to. Patient is not eating very much and again remains confused. Patient does have a stage II decubitus ulcer noted on exam and will continue with wound care per ID recommendations and offloading with frequent position changes. WBC is within normal limits at 8.48 and hemoglobin is stable at 11.1, sodium is elevated at 141 with a potassium of 3.2 and kidney functions are worsening with a BUN of 43.1 and creatinine is 3.0 today. Nephrology is consulted and urine cultures currently are pending. Patient does continue with an indwelling Vences catheter which has been replaced. Urine appears less concentrated and clear on exam. REVIEW OF SYSTEMS: Not a reliable as patient is confused PHYSICAL EXAMINATION: GENERAL: The patient is alert and oriented x1-2, not in any acute distress. Confused. Well developed, well nourished. HEENT: Pupils are round and equally reacting to light. EOMI. No scleral icterus. No conjunctival pallor. Normocephalic, atraumatic. No pharyngeal erythema. No thyromegaly. CARDIOVASCULAR: S1 and S2 present. No murmurs, rubs, or gallops. PULMONARY: Chest is clear to auscultation, no wheezing or crackles. ABDOMEN: Soft, nontender, nondistended, normoactive bowel sounds. No palpable organomegaly. MUSCULOSKELETAL: No joint swelling or deformity. EXTREMITIES: No cyanosis, clubbing, or pedal edema. NEUROLOGICAL stage II sacral decubitus ulcers. Patient has a Vences catheter that was replaced. SKIN: No rashes. Assessment: -Metabolic encephalopathy probably secondary to acute renal failure which may be related to vancomycin toxicity. Nephrology and ID following and patient continues to be confused with worsening kidney functions -Stage II Sacral decubitus ulcers 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 -Acute kidney injury nonoliguric second 2 vancomycin toxicity as well as possible urinary retention requiring indwelling Vences catheter -Acute urinary tract infection, present on admission most likely secondary to indwelling Vences catheter -benign prostatic hypertrophy -Diabetes mellitus, type II, insulin-dependent -Coronary artery disease -Gastroesophageal reflux disease -Hyperlipidemia -Hypertension -DVT prophylaxis: Subcutaneous heparin -Full code Plan: Recommend to continue with IV antibiotics per infectious disease recommendations and vancomycin has been discontinued patient is continued on cefepime and currently awaiting urine cultures. Recommend to continue with local wound care and offloading with frequent position changes of the sacral area. Nephrology following and patient is maintained on IV hydration and adding torsemide with worsening kidney functions Recommend repeat labs in the a.m. Recommend Accu-Cheks before meals and at bedtime and will add sliding scale as needed although patient is not eating much and blood sugars have been on the softer side recommend to continue monitoring closely. Case management/social work following and will place PT/OT therapy consult as patient will likely be returning to [facility] once stabilized and discharged. The impression and plan of care has been dictated by Jade Junior, Nurse Practitioner as directed. Dr. Marcel MD I have performed a history and examination and MDM of this patient, discussed the same with the dictator, and agree with the dictator's assessment and plan as written ,documented as a scribe. Based on total visit time, I have performed more than 50% of the visit. Objective - Vital Signs Vital signs: Vital Signs Temp 97.6 F 03/17/22 08:42 Pulse 82 03/17/22 08:42 Resp 25 H 03/17/22 08:42 BP 165/80 03/17/22 08:42 Pulse Ox 92 L 03/17/22 08:42 FiO2 Intake & Output 03/16/22 03/17/22 03/17/22 18:59 06:59 18:59 Intake Total 500 Output Total 800 350 Balance -800 150 Weight 77.564 kg Intake: Intake, IV Titration 500 Amount Sodium Chloride 0.9% 1, 500 000 ml @ 100 mls/hr IV . Q10H [facility] Rx#:[id number] Output: Urine 800 350 Other: Voiding Method Indwelling Catheter - Labs CBC & Chem 7: 03/17/22 05:43 03/17/22 05:45 Labs: Abnormal Lab Results - Last 24 Hours (Table) 03/17/22 Range/Units 05:43 RBC 3.55 L (4.40-5.60) X 10*6/uL Hgb 11.1 L (13.0-17.0) g/dL Hct 33.3 L (39.6-50.0) % Lymphocytes # (Manual) 0.51 L (0.90-5.00) X 10*3/uL Microbiology - Last 24 Hours (Table) 03/16/22 07:54 Blood Culture - Preliminary Blood No Growth after 24 hours 03/16/22 07:54 Blood Culture - Preliminary Blood No Growth after 24 hours 03/16/22 08:26 Urine Culture - Preliminary Urine,Clean Catch
--- NOTE | 2022-03-17 16:11 | US ---
EXAMINATION TYPE: US kidneys/renal and bladder DATE OF EXAM: 03/17/2022 COMPARISON: NONE CLINICAL HISTORY: diomedes. DIOMEDES EXAM MEASUREMENTS: Right Kidney: 12.7 x 7.0 x 6.2 cm Left Kidney: 12.6 x 6.9 x 5.1 cm Right Kidney: Hypoechoic area lower pole = 0.9cm Left Kidney: cystic area mid = 2.5cm Bladder: Vences Catheter presence of Vences catheter is also nondiagnostic assessment bladder. IMPRESSION: Bilateral simple renal cysts. Renal cortex appears to be preserved. No hydronephrosis or nephrolithia sis
[2022-03-17] MEDS ORDERED: VANCOMYCIN 1,500 MG in SODIUM CHLORIDE 0.9% 500 ML 500 ML IVPB SCH (20:00)
[2022-03-18] MEDS: SODIUM CHLORIDE 0.9% 1,000 ML IV SCH ×2 (00:59→16:23)
[2022-03-18] MEDS: HEPARIN SODIUM,PORCINE/PF 5,000 UNIT/0.5 ML SYRINGE SQ SCH ×2 (01:00→12:05)
[2022-03-18] MEDS: amLODIPine 5 MG TAB PO SCH ×2 (01:00→10:34)
[2022-03-18 07:52] LABS: Basophils % (A) 0 %; Eosinophils % (A) 0 %; HCT 36.9 % (39.0-53.0); HGB 12.5 gm/dL (13.0-17.5); Lymphocytes # (A) 0.5 k/uL (1.0-4.8); Lymphocytes % (A) 5 %; MCH 31.7 pg (25.0-35.0); MCHC 33.8 g/dL (31.0-37.0); MCV 93.7 fL (80.0-100.0); Mean Platelet Volume 9.2; Monocytes # (A) 0.4 k/uL (0-1.0); Monocytes % (A) 4 %; Neutrophils # (A) 8.9 k/uL (1.3-7.7); Neutrophils % (A) 89 %; Platelet Count 182 k/uL (150-450); RBC 3.94 m/uL (4.30-5.90); RDW 12.9 % (11.5-15.5)
[2022-03-18 07:56] LABS: African American GFR (CKD) 21 (>60 ml/min/1.73 sqM); Anion Gap 14 mmol/L; Blood Urea Nitrogen 48 mg/dL (9-20); Calcium 8.2 mg/dL (8.4-10.2); Carbon Dioxide 21 mmol/L (22-30); Chloride 107 mmol/L (98-107); Glucose 88 mg/dL (74-99); Non-African American GFR(CKD) 18 (>60 ml/min/1.73 sqM); Potassium 3.1 mmol/L (3.5-5.1); Sodium 142 mmol/L (137-145)
--- NOTE | 2022-03-18 09:57 | P.CONS ---
History of Present Illness - Reason for Consult Consult date: 03/16/22 - History of Present Illness Patient is a 81-year-old male who was recently admitted at this hospital and treated for an infected sacral wound and a UTI urine was positive for Pseudomonas and sacral culture positive for MRSA and Pseudomonas and was advised in 2-week course of cefepime and Vanco the patient was receiving at the [facility], patient is now brought back to the hospital this morning for evaluation of confusion symptom has been going on for about a day before presentation to the hospital patient on arrival to the ER was afebrile and no fever have been recorded subsequently patient did have a normal white count with no left shift he did have elevated BUN and creatinine Vanco random was 33.5 ur ine toxin was negative patient did have a positive UA patient has been admitted to hospital infectious disease was consulted for further management of antibiotic therapy most of the information has been obtained from review the chart talking nursing staff as the patient himself cannot provide any history Past Medical History Past Medical History: Coronary Artery Disease (CAD), Chest Pain / Angina, CVA/TIA, GERD/Reflux, Hyperlipidemia, Hypertension, Myocardial Infarction (NM), Osteoarthritis (OA), Prostate Disorder Additional Past Medical History / Comment(s): 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 Last Myocardial Infarction Date:: 1996 History of Any Multi-Drug Resistant Organisms: None Reported Year Discovered:: 02/27/22 MDRO Source:: Buttock Past Surgical History: Back Surgery, Coronary Bypass/CABG, Heart Catheterization Additional Past Surgical History / Comment(s): 1996 CABG 5 vessel, colonoscopy. Past Anesthesia/Blood Transfusion Reactions: No Reported Reaction Smoking Status: Never smoker - Past Family History Mother Family Medical History: Coronary Artery Disease (CAD) Additional Family Medical History / Comment(s): CABG Father History Unknown: Yes Additional Family Medical History / Comment(s): Father never went to the doctor. Medications and Allergies Home Medications Medication Instructions Recorded Confirmed Type Aspirin 81 mg PO DAILY 12/13/14 03/16/22 History amLODIPine [Norvasc] 5 mg PO BID 12/13/14 03/16/22 History Tamsulosin [Flomax] 0.4 mg PO DAILY 12/05/18 03/16/22 History Finasteride [Proscar] 5 mg PO DAILY 09/23/21 03/16/22 History Acetaminophen Tab [Tylenol] 650 mg PO Q6HR PRN tab 03/03/22 03/16/22 Rx Cefepime [Maxipime] 2 gm IVPB Q8H 14 Days #42 each 03/03/22 03/16/22 Rx Heparin Sodium,Porcine [Heparin 5,000 unit SQ Q12H 03/16/22 03/16/22 History Sodium] Magnesium Hydroxide [Milk of 2,400 mg PO DAILY PRN 03/16/22 03/16/22 History Magnesia] Multivitamins, Thera [Multivitamin 1 tab PO DAILY 03/16/22 03/16/22 History (formulary)] Na Phos,M-B/Na Phos,Di-Ba [Fleet 133 ml RECTAL DAILY PRN 03/16/22 03/16/22 History Adult] Prostat 30 ml PO BID 03/16/22 03/16/22 History Simvastatin [Zocor] 20 mg PO HS 03/16/22 03/16/22 History Vancomycin 1,250 mg IVPB Q12H 03/16/22 03/16/22 History bisacodyL [Dulcolax] 10 mg RECTAL DAILY PRN 03/16/22 03/16/22 History Allergies Allergy/AdvReac Type Severity Reaction Status Date / Time No Known Allergies Allergy Verified 03/16/22 09:06 Physical Exam Vitals: Vital Signs Temp Pulse Resp BP BP Pulse Ox 03/18/22 09:40 98.0 F 83 19 166/86 93 L 03/18/22 05:00 98.2 F 92 18 169/60 94 L 03/18/22 01:05 100 167/77 03/17/22 19:23 99 F 75 26 H 192/76 94 L 03/17/22 12:29 97.9 F 55 L 16 136/56 91 L Intake and Output 03/17/22 03/18/22 03/18/22 22:59 06:59 14:59 Intake Total 1200 Output Total 500 1300 425 Balance -500 -100 -425 Intake: Intake, IV Titration 1200 Amount Sodium Chloride 0.9% 1, 1200 000 ml @ 100 mls/hr IV . Q10H [facility] Rx#:[id number] Output: Urine 500 1300 425 Other: Voiding Method Indwelling Catheter # Bowel Movements 1 Results CBC & Chem 7: 03/18/22 07:13 03/18/22 07:13 Labs: Abnormal Lab Results - Last 24 Hours (Table) 03/17/22 03/17/22 03/18/22 Range/Units 05:43 05:45 07:13 RBC 3.55 L 3.94 L (4.40-5.60) X 10*6/uL Hgb 11.1 L 12.5 L (13.0-17.0) g/dL Hct 33.3 L 36.9 L (39.6-50.0) % Neutrophils # 8.9 H (1.3-7.7) k/uL Lymphocytes # 0.5 L (1.0-4.8) k/uL Lymphocytes # (Manual) 0.51 L (0.90-5.00) X 10*3/uL Potassium 3.2 L (3.5-5.5) mmol/L Carbon Dioxide (22-30) mmol/L BUN 43.1 H (9.0-27.0) mg/dL Creatinine 3.0 H (0.6-1.5) mg/dL Est GFR (CKD-EPI)AfAm 21.4 L (60.0-200.0) Est GFR (CKD-EPI)NonAf 18.5 L (60.0-200.0) Calcium 8.1 L (8.7-10.3) mg/dL 03/18/22 Range/Units 07:13 RBC (4.40-5.60) X 10*6/uL Hgb (13.0-17.0) g/dL Hct (39.6-50.0) % Neutrophils # (1.3-7.7) k/uL Lymphocytes # (1.0-4.8) k/uL Lymphocytes # (Manual) (0.90-5.00) X 10*3/uL Potassium 3.1 L (3.5-5.5) mmol/L Carbon Dioxide 21 L (22-30) mmol/L BUN 48 H (9.0-27.0) mg/dL Creatinine 3.05 H (0.6-1.5) mg/dL Est GFR (CKD-EPI)AfAm (60.0-200.0) Est GFR (CKD-EPI)NonAf (60.0-200.0) Calcium 8.2 L (8.7-10.3) mg/dL Microbiology - Last 24 Hours (Table) 03/16/22 08:26 Urine Culture - Final Urine,Clean Catch 03/16/22 07:54 Blood Culture - Preliminary Blood No Growth after 24 hours 03/16/22 07:54 Blood Culture - Preliminary Blood No Growth after 24 hours Assessment and Plan Plan: 1patient presented to hospital with confusion and mental status change which is likely multifactorial likely metabolic in this patient noticed to have evidence of acute renal failure possibly later vancomycin the patient was receiving for a infected sacral pressure ulcer. 2patient also have a positive UA concerning for possible cath versus urinary tr act infection. 3patient sacral pressure ulcers seem to have shown some clinical improvement and will recommend local wound care with Aquacel silver dressing. 4no need for further vancomycin at this point and awaiting nephrology evaluation for his renal failure. 5continue with the cefepime while waiting for repeat urine culture to be finalized. We will follow on clinical condition and cultures to further adjust medication if needed Thank you for this consultation will follow this patient along with you Time with Patient: Greater than 30
--- NOTE | 2022-03-18 10:01 | P.PN ---
Subjective Progress Note Date: 03/17/22 Principal diagnosis: UTI and sacral pressure ulcer Patient is a 81-year-old male with recent admission to the hospital with Pseudomonas UTI and did have infected sacral pressure ulcer culture positive for Pseudomonas and MRSA and now admitted to the hospital with mental status changes confusion did have evidence of renal failure and a catheter associated UTI. On today's evaluation that is 03/17/2022 the patient remains to be afebrile, patient remains to be sleepy lethargic and unable to provide any history no vomiting diarrhea or any other changes reported by nursing staff patient Vences catheter was changed in the ER per the nursing staff Objective - Vital Signs Vital signs: Vital Signs Temp 97.9 F 03/17/22 12:29 Pulse 55 L 03/17/22 12:29 Resp 16 03/17/22 12:29 BP 136/56 03/17/22 12:29 Pulse Ox 91 L 03/17/22 12:29 FiO2 Intake & Output 03/16/22 03/17/22 03/17/22 18:59 06:59 18:59 Intake Total 500 Output Total 800 350 450 Balance -800 150 -450 Weight 77.564 kg 77.564 kg Intake: Intake, IV Titration 500 Amount Sodium Chloride 0.9% 1, 500 000 ml @ 100 mls/hr IV . Q10H [facility] Rx#:[id number] Output: Urine 800 350 450 Other: Voiding Method Indwelling Catheter Indwelling Catheter - Exam GENERAL DESCRIPTION: Elderly male lying in bed, no distress. No tachypnea or accessory muscle of respiration use. LUNGS: Unlabored breathing. Decreased breath sound at the base HEART: S1, S2, regular rate and rhythm. No loud murmur ABDOMEN: Soft, no tenderness , guarding or rigidity, no organomegaly Stage II sacral pressure ulcer no significant slough tissue surrounding redness EXTREMITIES: No edema of feet. - Labs CBC & Chem 7: 03/18/22 07:13 03/18/22 07:13 Labs: Abnormal Lab Results - Last 24 Hours (Table) 03/17/22 03/17/22 Range/Units 05:43 05:45 RBC 3.55 L (4.40-5.60) X 10*6/uL Hgb 11.1 L (13.0-17.0) g/dL Hct 33.3 L (39.6-50.0) % Lymphocytes # (Manual) 0.51 L (0.90-5.00) X 10*3/uL Potassium 3.2 L (3.5-5.5) mmol/L BUN 43.1 H (9.0-27.0) mg/dL Creatinine 3.0 H (0.6-1.5) mg/dL Est GFR (CKD-EPI)AfAm 21.4 L (60.0-200.0) Est GFR (CKD-EPI)NonAf 18.5 L (60.0-200.0) Calcium 8.1 L (8.7-10.3) mg/dL Microbiology - Last 24 Hours (Table) 03/16/22 08:26 Urine Culture - Final Urine,Clean Catch 03/16/22 07:54 Blood Culture - Preliminary Blood No Growth after 24 hours 03/16/22 07:54 Blood Culture - Preliminary Blood No Growth after 24 hours Assessment and Plan (1) Urinary tract infection Current Visit: Yes Status: Acute Code(s): N39.0 - URINARY TRACT INFECTION, SITE NOT SPECIFIED SNOMED Code(s): 36659804 (2) Sacral ulcer Current Visit: No Status: Acute Code(s): L98.429 - NON-PRESSURE CHRONIC ULCER OF BACK WITH UNSPECIFIED SEVERITY SNOMED Code(s): 34501446 Plan: 1patient with a stage II sacral pressure ulcer currently with no evidence of any cellulitis recommend local wound care with dry Aquacel silver dressing keep the area dry and of the pressure with the frequent change of position. 2possible catheter associated UTI apparently Vences catheter has been changed however is not clear if the urine has been obtained from the oral or the new catheter we will repeat his UA and continue with cefepime Time with Patient: Less than 30
[2022-03-18] MEDS: ASPIRIN 81 MG PO SCH (10:34)
[2022-03-18] MEDS: FINASTERIDE 5 MG TAB PO SCH (10:34)
[2022-03-18] MEDS: TAMSULOSIN 0.4 MG CAP.ER.24H PO SCH (10:35)
[2022-03-18] MEDS: MULTIVITAMINS, THERA 1 EACH TAB PO SCH (10:35)
[2022-03-18] MEDS ORDERED: POTASSIUM CHLORIDE ER 20 MEQ TAB.ER PO STA (11:35)
--- NOTE | 2022-03-18 11:36 | P.PN ---
Subjective Patient is seen for follow-up for acute kidney injury secondary to vancomycin toxicity. Possible urine retention as well. Currently with indwelling Vences catheter. Serum creatinine staying at 3.0 mg/dL. Patient does not communicate much. Urine output at 2.2 L. Maintained on IV fluids. Objective - Vital Signs Vital signs: Vital Signs Temp 98.0 F 03/18/22 09:40 Pulse 83 03/18/22 09:40 Resp 19 03/18/22 09:40 BP 166/86 03/18/22 09:40 Pulse Ox 93 L 03/18/22 09:40 FiO2 Intake & Output 03/17/22 03/18/22 03/18/22 18:59 06:59 18:59 Intake Total 1200 Output Total 950 1300 425 Balance -950 -100 -425 Weight 77.564 kg Intake: Intake, IV Titration 1200 Amount Sodium Chloride 0.9% 1, 1200 000 ml @ 100 mls/hr IV . Q10H [facility] Rx#:[id number] Output: Urine 950 1300 425 Other: Voiding Method Indwelling Catheter Indwelling Catheter # Bowel Movements 1 - Exam Patient is awake, comfortable, no acute distress He does not communicate much Examination of the heart S1 and S2 Exertion lungs decreased breath sounds at the bases Abdomen is soft nontender Examination lower extremities shows no significant edema Patient is moving all 4 extremities. - Labs CBC & Chem 7: 03/18/22 07:13 03/18/22 07:13 Labs: Abnormal Lab Results - Last 24 Hours (Table) 03/18/22 03/18/22 Range/Units 07:13 07:13 RBC 3.94 L (4.30-5.90) m/uL Hgb 12.5 L (13.0-17.5) gm/dL Hct 36.9 L (39.0-53.0) % Neutrophils # 8.9 H (1.3-7.7) k/uL Lymphocytes # 0.5 L (1.0-4.8) k/uL Potassium 3.1 L (3.5-5.1) mmol/L Carbon Dioxide 21 L (22-30) mmol/L BUN 48 H (9-20) mg/dL Creatinine 3.05 H (0.66-1.25) mg/dL Calcium 8.2 L (8.4-10.2) mg/dL Microbiology - Last 24 Hours (Table) 03/16/22 07:54 Blood Culture - Preliminary Blood No Growth after 48 hours 03/16/22 07:54 Blood Culture - Preliminary Blood No Growth after 48 hours 03/16/22 08:26 Urine Culture - Final Urine,Clean Catch Assessment and Plan Assessment: 1. Acute kidney injury nonoliguric secondary to vancomycin toxicity as well as possible underlying urine retention. Currently with Vences catheter and off of vancomycin. Continue with IV fluids as well 2. Sacral decubitus ulcers maintained on cefepime and vancomycin prior to admission 3. Recent hospitalization for sacral decubitus ulcers and discharged on 03/02/2022 4. History of BPH maintained on Flomax and Proscar 5. Hypertension maintained on Norvasc 6. Pyuria rule out UTI. History of UTI during last admission with urine culture growing Pseudomonas. Plan: Continue IV fluids and Maintain off of vancomycin Continue with Vences catheter Repeat labs in a.m. Avoid any nephrotoxic agents Avoid hypotension Replace potassium
--- NOTE | 2022-03-18 12:22 | XR ---
EXAMINATION TYPE: XR chest 1V portable DATE OF EXAM: 03/18/2022 COMPARISON: 03/16/2022 HISTORY: Shortness of breath TECHNIQUE: Single frontal view of the chest is obtained. FINDINGS: Postsurgical change overlying the mediastinum and cervical spine. Hyperinflation suggests COPD. Left basilar consolidation. No overt failure. No pleural effusion or pneumothorax. Left-sided P ICC line noted. IMPRESSION: 1. Left basilar infiltrate correlate for pneumonia. 2. COPD.
[2022-03-18] MEDS ORDERED: Potassium Replacement Protocol 1 EACH MISC MISCELLANE PRN (12:44)
[2022-03-18 14:25] LABS: Amorphous Sediment,Urine Rare /hpf; Appearance,Urine Clear (Clear); Bacteria,Urine Rare /hpf; Bilirubin,Urine Negative (Negative); Blood,Urine Large (Negative); Color,Urine Colorless; Glucose,Urine (UA) Negative (Negative); Ketones,Urine 1+ (Negative); Leukocyte Esterase,Urine Negative (Negative); Mucus,Urine Rare /hpf; Nitrite,Urine Negative (Negative); Protein,Urine Trace (Negative); RBC,Urine 3 /hpf (0-5); Specific Gravity,Urine 1.008 (1.001-1.035); Squamous Epithelial Cell,Urine <1 /hpf (0-4); Urobilinogen,Urine <2.0 mg/dL (<2.0); WBC,Urine 1 /hpf (0-5)
[2022-03-18] MEDS: POTASSIUM CHLORIDE 10 MEQ in WATER FOR INJECTION 1 100ML.BAG IVPB SCH ×4 (15:21→18:57)
--- NOTE | 2022-03-18 15:44 | P.PN ---
Subjective Progress Note Date: 03/18/22 This is a pleasant 81-year-old male was recently treated for sacral gross ulcers patient was discharged on cefepime and vancomycin for Pseudomonas and Methylin recent staph aureus from the wounds. Patient was sent back to the hospital from residential because of altered mental status patient is found to have acute renal failure patient is alert oriented 1-2. Patient urine analysis was done which showed large leukocyte esterase moderate budding yeasts. 03/17/2022 Patient is seen in follow-up this morning. On IV antibiotics with ID consulted. Patient is continued on cefepime and vancomycin has been discontinued. Patient continues to be confused and altered although somewhat following commands when speaking to. Patient is not eating very much and again remains confused. Patient does have a stage II decubitus ulcer noted on exam and will continue with wound care per ID recommendations and offloading with frequent position changes. WBC is within normal limits at 8.48 and hemoglobin is stable at 11.1, sodium is elevated at 141 with a potassium of 3.2 and kidney functions are worsening with a BUN of 43.1 and creatinine is 3.0 today. Nephrology is consulted and urine cultures currently are pending. Patient does continue with an indwelling Vences catheter which has been replaced. Urine appears less concentrated and clear on exam. 03/18/2022 Patient is seen and evaluated in follow-up continues to be confused although appears somewhat more alert today than yesterday. Labs reviewed today and white count remains normal at 10.0, hemoglobin is 12.5, sodium is 142 with a potassium of 3.1, BUN is elevated at 48 and creatinine is 3.05 with a magnesium of 2.0. Urine culture showing normal deborah and antibiotics were discontinued with a repeat urinalysis ordered with ID following closely. Patient was maintained on cefepime. Potassium low at 3.1 and replaced per protocol. Patient is not tolerating oral intake with concerns for aspiration and will obtain chest x-ray. Patient per nursing staff is not taking medications by mouth as well. Patient does have indwelling Vences catheter and urine appears clear and improved from yesterday. Patient is maintained on normal saline at 100 mL per hour and recommend to continue with. Follow-up labs in the a.m. Nephrology following. Afebrile and continues to be significantly weak. Recommend continue with local wound care. REVIEW OF SYSTEMS: Unable to obtain as patient is confused PHYSICAL EXAMINATION: GENERAL: The patient is alert and oriented x1-2,. Confused although appears somewhat improved from yesterday. Well developed, well nourished. HEENT: Pupils are round and equally reacting to light. EOMI. No scleral icterus. No conjunctival pallor. Normocephalic, atraumatic. No pharyngeal erythema. No thyromegaly. CARDIOVASCULAR: S1 and S2 muffled PULMONARY: Diminished breath sounds bilaterally with some scattered rhonchi and crackles noted ABDOMEN: Soft, nontender, nondistended, normoactive bowel sounds. No palpable organomegaly. MUSCULOSKELETAL: No joint swelling or deformity. EXTREMITIES: No cyanosis, clubbing, or pedal edema. NEUROLOGICAL stage II sacral decubitus ulcers. Patient has a Vences catheter that was replaced. SKIN: No rashes. Assessment: -Metabolic encephalopathy probably secondary to acute renal failure which may also be related to vancomycin toxicity. Nephrology and ID following and patient continues to be confused with worsening kidney functions -Stage II Sacral decubitus ulcers 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 -Acute kidney injury nonoliguric secondary vancomycin toxicity as well as possible urinary retention requiring indwelling Vences catheter -Acute urinary tract infection, present on admission most likely secondary to indwelling Vences catheter -Hypokalemia -benign prostatic hypertrophy -Diabetes mellitus, type II, insulin-dependent -Coronary artery disease -Gastroesophageal reflux disease -Hyperlipidemia -Hypertension -DVT prophylaxis: Subcutaneous heparin -Full code Plan: Recommend to continue with local wound care and antibiotic treatment per infectious disease recommendations vancomycin has been discontinued patient was maintained on cefepime although discontinued as urine culture report is normal and repeat urine analysis pending . Recommend to continue with local wound care and offloading with frequent position changes of the sacral area. Nephrology following and patient is maintained on IV hydration recommend follow- up labs Patient is high risk for aspiration recommend aspiration precautions and will consult speech for possible swallow eval as patient is not tolerating any oral intake and per nursing staff is not taking any oral medications Recommend repeat labs in the a.m. continue with electrolyte replacement protocol Recommend Accu-Cheks before meals and at bedtime and will add sliding scale as needed although patient is not eating much and blood sugars have been on the softer side recommend to continue monitoring closely. will add sliding scale if needed Case management/social work following and will place PT/OT therapy consult as patient will likely be returning to ECF once stabilized and discharged. No plans for immediate discharge at this time Due to multiple complex medical issues, prognosis is guarded. The impression and plan of care has been dictated by Jade Junior, Nurse Pr actitioner as directed. Dr. Marcel MD I have performed a history and examination and MDM of this patient, discussed the same with the dictator, and agree with the dictator's assessment and plan a s written ,documented as a scribe. Based on total visit time, I have performed more than 50% of the visit. Objective - Vital Signs Vital signs: Vital Signs Temp 98.0 F 03/18/22 09:40 Pulse 83 03/18/22 09:40 Resp 19 03/18/22 09:40 BP 166/86 03/18/22 09:40 Pulse Ox 93 L 03/18/22 09:40 FiO2 Intake & Output 03/17/22 03/18/22 03/18/22 18:59 06:59 18:59 Intake Total 1200 Output Total 950 1300 425 Balance -950 -100 -425 Weight 77.564 kg Intake: Intake, IV Titration 1200 Amount Sodium Chloride 0.9% 1, 1200 000 ml @ 100 mls/hr IV . Q10H [facility] Rx#:[id number] Output: Urine 950 1300 425 Other: Voiding Method Indwelling Catheter Indwelling Catheter Indwelling Catheter # Bowel Movements 1 - Labs CBC & Chem 7: 03/18/22 07:13 03/18/22 07:13 Labs: Abnormal Lab Results - Last 24 Hours (Table) 03/18/22 03/18/22 Range/Units 07:13 07:13 RBC 3.94 L (4.30-5.90) m/uL Hgb 12.5 L (13.0-17.5) gm/dL Hct 36.9 L (39.0-53.0) % Neutrophils # 8.9 H (1.3-7.7) k/uL Lymphocytes # 0.5 L (1.0-4.8) k/uL Potassium 3.1 L (3.5-5.1) mmol/L Carbon Dioxide 21 L (22-30) mmol/L BUN 48 H (9-20) mg/dL Creatinine 3.05 H (0.66-1.25) mg/dL Calcium 8.2 L (8.4-10.2) mg/dL Microbiology - Last 24 Hours (Table) 03/16/22 07:54 Blood Culture - Preliminary Blood No Growth after 48 hours 03/16/22 07:54 Blood Culture - Preliminary Blood No Growth after 48 hours 03/16/22 08:26 Urine Culture - Final Urine,Clean Catch
[2022-03-19] MEDS ORDERED: hydrALAZINE HCL 20 MG/ML 1 ML VIAL ONE (00:23)
[2022-03-19] MEDS: hydrALAZINE HCL 20 MG/ML 1 ML VIAL IVP PRN (00:42)
[2022-03-19] MEDS: HEPARIN SODIUM,PORCINE/PF 5,000 UNIT/0.5 ML SYRINGE SQ SCH ×3 (01:10→20:33)
[2022-03-19] MEDS: amLODIPine 5 MG TAB PO SCH ×3 (01:10→20:13)
[2022-03-19] MEDS: SODIUM CHLORIDE 0.9% 1,000 ML IV SCH ×2 (01:12→14:13)
[2022-03-19] MEDS: ASPIRIN 81 MG PO SCH (09:49)
[2022-03-19] MEDS: MULTIVITAMINS, THERA 1 EACH TAB PO SCH (09:55)
[2022-03-19] MEDS: TAMSULOSIN 0.4 MG CAP.ER.24H PO SCH (09:55)
[2022-03-19] MEDS: FINASTERIDE 5 MG TAB PO SCH (09:55)
[2022-03-19] MEDS ORDERED: IPRATROPIUM-ALBUTEROL 3 ML NEB INHALATION PRN (13:20)
--- NOTE | 2022-03-19 13:47 | PN ---
PROGRESS NOTE DATE OF SERVICE: 03/19/2022 DATE OF SERVICE: 03/19/2022. SUBJECTIVE: This is an 81-year-old gentleman who was admitted with acute metabolic acidosis secondary to renal failure, also had vancomycin toxicity. Patient continues to be drowsy. A CT of the brain, which was done earlier and reviewed personally by me showed moderate diffuse cerebral atrophy. The cultures are negative so far. PAST MEDICAL HISTORY: Reviewed. REVIEW OF SYSTEMS: Could not be taken. CURRENT MEDICATIONS: Reviewed include aspirin, doses and rest of medications reviewed. PHYSICAL EXAMINATION: VITAL SIGNS: Pulse 91, blood pressure 166/85, and respirations 18. CHEST: Clear to auscultation. CARDIOVASCULAR: S1, S2. ABDOMEN: Soft. NERVOUS SYSTEM: Diffusely weak. LABS: Reviewed, potassium 3.8. ASSESSMENT: 1. Metabolic acidosis, possibly secondary to acute renal failure related to vancomycin toxicity. 2. Stage II sacral decubitus ulcer. 3. Acute kidney injury. 4. Acute urinary tract infection. 5. Diabetes mellitus, type 2. 6. Coronary artery disease. 7. Multiple medical issues. 8. Full code. 9. Left lower lobe pneumonia, possibly aspiration. RECOMMENDATIONS: Recommend to continue current medications, symptomatic treatment. Otherwise at this time, continue with the current medications and also a chest x-ray was done yesterday, reviewed personally by me showed left basilar infiltrate. We will add Zosyn to the current regimen, obtain cultures. The prognosis is guarded. See orders for details. Further recommendations to follow. MMODL / IJN: [id number] /
[2022-03-19] MEDS ORDERED: PIPERACILLIN-TAZOBACTAM 3.375 GM in SODIUM CHLORIDE 0.9% 100 ML IVPB ONE (14:00)
--- NOTE | 2022-03-19 15:04 | CT ---
EXAMINATION TYPE: CT brain wo con DATE OF EXAM: 03/19/2022 COMPARISON: 03/16/2022 HISTORY: AMS CT DLP: 1202.10 mGycm Automated exposure control for dose reduction was used. FINDINGS: The ventricles, basal cisterns and sulci over the convexities are moderately to markedly enlarged con sistent with moderate to marked atrophy. There is diffuse decreased density in the deep periventricular white matter consistent with chronic i schemic white matter demyelination There is no acute intra or extra-axial hemorrhage. There is no mass effect or shift of midline structures. There is no significant interval change compared to the prior study. The posterior fossa is grossly normal. Intraorbital contents are normal and symmetric. Visualized paranasal sinuses and mastoid air cells ar e well aerated. The calvarium is intact. IMPRESSION: 1. No acute bleed or mass effect. 2. Moderate to marked atrophy and moderate chronic ischemic white matter changes. 3. No interval change since the prior study. IMPRESSION:
[2022-03-19] MEDS: 1: THIAMINE 100 MG, FOLIC ACID 1 MG in SODIUM CHLORIDE 0.9% 1,000 ML 2: SODIUM CHLORIDE IV SCH (15:59)
[2022-03-19] MEDS: THIAMINE 100 MG TAB PO SCH (16:06)
--- NOTE | 2022-03-19 17:40 | P.PN ---
Subjective Progress Note Date: 03/19/22 Follow-up for acute kidney injury. Nonverbal, currently in restraints. Urine output of 2300 in the last 24 hours. Objective - Vital Signs Vital signs: Vital Signs Temp 99.4 F 03/19/22 12:12 Pulse 91 03/19/22 12:12 Resp 18 03/19/22 12:12 BP 166/85 03/19/22 12:12 Pulse Ox 96 03/19/22 12:12 FiO2 Intake & Output 03/18/22 03/19/22 03/19/22 18:59 06:59 18:59 Intake Total 1300 Output Total 1275 1100 1150 Balance 25 -1100 -1150 Intake: Intake, IV Titration 1300 Amount Potassium Chloride 10 meq 300 In Water For Injection 1 100ml.bag @ 100 mls/hr IVPB Q1HR [facility] Rx#: [id number] Sodium Chloride 0.9% 1, 1000 000 ml @ 100 mls/hr IV . Q10H [facility] Rx#:[id number] Output: Urine 1275 1100 1150 Other: Voiding Method Indwelling Catheter Indwelling Catheter - Exam No acute distress S1-S2 heard Lungs clear No edema Vences - Labs CBC & Chem 7: 03/18/22 07:13 03/18/22 21:32 Labs: Microbiology - Last 24 Hours (Table) 03/16/22 07:54 Blood Culture - Preliminary Blood No Growth after 72 hours 03/16/22 07:54 Blood Culture - Preliminary Blood No Growth after 72 hours Assessment and Plan Assessment: #1 acute kidney injury multifactorial. -Vancomycin toxicity with level of 33.5 -AIN with use of Zosyn -Baseline creatinine 0.5 MG per DL. #2 sacral decubitus ulcers was on cefepime and vancomycin as outpatient. #3 BPH, on Vences. #4 hypertension, currently running high #5 complicated UTI Plan: #1 renal function high, stable. If creatinine continue to remain high, discontinue Zosyn and use alternative antibiotics. #2 replace KCl #3 daily renal labs #4 avoid nephrotoxic agents and hypotensive episodes.
[2022-03-19] MEDS ORDERED: ACETAMINOPHEN IV (For NPO) 1,000 MG in EMPTY BAG 1 BAG IVPB PRN (18:22)
[2022-03-19] MEDS: IPRATROPIUM-ALBUTEROL 3 ML NEB INHALATION SCH (20:10)
[2022-03-19] MEDS: PIPERACILLIN-TAZOBACTAM 3.375 GM in SODIUM CHLORIDE 0.9% 100 ML IVPB SCH (20:32)
--- NOTE | 2022-03-20 00:15 | P.PN ---
Subjective Progress Note Date: 03/18/22 Principal diagnosis: UTI and sacral pressure ulcer Patient is a 81-year-old male with recent admission to the hospital with Pseudomonas UTI and did have infected sacral pressure ulcer culture positive for Pseudomonas and MRSA and now admitted to the hospital with mental status changes confusion did have evidence of renal failure and a catheter associated UTI. On today's evaluation that is 03/18/2022 the patient continues to be afebrile, patient remains to be sleepy lethargic and unable to provide any history no vomiting diarrhea or any other changes reported by nursing staff Objective - Vital Signs Vital signs: Vital Signs Temp 98.5 F 03/18/22 12:27 Pulse 68 03/18/22 12:27 Resp 19 03/18/22 12:27 BP 167/76 03/18/22 12:27 Pulse Ox 96 03/18/22 12:27 FiO2 Intake & Output 03/17/22 03/18/22 03/18/22 18:59 06:59 18:59 Intake Total 1200 Output Total 950 1300 425 Balance -950 -100 -425 Weight 77.564 kg Intake: Intake, IV Titration 1200 Amount Sodium Chloride 0.9% 1, 1200 000 ml @ 100 mls/hr IV . Q10H [facility] Rx#:[id number] Output: Urine 950 1300 425 Other: Voiding Method Indwelling Catheter Indwelling Catheter Indwelling Catheter # Bowel Movements 1 - Exam GENERAL DESCRIPTION: Elderly male lying in bed, no distress. No tachypnea or accessory muscle of respiration use. LUNGS: Unlabored breathing. Decreased breath sound at the base HEART: S1, S2, regular rate and rhythm. No loud murmur ABDOMEN: Soft, no tenderness , guarding or rigidity, no organomegaly Stage II sacral pressure ulcer no significant slough tissue surrounding redness EXTREMITIES: No edema of feet. - Labs CBC & Chem 7: 03/18/22 07:13 03/18/22 21:32 Labs: Abnormal Lab Results - Last 24 Hours (Table) 03/18/22 03/18/22 03/18/22 Range/Units 07:13 07:13 13:50 RBC 3.94 L (4.30-5.90) m/uL Hgb 12.5 L (13.0-17.5) gm/dL Hct 36.9 L (39.0-53.0) % Neutrophils # 8.9 H (1.3-7.7) k/uL Lymphocytes # 0.5 L (1.0-4.8) k/uL Potassium 3.1 L (3.5-5.1) mmol/L Carbon Dioxide 21 L (22-30) mmol/L BUN 48 H (9-20) mg/dL Creatinine 3.05 H (0.66-1.25) mg/dL Calcium 8.2 L (8.4-10.2) mg/dL Urine Protein Trace H (Negative) Urine Ketones 1+ H (Negative) Urine Blood Large H (Negative) Amorphous Sediment Rare H (None) /hpf Urine Bacteria Rare H (None) /hpf Urine Mucus Rare H (None) /hpf Microbiology - Last 24 Hours (Table) 03/16/22 07:54 Blood Culture - Preliminary Blood No Growth after 48 hours 03/16/22 07:54 Blood Culture - Preliminary Blood No Growth after 48 hours 03/16/22 08:26 Urine Culture - Final Urine,Clean Catch Assessment and Plan (1) Urinary tract infection Current Visit: Yes Status: Acute Code(s): N39.0 - URINARY TRACT INFECTION, SITE NOT SPECIFIED SNOMED Code(s): 56168181 (2) Sacral ulcer Current Visit: No Status: Acute Code(s): L98.429 - NON-PRESSURE CHRONIC ULCER OF BACK WITH UNSPECIFIED SEVERITY SNOMED Code(s): 50162375 Plan: 1patient with a stage II sacral pressure ulcer currently with no evidence of any cellulitis recommend local wound care with dry Aquacel silver dressing keep the area dry and of the pressure with the frequent change of position. 2possible catheter associated UTI apparently Vences catheter has been changed , cultures have been negative so far patient to continue with cefepime and we will repeat his UA and culture Daughter at the bedside multiple questions concerned were answered Time with Patient: Less than 30
--- NOTE | 2022-03-20 00:16 | P.PN ---
Subjective Progress Note Date: 03/19/22 Principal diagnosis: UTI and sacral pressure ulcer Patient is a 81-year-old male with recent admission to the hospital with Pseudomonas UTI and did have infected sacral pressure ulcer culture positive for Pseudomonas and MRSA and now admitted to the hospital with mental status changes confusion did have evidence of renal failure and a catheter associated UTI. On today's evaluation that is 03/19/2022 the patient remains to be afebrile, patient sleepy lethargic and unable to provide any history , no vomiting diarrhea or any other changes reported by nursing staff Objective - Vital Signs Vital signs: Vital Signs Temp 99.4 F 03/19/22 12:12 Pulse 91 03/19/22 12:12 Resp 18 03/19/22 12:12 BP 166/85 03/19/22 12:12 Pulse Ox 96 03/19/22 12:12 FiO2 Intake & Output 03/18/22 03/19/22 03/19/22 18:59 06:59 18:59 Intake Total 1300 Output Total 1275 1100 500 Balance 25 -1100 -500 Intake: Intake, IV Titration 1300 Amount Potassium Chloride 10 meq 300 In Water For Injection 1 100ml.bag @ 100 mls/hr IVPB Q1HR [facility] Rx#: [id number] Sodium Chloride 0.9% 1, 1000 000 ml @ 100 mls/hr IV . Q10H [facility] Rx#:[id number] Output: Urine 1275 1100 500 Other: Voiding Method Indwelling Catheter Indwelling Catheter - Exam GENERAL DESCRIPTION: Elderly male lying in bed, no distress. No tachypnea or accessory muscle of respiration use. LUNGS: Unlabored breathing. Decreased breath sound at the base HEART: S1, S2, regular rate and rhythm. No loud murmur ABDOMEN: Soft, no tenderness , guarding or rigidity, no organomegaly Stage II sacral pressure ulcer no significant slough tissue surrounding redness EXTREMITIES: No edema of feet. - Labs CBC & Chem 7: 03/18/22 07:13 03/18/22 21:32 Labs: Microbiology - Last 24 Hours (Table) 03/16/22 07:54 Blood Culture - Preliminary Blood No Growth after 72 hours 03/16/22 07:54 Blood Culture - Preliminary Blood No Growth after 72 hours Assessment and Plan (1) Urinary tract infection Current Visit: Yes Status: Acute Code(s): N39.0 - URINARY TRACT INFECTION, SITE NOT SPECIFIED SNOMED Code(s): 92693460 (2) Sacral ulcer Current Visit: No Status: Acute Code(s): L98.429 - NON-PRESSURE CHRONIC ULCER OF BACK WITH UNSPECIFIED SEVERITY SNOMED Code(s): 42319408 Plan: 1patient with a stage II sacral pressure ulcer currently with no evidence of any cellulitis recommend local wound care with dry Aquacel silver dressing keep the area dry and of the pressure with the frequent change of position. 2possible catheter associated UTI apparently Vences catheter has been changed , cultures have been negative so far and her repeat UA is clear, antibiotic can be safely discontinued Time with Patient: Less than 30
[2022-03-20] MEDS: hydrALAZINE HCL 20 MG/ML 1 ML VIAL IVP PRN ×2 (01:10→21:44)
[2022-03-20] MEDS: 1: THIAMINE 100 MG, FOLIC ACID 1 MG in SODIUM CHLORIDE 0.9% 1,000 ML 2: SODIUM CHLORIDE IV SCH ×2 (01:46→15:08)
--- NOTE | 2022-03-20 05:05 | XR ---
EXAMINATION TYPE: XR chest 1V DATE OF EXAM: 03/20/2022 COMPARISON: 03/18/2022 HISTORY: Short of breath TECHNIQUE: Single view FINDINGS: There is bilateral pulmonary interstitial and airspace edema. There are sternal wires. Hear t is top normal in size. No definite pleural effusion. IMPRESSION: There is pulmonary edema in the mid and lower lung morales which is increased compared to recent exam and could be acute heart failure or developing RDS.
[2022-03-20] MEDS ORDERED: FUROSEMIDE 10 MG/ML 4 ML VIAL IV STA (05:15)
[2022-03-20] MEDS: THIAMINE 100 MG TAB PO SCH ×2 (06:01→15:09)
[2022-03-20] MEDS: IPRATROPIUM-ALBUTEROL 3 ML NEB INHALATION SCH ×3 (08:20→20:16)
[2022-03-20 09:16] LABS: African American GFR (CKD) 20.3 (60.0-200.0); Anion Gap 16.5 mmol/L (10.00-18.00); BUN/Creat Ratio 15.96 Ratio (12.00-20.00); Basophils # (A) 0.04 X 10*3/uL (0.00-0.10); Basophils % (A) 0.3 %; Blood Urea Nitrogen 50.1 mg/dL (9.0-27.0); Calcium 8.6 mg/dL (8.7-10.3); Carbon Dioxide 24.2 mmol/L (20.0-27.5); Eosinophils # (A) 0 X 10*3/uL (0.04-0.35); Eosinophils % (A) 0 %; HCT 37.8 % (39.6-50.0); HGB 12.7 g/dL (13.0-17.0); Immature Grans, Automated 0.6 %; Lymphocytes # (A) 0.73 X 10*3/uL (0.90-5.00); Lymphocytes % (A) 5.3 %; MCH 31.2 pg (27.0-32.0); MCHC 33.6 g/dL (32.0-37.0); MCV 92.9 fL (80.0-97.0); Mean Platelet Volume 10.9 fL (9.5-12.2); Monocytes # (A) 0.93 X 10*3/uL (0.20-1.00); Monocytes % (A) 6.7 %; NRBC Per 100 WBC 0 /100 WBCS (0.0-0.0); Neutrophils # (A) 12.12 X 10*3/uL (1.80-7.70); Neutrophils % (A) 87.1 %; Non-African American GFR(CKD) 17.5 (60.0-200.0); Platelet Count 217 X 10*3/uL (140-440); RBC 4.07 X 10*6/uL (4.40-5.60); RDW 12.8 % (11.5-14.5)
[2022-03-20] MEDS: PIPERACILLIN-TAZOBACTAM 3.375 GM in SODIUM CHLORIDE 0.9% 100 ML IVPB SCH ×2 (09:36→21:25)
[2022-03-20] MEDS: amLODIPine 5 MG TAB PO SCH ×2 (09:39→21:48)
[2022-03-20] MEDS: HEPARIN SODIUM,PORCINE/PF 5,000 UNIT/0.5 ML SYRINGE SQ SCH ×2 (09:40→21:26)
[2022-03-20] MEDS: FINASTERIDE 5 MG TAB PO SCH (09:40)
[2022-03-20] MEDS: ASPIRIN 81 MG PO SCH (09:40)
[2022-03-20] MEDS: TAMSULOSIN 0.4 MG CAP.ER.24H PO SCH (09:40)
[2022-03-20] MEDS: MULTIVITAMINS, THERA 1 EACH TAB PO SCH (09:40)
[2022-03-20] MEDS: FOLIC ACID 1 MG TAB PO SCH (13:06)
[2022-03-20] MEDS: POTASSIUM CHLORIDE 20 MEQ in WATER FOR INJECTION 1 100ML.BAG IVPB SCH ×3 (13:08→18:28)
--- NOTE | 2022-03-20 13:09 | P.PN ---
Subjective Progress Note Date: 03/20/22 I am following-up with patient today. Initial consultation note was paper note since EMR was down yesterday. Per the nurse, he seems more awake today compared to yesterday. According to son, he was walking with walker at home and was responsive. Objective - Vital Signs Vital signs: Vital Signs Temp 97.7 F 03/20/22 11:40 Pulse 98 03/20/22 12:08 Resp 22 03/20/22 11:40 BP 159/73 03/20/22 11:40 Pulse Ox 97 03/20/22 11:40 FiO2 Intake & Output 03/19/22 03/20/22 03/20/22 19:59 06:59 18:59 Intake Total Output Total 1400 Balance -1400 Intake: Intake, IV Titration Amount Piperacillin-Tazobactam 3 .375 gm In Sodium Chloride 0.9% 100 ml @ 25 mls/hr IVPB Q12H [facility] Rx# :[id number] Sodium Chloride 0.9% 1, 000 ml @ 100 mls/hr IV . BY DURATION [facility] Rx#: [id number] Thiamine 100 mg Folic Acid 1 mg In Sodium Chloride 0.9% 1,000 ml @ 100 mls/hr IV .BY DURATION [facility] Rx#: [id number] Output: Urine 1400 Other: Voiding Method Indwelling Catheter # Bowel Movements - Exam GENERAL: The patient is lying in bed and is not in acute distress. LUNG: Some coarse noted. Has loud snoring. ABDOMEN/GI: Bowel sounds present in all 4 quadrants. No tenderness to palpation throughout. NEUROLOGICAL: Higher mental function: The patient was asleep but is awakeable to voice. He did not verbally respond but was showing me a thumbs up on left hand. Not following commands. Cranial nerves: The pupils are round, equal and reactive to light. EOM is tracking me throughout the room. No facial weakness. Motor: The strength is hard to assess individual muscles but lifting left upper and right lower spontaneously. Showing thumbs up on left hand. SOME OF THE WORK-UP DURING THIS HOSPITAL VISIT CONSISTED OF: Patient creatinine is 3.1 and on presentation was 2.45. By mouth and is also tendon up compared to initial presentation Sodium is 148 Calcium is 8.1 and the most recent is a 0.6 Ammonia is 9 Vitamin B12 is 822 AST and ALT is within normal limits Repeat CT of the head on 02/16/2022 was reported as no acute bleed or mass effect. [id number] marketed atrophy and moderate chronic ischemic white matter changes. No interval changes since the prior study. I personally could not reviewed the CT of the head because issues with the system Culture is reported as. Skin the fluoroscopy or genital deborah. - Labs CBC & Chem 7: 03/20/22 05:32 03/20/22 05:32 Labs: Abnormal Lab Results - Last 24 Hours (Table) 03/20/22 03/20/22 Range/Units 05:32 05:32 WBC 13.90 H (4.50-10.00) X 10*3/uL RBC 4.07 L (4.40-5.60) X 10*6/uL Hgb 12.7 L (13.0-17.0) g/dL Hct 37.8 L (39.6-50.0) % Immature Gran # 0.08 H (0.00-0.04) X 10*3/uL Neutrophils # 12.12 H (1.80-7.70) X 10*3/uL Lymphocytes # 0.73 L (0.90-5.00) X 10*3/uL Eosinophils # 0 L (0.04-0.35) X 10*3/uL Sodium 148 H (135-145) mmol/L Potassium 3.0 L (3.5-5.5) mmol/L BUN 50.1 H (9.0-27.0) mg/dL Creatinine 3.1 H (0.6-1.5) mg/dL Est GFR (CKD-EPI)AfAm 20.3 L (60.0-200.0) Est GFR (CKD-EPI)NonAf 17.5 L (60.0-200.0) Glucose 117 H (70-110) mg/dL Calcium 8.6 L (8.7-10.3) mg/dL Microbiology - Last 24 Hours (Table) 03/16/22 07:54 Blood Culture - Preliminary Blood No Growth after 96 hours 03/16/22 07:54 Blood Culture - Preliminary Blood No Growth after 96 hours Assessment and Plan Assessment: Encephalopathy likely due to underlying metabolic encephalopathy. His mentation is minimally to mildly improved compared to yesterday Acute kidney insufficiency Acute hypernatremia likely due to dehydration Sacral decubitus ulcer Benign prostatic hyperplasia Hypertension Urinary Tract infection Plan: Pending routine EEG since the patient has confusion to rule out any seizure or epileptiform discharges. Pending folate level. If the patient mentation does not improve can consider MRI of the brain to rule out any acute or subacute ischemic stroke not seen on the CAT scan. ID team is on board Nephrology team is on board We'll defer the rest of the medical management to primary team Plan discussed with the patient's nurse Time with Patient: Less than 30
--- NOTE | 2022-03-20 16:53 | P.PN ---
Subjective Progress Note Date: 03/20/22 Follow-up for acute kidney injury. Nonverbal, currently in restraints. Urine output of 3150 ML's in the last 24 hours. Objective - Vital Signs Vital signs: Vital Signs Temp 97.7 F 03/20/22 11:40 Pulse 98 03/20/22 12:08 Resp 22 03/20/22 11:40 BP 159/73 03/20/22 11:40 Pulse Ox 97 03/20/22 11:40 FiO2 Intake & Output 03/19/22 03/20/22 03/20/22 19:59 06:59 18:59 Intake Total Output Total 2250 Balance -2250 Intake: Intake, IV Titration Amount Piperacillin-Tazobactam 3 .375 gm In Sodium Chloride 0.9% 100 ml @ 25 mls/hr IVPB Q12H [facility] Rx# :[id number] Sodium Chloride 0.9% 1, 000 ml @ 100 mls/hr IV . BY DURATION [facility] Rx#: [id number] Thiamine 100 mg Folic Acid 1 mg In Sodium Chloride 0.9% 1,000 ml @ 100 mls/hr IV .BY DURATION [facility] Rx#: [id number] Output: Urine 2250 Other: Voiding Method Indwelling Catheter # Bowel Movements - Exam No acute distress S1-S2 heard Lungs clear No edema Vences - Labs CBC & Chem 7: 03/20/22 05:32 03/20/22 05:32 Labs: Abnormal Lab Results - Last 24 Hours (Table) 03/20/22 03/20/22 Range/Units 05:32 05:32 WBC 13.90 H (4.50-10.00) X 10*3/uL RBC 4.07 L (4.40-5.60) X 10*6/uL Hgb 12.7 L (13.0-17.0) g/dL Hct 37.8 L (39.6-50.0) % Immature Gran # 0.08 H (0.00-0.04) X 10*3/uL Neutrophils # 12.12 H (1.80-7.70) X 10*3/uL Lymphocytes # 0.73 L (0.90-5.00) X 10*3/uL Eosinophils # 0 L (0.04-0.35) X 10*3/uL Sodium 148 H (135-145) mmol/L Potassium 3.0 L (3.5-5.5) mmol/L BUN 50.1 H (9.0-27.0) mg/dL Creatinine 3.1 H (0.6-1.5) mg/dL Est GFR (CKD-EPI)AfAm 20.3 L (60.0-200.0) Est GFR (CKD-EPI)NonAf 17.5 L (60.0-200.0) Glucose 117 H (70-110) mg/dL Calcium 8.6 L (8.7-10.3) mg/dL Microbiology - Last 24 Hours (Table) 03/16/22 07:54 Blood Culture - Preliminary Blood No Growth after 96 hours 03/16/22 07:54 Blood Culture - Preliminary Blood No Growth after 96 hours Assessment and Plan Assessment: #1 acute kidney injury multifactorial. -Vancomycin toxicity with level of 33.5 -AIN with use of Zosyn -Baseline creatinine 0.5 MG per DL. #2 sacral decubitus ulcers was on cefepime and vancomycin as outpatient. #3 BPH, on Vences. #4 hypertension, currently running high #5 complicated UTI Plan: #1 renal function high, stable. If creatinine continue to remain high, discontinue Zosyn and use alternative antibiotics. #2 replace KCl #3 daily renal labs #4 avoid nephrotoxic agents and hypotensive episodes.
[2022-03-20] MEDS: SODIUM CHLORIDE 0.9% 1,000 ML with THIAMINE 100 MG, FOLIC ACID 1 MG IV SCH ×3 (21:10)
--- NOTE | 2022-03-21 02:26 | PN ---
PROGRESS NOTE DATE OF SERVICE: 03/20/2022 DATE OF SERVICE: 03/20/2022. SUBJECTIVE: This is an 81-year-old gentleman who was admitted with metabolic acidosis secondary to acute renal failure, vancomycin toxicity, being closely monitored. No chest pain, no palpitation. PHYSICAL EXAMINATION: VITAL SIGNS: Pulse is 82, blood pressure 159/73, and respirations 20. CHEST: Clear to auscultation, few scattered rhonchi. ABDOMEN: Soft. NERVOUS SYSTEM: Diffusely weak. LABS: Potassium 3, rest of his labs are noted. ASSESSMENT: 1. Acute metabolic acidosis possibly secondary from acute renal failure secondary to vancomycin toxicity. 2. Stage II sacral decubitus ulcer. 3. Acute kidney injury. 4. Acute urinary tract infection. 5. Multiple medical issues. 6. Left lower lobe pneumonia, possibly aspiration. 7. Full code. RECOMMENDATIONS: Recommended to continue current management, continue the antibiotics, otherwise continue rest of medications. Prognosis guarded. Closely follow with Neurology. Further recommendations to follow. MMODL / IJN: [id number] /
[2022-03-21] MEDS: POTASSIUM CHLORIDE 10 MEQ in WATER FOR INJECTION 1 100ML.BAG IVPB SCH ×8 (05:22→18:52)
[2022-03-21] MEDS: hydrALAZINE HCL 20 MG/ML 1 ML VIAL IVP PRN ×2 (05:54→14:24)
[2022-03-21] MEDS: IPRATROPIUM-ALBUTEROL 3 ML NEB INHALATION SCH ×3 (08:01→19:42)
--- NOTE | 2022-03-21 08:11 | XR ---
EXAMINATION TYPE: XR chest 1V portable DATE OF EXAM: 03/21/2022 COMPARISON: 03/20/2022 HISTORY: Shortness of breath TECHNIQUE: Single frontal view of the chest is obtained. FINDINGS: There is left lower lobe consolidation and small bilateral effusions. Interstitium is impr crista. Cardiomegaly and underlying COPD suspected. Arthropathy shoulders and postoperative changes. IMPRESSION: 1. Mild improvement of the interstitial changes suggestive of improving CHF or interstitial pneumonit is. 2. Stable lower lobe infiltrate. 3. Correlate for COPD
[2022-03-21] MEDS: ASPIRIN 81 MG PO SCH (08:18)
[2022-03-21] MEDS: FINASTERIDE 5 MG TAB PO SCH (08:18)
[2022-03-21] MEDS: THIAMINE 100 MG TAB PO SCH ×2 (08:18→17:35)
[2022-03-21] MEDS: amLODIPine 5 MG TAB PO SCH ×2 (08:18→20:41)
[2022-03-21] MEDS: MULTIVITAMINS, THERA 1 EACH TAB PO SCH (08:19)
[2022-03-21] MEDS: PIPERACILLIN-TAZOBACTAM 3.375 GM in SODIUM CHLORIDE 0.9% 100 ML IVPB SCH ×2 (08:19→20:44)
[2022-03-21] MEDS: TAMSULOSIN 0.4 MG CAP.ER.24H PO SCH (08:22)
[2022-03-21] MEDS: HEPARIN SODIUM,PORCINE/PF 5,000 UNIT/0.5 ML SYRINGE SQ SCH ×2 (08:28→20:44)
--- NOTE | 2022-03-21 09:01 | P.PN ---
Subjective Progress Note Date: 03/21/22 The patient is seen at bedside and according to the patient's nurse overnight he started improving drastically compared to initial presentation. Patient states that he's doing better today. Objective - Vital Signs Vital signs: Vital Signs Temp 97.2 F L 03/21/22 04:30 Pulse 68 03/21/22 04:30 Resp 18 03/21/22 04:30 BP 182/94 03/21/22 04:30 Pulse Ox 96 03/21/22 04:30 FiO2 Intake & Output 03/20/22 03/21/22 03/21/22 18:59 06:59 18:59 Intake Total 200 Output Total 2250 900 Balance -2049 Intake: Intake, IV Titration 200 Amount Potassium Chloride 20 meq 200 In Water For Injection 1 100ml.bag @ 50 mls/hr IVPB Q2H [facility] Rx#: [id number] Output: Urine 2250 900 Other: Voiding Method Indwelling Catheter Indwelling Catheter - Exam GENERAL: The patient is lying in bed and is not in acute distress. ABDOMEN/GI: Bowel sounds present in all 4 quadrants. No tenderness to palpation throughout. NEUROLOGICAL: Higher mental function: The patient is somewhat sleepy but is awakeable to voice. He is oriented to self, stated the year is 2020 and he was in the hospital. He seems more awake and responsive today compared to the last couple days. He named objects correctly (glasses and pen). Is following simple commands. No neglect or aphasia. Cranial nerves: The pupils are round, equal and reactive to light. Visual morales are full to confrontation throughout.. EOM is tracking me throughout the room. No facial weakness. No dysarthria Motor: The strength is hard to assess individual muscles but lifting all extremities above gravity. SOME OF THE WORK-UP DURING THIS HOSPITAL VISIT CONSISTED OF: Patient creatinine is 3.1 and on presentation was 2.45. By mouth and is also tendon up compared to initial presentation Sodium is 148 Calcium is 8.1 and the most recent is a 0.6 Ammonia is 9 Vitamin B12 is 822 AST and ALT is within normal limits Repeat CT of the head on 02/16/2022 was reported as no acute bleed or mass effect. [id number] marketed atrophy and moderate chronic ischemic white matter changes. No interval changes since the prior study. I personally could not reviewed the CT of the head because issues with the system Culture is reported as. Skin the fluoroscopy or genital deborah. - Labs CBC & Chem 7: 03/20/22 05:32 03/20/22 20:54 Labs: Abnormal Lab Results - Last 24 Hours (Table) 03/20/22 03/20/22 03/20/22 Range/Units 05:32 05:32 20:54 WBC 13.90 H (4.50-10.00) X 10*3/uL RBC 4.07 L (4.40-5.60) X 10*6/uL Hgb 12.7 L (13.0-17.0) g/dL Hct 37.8 L (39.6-50.0) % Immature Gran # 0.08 H (0.00-0.04) X 10*3/uL Neutrophils # 12.12 H (1.80-7.70) X 10*3/uL Lymphocytes # 0.73 L (0.90-5.00) X 10*3/uL Eosinophils # 0 L (0.04-0.35) X 10*3/uL Sodium 148 H (135-145) mmol/L Potassium 3.0 L 3.3 L (3.5-5.5) mmol/L BUN 50.1 H (9.0-27.0) mg/dL Creatinine 3.1 H (0.6-1.5) mg/dL Est GFR (CKD-EPI)AfAm 20.3 L (60.0-200.0) Est GFR (CKD-EPI)NonAf 17.5 L (60.0-200.0) Glucose 117 H (70-110) mg/dL Calcium 8.6 L (8.7-10.3) mg/dL Microbiology - Last 24 Hours (Table) 03/19/22 15:25 Blood Culture - Preliminary Blood No Growth after 24 hours 03/16/22 07:54 Blood Culture - Preliminary Blood No Growth after 96 hours 03/16/22 07:54 Blood Culture - Preliminary Blood No Growth after 96 hours Assessment and Plan Assessment: Encephalopathy likely due to underlying metabolic encephalopath/dehydration. Mentation is improving. Acute kidney insufficiency Acute hypernatremia likely due to dehydration Sacral decubitus ulcer Benign prostatic hyperplasia Hypertension Urinary Tract infection Plan: Pending routine EEG since the patient has confusion to rule out any seizure or epileptiform discharges (unlikely seizures) Pending folate level. If the patient mentation does not improve can consider MRI of the brain to rule out any acute or subacute ischemic stroke not seen on the CAT scan. ID team is on board Nephrology team is on board We'll defer the rest of the medical management to primary team Plan discussed with the patient's nurse Besides above, no additional work-up from neurological perspective. He is clinically improving the past two days. Time with Patient: Less than 30
--- NOTE | 2022-03-21 11:00 | P.PN ---
Subjective Patient is seen in follow for acute kidney injury. Has Vences catheter. Urine output over 3 L in the last 24 hours. Blood pressure has been high. Resting in bed. Not a reliable historian. Past swallow eval this morning and will be started on oral diet today. Receiving IV fluids. Vital signs are stable. Blood pressure high. General: Awake. No acute distress. HEENT: Head exam is unremarkable. LUNGS: Breath sounds decreased. HEART: Rate and Rhythm are regular. ABDOMEN: Soft, no distention. EXTREMITITES: No edema. Objective - Vital Signs Vital signs: Vital Signs Temp 97.2 F L 03/21/22 04:30 Pulse 68 03/21/22 04:30 Resp 18 03/21/22 04:30 BP 182/94 03/21/22 04:30 Pulse Ox 96 03/21/22 04:30 FiO2 Intake & Output 03/20/22 03/21/22 03/21/22 18:59 06:59 18:59 Intake Total 200 Output Total 2250 900 Balance -2049 Intake: Intake, IV Titration 200 Amount Potassium Chloride 20 meq 200 In Water For Injection 1 100ml.bag @ 50 mls/hr IVPB Q2H [facility] Rx#: [id number] Output: Urine 2250 900 Other: Voiding Method Indwelling Catheter Indwelling Catheter - Labs CBC & Chem 7: 03/20/22 05:32 03/20/22 20:54 Labs: Abnormal Lab Results - Last 24 Hours (Table) 03/20/22 Range/Units 20:54 Potassium 3.3 L (3.5-5.1) mmol/L Microbiology - Last 24 Hours (Table) 03/16/22 07:54 Blood Culture - Preliminary Blood No Growth after 120 hours 03/16/22 07:54 Blood Culture - Preliminary Blood No Growth after 120 hours 03/19/22 15:25 Blood Culture - Preliminary Blood No Growth after 24 hours Assessment and Plan Plan: Assessment: 1. Acute kidney injury secondary to ATN secondary to infection and vancomycin toxicity. creatinine 0.5 in February 2022. Nonoliguric. Vancomycin level 33.5 dated 03/16/2022. No hydronephrosis noted kidney ultrasound. UA fairly benign. 2. Hypernatremia from lack of oral water intake. 3. Hypokalemia from poor intake. Being replaced. 4. Benign hypertension. 5. UTI and sacral ulcer on antibiotics. ID following. Plan: Maintain normal saline at 50 mL an hour. Will change to D5W if sodium today. Potassium being replaced. Oral intake to be started today. Avoid nephrotoxins. Continue to monitor renal function and urine output. Add metoprolol.
[2022-03-21] MEDS: FOLIC ACID 1 MG TAB PO SCH (12:36)
[2022-03-21] MEDS: METOPROLOL TARTRATE 25 MG TAB PO SCH ×2 (12:36→20:41)
--- NOTE | 2022-03-21 14:07 | P.PN ---
Subjective Progress Note Date: 03/21/22 This is a pleasant 81-year-old male was recently treated for sacral gross ulcers patient was discharged on cefepime and vancomycin for Pseudomonas and Methylin recent staph aureus from the wounds. Patient was sent back to the hospital from senior living because of altered mental status patient is found to have acute renal failure patient is alert oriented 1-2. Patient urine analysis was done which showed large leukocyte esterase moderate budding yeasts. 03/17/2022 Patient is seen in follow-up this morning. On IV antibiotics with ID consulted. Patient is continued on cefepime and vancomycin has been discontinued. Patient continues to be confused and altered although somewhat following commands when speaking to. Patient is not eating very much and again remains confused. Patient does have a stage II decubitus ulcer noted on exam and will continue with wound care per ID recommendations and offloading with frequent position changes. WBC is within normal limits at 8.48 and hemoglobin is stable at 11.1, sodium is elevated at 141 with a potassium of 3.2 and kidney functions are worsening with a BUN of 43.1 and creatinine is 3.0 today. Nephrology is consulted and urine cultures currently are pending. Patient does continue with an indwelling Vences catheter which has been replaced. Urine appears less concentrated and clear on exam. 03/18/2022 Patient is seen and evaluated in follow-up continues to be confused although appears somewhat more alert today than yesterday. Labs reviewed today and white count remains normal at 10.0, hemoglobin is 12.5, sodium is 142 with a potassium of 3.1, BUN is elevated at 48 and creatinine is 3.05 with a magnesium of 2.0. Urine culture showing normal deborah and antibiotics were discontinued with a repeat urinalysis ordered with ID following closely. Patient was maintained on cefepime. Potassium low at 3.1 and replaced per protocol. Patient is not tolerating oral intake with concerns for aspiration and will obtain chest x-ray. Patient per nursing staff is not taking medications by mouth as well. Patient does have indwelling Vences catheter and urine appears clear and improved from yesterday. Patient is maintained on normal saline at 100 mL per hour and recommend to continue with. Follow-up labs in the a.m. Nephrology following. Afebrile and continues to be significantly weak. Recommend continue with local wound care. 03/21/2022 Patient is seen and evaluated in follow-up this morning and mentation is somewhat improved although patient continues with confusion. Patient was admitted with acute renal failure vancomycin toxicity with concerns for pneumonia. Patient is maintained on IV antibiotics in the form of Zosyn along with gentle IV hydration in the form of a banana bag and tolerating. Nephrology following along with neurology. Blood pressure elevated being started on metoprolol. Potassium found to be low at 3.0 being replaced per protocol and will follow-up with repeat labs. Speech to reevaluate the patient today for possible oral diet with possible modified barium swallow study. Recommend cont inue with aspiration precautions with supervision with meals and had of the bed elevated 30-45 at all times. We'll continue DuoNeb treatments along with IV antibiotics. Afebrile and no reports of chest pain or shortness of breath noted. REVIEW OF SYSTEMS: Unable to obtain as patient is confused PHYSICAL EXAMINATION: GENERAL: The patient is alert and oriented x1-2,. Confused although appears somewhat improved from yesterday. Well developed, well nourished. HEENT: Pupils are round and equally reacting to light. EOMI. No scleral icterus. No conjunctival pallor. Normocephalic, atraumatic. No pharyngeal erythema. No thyromegaly. CARDIOVASCULAR: S1 and S2 muffled PULMONARY: Diminished breath sounds bilaterally with some scattered rhonchi and crackles noted ABDOMEN: Soft, nontender, nondistended, normoactive bowel sounds. No palpable organomegaly. MUSCULOSKELETAL: No joint swelling or deformity. EXTREMITIES: No cyanosis, clubbing, or pedal edema. NEUROLOGICAL stage II sacral decubitus ulcers. Patient has a Vences catheter that was replaced. SKIN: No rashes. Assessment: -Acute metabolic encephalopathy most likely secondary from acute renal failure secondary to vancomycin toxicity -Left lower lobe pneumonia, possibly aspiration, present on admission -Stage II Sacral decubitus ulcers 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 -Acute kidney injury nonoliguric secondary to vancomycin toxicity as well as possible urinary retention requiring indwelling Vences catheter -Acute urinary tract infection, present on admission most likely secondary to indwelling Vences catheter -Hypokalemia -benign prostatic hypertrophy -Diabetes mellitus, type II, insulin-dependent -Coronary artery disease -Gastroesophageal reflux disease -Hyperlipidemia -Hypertension -DVT prophylaxis: Subcutaneous heparin -Full code Plan: Recommend to continue with local wound care and antibiotic treatment per infectious disease recommendations. Patient is maintained on IV Zosyn with risk for aspiration pneumonia of the left lower lobe and speech following the patient awaiting repeat evaluation today as patient's mentation is improving. Recommend modified barium swallow study and also highly recommend aspiration precautions with supervised meals and had of the bed elevated 45 at all times. Neurology following attempting EEG which is pending at this time Recommend to continue with local wound care and offloading with frequent position changes of the sacral area. Nephrology following and patient is maintained on IV hydration and adding metoprolol as patient's blood pressure is elevated recommend follow-up labs Case management/social work following and PT/OT therapy daily. Will be returning to ECF once stabilized and discharged. Due to multiple complex medical issues, prognosis is guarded. The impression and plan of care has been dictated by Jade Junior, Nurse Practitioner as directed. Dr. Domingo MD I have performed a history and examination and MDM of this patient, discussed the same with the dictator, and agree with the dictator's assessment and plan as written ,documented as a scribe. Based on total visit time, I have performed more than 50% of the visit. Objective - Vital Signs Vital signs: Vital Signs Temp 97.2 F L 03/21/22 04:30 Pulse 68 03/21/22 04:30 Resp 18 03/21/22 04:30 BP 182/94 03/21/22 04:30 Pulse Ox 96 03/21/22 04:30 FiO2 Intake & Output 03/20/22 03/21/22 03/21/22 18:59 06:59 18:59 Intake Total 200 Output Total 2250 900 Balance -2049 Intake: Intake, IV Titration 200 Amount Potassium Chloride 20 meq 200 In Water For Injection 1 100ml.bag @ 50 mls/hr IVPB Q2H [facility] Rx#: [id number] Output: Urine 2250 900 Other: Voiding Method Indwelling Catheter Indwelling Catheter - Labs CBC & Chem 7: 03/20/22 05:32 03/20/22 20:54 Labs: Abnormal Lab Results - Last 24 Hours (Table) 03/20/22 Range/Units 20:54 Potassium 3.3 L (3.5-5.1) mmol/L Microbiology - Last 24 Hours (Table) 03/16/22 07:54 Blood Culture - Preliminary Blood No Growth after 120 hours 03/16/22 07:54 Blood Culture - Preliminary Blood No Growth after 120 hours 03/19/22 15:25 Blood Culture - Preliminary Blood No Growth after 24 hours
[2022-03-21 14:49] LABS: African American GFR (CKD) 22 (>60 ml/min/1.73 sqM); Anion Gap 6 mmol/L; Blood Urea Nitrogen 61 mg/dL (9-20); Calcium 8.4 mg/dL (8.4-10.2); Carbon Dioxide 32 mmol/L (22-30); Chloride 109 mmol/L (98-107); Glucose 129 mg/dL (74-99); Non-African American GFR(CKD) 19 (>60 ml/min/1.73 sqM); Potassium 3.2 mmol/L (3.5-5.1); Sodium 147 mmol/L (137-145)
[2022-03-21] MEDS ORDERED: Potassium Replacement Protocol 1 EACH MISC MISCELLANE PRN (15:08)
[2022-03-21] MEDS: SODIUM CHLORIDE 0.9% 1,000 ML with THIAMINE 100 MG, FOLIC ACID 1 MG IV SCH ×3 (16:32)
[2022-03-21] MEDS: DEXTROSE 5% IN WATER 1,000 ML IV SCH (16:32)
--- NOTE | 2022-03-22 03:29 | EEG ---
ELECTROENCEPHALOGRAM REPORT CLINICAL HISTORY: This is an 81-year-old gentleman with altered mental status. The video EEG is obtained to evaluate for seizure epileptiform activity. RELEVANT MEDICATION: The patient is not on any antiepileptic drugs. EEG TYPE: A routine 21-channel EEG is performed with video using the 10/20 electrode placement system. DESCRIPTION: Wakefulness and drowsiness are obtained. During awake state, the background consists of leg-re-qjajmqva voltage of 6 to 7 hertz activity that is well modulated, well sustained. At times, the background consists of diffuse nonrhythmic delta activity. There is no physiological stage 2 sleep architecture. There is no focal slowing. INTERICTAL AND ICTAL: None. ACTIVATION PROCEDURE: Photic stimulation did not evoke a posterior driving response. There is no abnormality during the photic stimulation. Hyperventilation is not performed. CLINICAL INTERPRETATION: This is an abnormal routine EEG. The background slowing is suggestive of mild-to- moderate encephalopathy. Otherwise, there is no focal slowing, epileptiform discharges, or seizure on the EEG. Clinical correlation is recommended. MMANN / ALONSO: [id number] / MTDD
[2022-03-22] MEDS: DEXTROSE 5% IN WATER 1,000 ML IV SCH ×2 (05:35→19:41)
[2022-03-22] MEDS ORDERED: Potassium Replacement Protocol 1 EACH MISC MISCELLANE PRN (07:03)
[2022-03-22] MEDS: IPRATROPIUM-ALBUTEROL 3 ML NEB INHALATION SCH ×3 (07:45→21:57)
[2022-03-22] MEDS ORDERED: POTASSIUM CHLORIDE ER 20 MEQ TAB.ER PO SCH (08:00)
[2022-03-22] MEDS: HEPARIN SODIUM,PORCINE/PF 5,000 UNIT/0.5 ML SYRINGE SQ SCH ×2 (08:21→20:38)
[2022-03-22] MEDS: PIPERACILLIN-TAZOBACTAM 3.375 GM in SODIUM CHLORIDE 0.9% 100 ML IVPB SCH ×2 (08:21→20:37)
[2022-03-22] MEDS: amLODIPine 5 MG TAB PO SCH ×2 (08:22→20:38)
[2022-03-22] MEDS: ASPIRIN 81 MG PO SCH (08:22)
[2022-03-22] MEDS: METOPROLOL TARTRATE 25 MG TAB PO SCH ×2 (08:23→20:38)
[2022-03-22] MEDS: FINASTERIDE 5 MG TAB PO SCH (08:23)
[2022-03-22] MEDS: MULTIVITAMINS, THERA 1 EACH TAB PO SCH (08:23)
[2022-03-22] MEDS: THIAMINE 100 MG TAB PO SCH ×2 (08:23→17:40)
[2022-03-22] MEDS: TAMSULOSIN 0.4 MG CAP.ER.24H PO SCH (08:23)
--- NOTE | 2022-03-22 10:40 | P.PN ---
Subjective Patient is seen in follow for acute kidney injury. Has Vences catheter. Nonoliguric. Blood pressure 146/83 this morning. Resting in bed. On 4 L nasal cannula. Receiving D5W. Vital signs are stable. General: Awake. No acute distress. HEENT: Head exam is unremarkable. LUNGS: Breath sounds decreased. HEART: Rate and Rhythm are regular. ABDOMEN: Soft, no distention. EXTREMITITES: No edema. Objective - Vital Signs Vital signs: Vital Signs Temp 98.5 F 03/22/22 05:00 Pulse 64 03/22/22 07:55 Resp 16 03/22/22 05:00 BP 146/83 03/22/22 05:00 Pulse Ox 98 03/22/22 05:00 FiO2 Intake & Output 03/21/22 03/22/22 03/22/22 18:59 06:59 18:59 Intake Total 1535 Output Total 350 575 Balance 1185 -575 Intake: Intake, IV Titration 1475 Amount Dextrose 5% in Water 1, 225 000 ml @ 75 mls/hr IV . [id number] [facility] Rx#:[id number] Piperacillin-Tazobactam 3 100 .375 gm In Sodium Chloride 0.9% 100 ml @ 25 mls/hr IVPB Q12H [facility] Rx# :[id number] Potassium Chloride 10 meq 700 In Water For Injection 1 100ml.bag @ 100 mls/hr IVPB Q1HR [facility] Rx#: [id number] Sodium Chloride 0.9% 1, 450 000 ml @ 50 mls/hr IV . Q20H2M [facility] with Thiamine 100 mg with Folic Acid 1 mg Rx#:[id number] Oral 60 Output: Urine 350 575 Other: Voiding Method Indwelling Catheter Indwelling Catheter - Labs CBC & Chem 7: 03/20/22 05:32 03/21/22 14:18 Labs: Abnormal Lab Results - Last 24 Hours (Table) 03/21/22 Range/Units 14:18 Sodium 147 H (137-145) mmol/L Potassium 3.2 L (3.5-5.1) mmol/L Chloride 109 H (98-107) mmol/L Carbon Dioxide 32 H (22-30) mmol/L BUN 61 H (9-20) mg/dL Creatinine 2.96 H (0.66-1.25) mg/dL Glucose 129 H (74-99) mg/dL Microbiology - Last 24 Hours (Table) 03/16/22 07:54 Blood Culture - Final Blood No Growth after 144 hours 03/16/22 07:54 Blood Culture - Final Blood No Growth after 144 hours 03/19/22 15:25 Blood Culture - Preliminary Blood No Growth after 48 hours Assessment and Plan Plan: Assessment: 1. Acute kidney injury secondary to ATN secondary to infection and vancomycin toxicity. creatinine 0.5 in February 2022. Nonoliguric. Vancomycin level 33.5 dated 03/16/2022. No hydronephrosis noted kidney ultrasound. UA fairly benign. Creatinine peaked at 3.1 this admission and was 2.96 yesterday. 2. Hypernatremia from lack of oral water intake. On D5W. 3. Hypokalemia from poor intake. Replaced. 4. Benign hypertension. Better controlled. 5. UTI and sacral ulcer on antibiotics. ID following. Plan: Maintain D5W. Encouraged oral intake as able to tolerate. Avoid nephrotoxins. Continue to monitor renal function and urine output. Follow-up on labs.
[2022-03-22 10:58] LABS: Basophils # (A) 0.05 X 10*3/uL (0.00-0.10); Basophils % (A) 0.5 %; Eosinophils # (A) 0.01 X 10*3/uL (0.04-0.35); Eosinophils % (A) 0.1 %; HCT 38.3 % (39.6-50.0); HGB 12.5 g/dL (13.0-17.0); Immature Grans, Automated 0.4 %; Lymphocytes # (A) 0.74 X 10*3/uL (0.90-5.00); Lymphocytes % (A) 6.7 %; MCH 31.4 pg (27.0-32.0); MCHC 32.6 g/dL (32.0-37.0); MCV 96.2 fL (80.0-97.0); Mean Platelet Volume 11.4 fL (9.5-12.2); Monocytes % (A) 7.2 %; NRBC Per 100 WBC 0 /100 WBCS (0.0-0.0); Neutrophils # (A) 9.43 X 10*3/uL (1.80-7.70); Neutrophils % (A) 85.1 %; Platelet Count 217 X 10*3/uL (140-440); RBC 3.98 X 10*6/uL (4.40-5.60); WBC 11.07 X 10*3/uL (4.50-10.00)
[2022-03-22 11:17] LABS: African American GFR (CKD) 23.2 (60.0-200.0); Anion Gap 9.3 mmol/L (10.00-18.00); BUN/Creat Ratio 21.42 Ratio (12.00-20.00); Blood Urea Nitrogen 60.2 mg/dL (9.0-27.0); Calcium 8.6 mg/dL (8.7-10.3); Carbon Dioxide 31.1 mmol/L (20.0-27.5); Magnesium 2.2 mg/dL (1.5-2.4); Potassium 3.4 mmol/L (3.5-5.5)
[2022-03-22] MEDS: FOLIC ACID 1 MG TAB PO SCH (11:46)
--- NOTE | 2022-03-22 13:44 | P.PN ---
Subjective Progress Note Date: 03/22/22 The patient is seen at bedside and feels he is doing well. Denies of any new neurological issues. Objective - Vital Signs Vital signs: Vital Signs Temp 97.5 F L 03/22/22 11:32 Pulse 59 L 03/22/22 11:32 Resp 18 03/22/22 11:32 BP 155/74 03/22/22 11:32 Pulse Ox 100 03/22/22 11:32 FiO2 Intake & Output 03/21/22 03/22/22 03/22/22 18:59 06:59 18:59 Intake Total 1535 Output Total 350 575 Balance 1185 -575 Intake: Intake, IV Titration 1475 Amount Dextrose 5% in Water 1, 225 000 ml @ 75 mls/hr IV . [id number] [facility] Rx#:[id number] Piperacillin-Tazobactam 3 100 .375 gm In Sodium Chloride 0.9% 100 ml @ 25 mls/hr IVPB Q12H [facility] Rx# :[id number] Potassium Chloride 10 meq 700 In Water For Injection 1 100ml.bag @ 100 mls/hr IVPB Q1HR [facility] Rx#: [id number] Sodium Chloride 0.9% 1, 450 000 ml @ 50 mls/hr IV . Q20H2M [facility] with Thiamine 100 mg with Folic Acid 1 mg Rx#:[id number] Oral 60 Output: Urine 350 575 Other: Voiding Method Indwelling Catheter Indwelling Catheter - Exam GENERAL: The patient is lying in bed and is not in acute distress. ABDOMEN/GI: Bowel sounds present in all 4 quadrants. No tenderness to palpation throughout. NEUROLOGICAL: Higher mental function: The patient is somewhat sleepy but is awakeable to voice. He is oriented to self, stated the year is 2020 and he was in the hospital. He seems more awake and responsive today compared to the last couple days. He named objects correctly (glasses and pen). Is following simple commands. No neglect or aphasia. Cranial nerves: The pupils are round, equal and reactive to light. Visual morales are full to confrontation throughout.. EOM is tracking me throughout the room. No facial weakness. No dysarthria Motor: The strength is hard to assess individual muscles but lifting all extremities above gravity. SOME OF THE WORK-UP DURING THIS HOSPITAL VISIT CONSISTED OF: Patient creatinine is 3.1 and on presentation was 2.45. By mouth and is also tendon up compared to initial presentation Sodium is 148 Calcium is 8.1 and the most recent is a 0.6 Ammonia is 9 Vitamin B12 is 822 Red blood cell folate is 624 which is considered within normal limits. AST and ALT is within normal limits Repeat CT of the head on 02/16/2022 was reported as no acute bleed or mass effect. [id number] marketed atrophy and moderate chronic ischemic white matter changes. No interval changes since the prior study. I personally could not reviewed the CT of the head because issues with the system Culture is reported as. Skin the fluoroscopy or genital deborah. Routine EEG is abnormal. The background slowing is suggestive of mild to moderate encephalopathy. Otherwise there is no focal slowing, epileptiform discharges or seizure in the EEG - Labs CBC & Chem 7: 03/22/22 06:32 03/22/22 06:32 Labs: Abnormal Lab Results - Last 24 Hours (Table) 03/21/22 03/22/22 03/22/22 Range/Units 14:18 06:32 06:32 WBC 11.07 H (4.50-10.00) X 10*3/uL RBC 3.98 L (4.40-5.60) X 10*6/uL Hgb 12.5 L (13.0-17.0) g/dL Hct 38.3 L (39.6-50.0) % Neutrophils # 9.43 H (1.80-7.70) X 10*3/uL Lymphocytes # 0.74 L (0.90-5.00) X 10*3/uL Eosinophils # 0.01 L (0.04-0.35) X 10*3/uL Sodium 147 H 147 H (137-145) mmol/L Potassium 3.2 L 3.4 L (3.5-5.1) mmol/L Chloride 109 H (98-107) mmol/L Carbon Dioxide 32 H 31.1 H (22-30) mmol/L Anion Gap 9.30 L (10.00-18.00) mmol/L BUN 61 H 60.2 H (9-20) mg/dL Creatinine 2.96 H 2.8 H (0.66-1.25) mg/dL Est GFR (CKD-EPI)AfAm 23.2 L (60.0-200.0) Est GFR (CKD-EPI)NonAf 20.0 L (60.0-200.0) BUN/Creatinine Ratio 21.42 H (12.00-20.00) Ratio Glucose 129 H 122 H (74-99) mg/dL Calcium 8.6 L (8.7-10.3) mg/dL Microbiology - Last 24 Hours (Table) 03/16/22 07:54 Blood Culture - Final Blood No Growth after 144 hours 03/16/22 07:54 Blood Culture - Final Blood No Growth after 144 hours 03/19/22 15:25 Blood Culture - Preliminary Blood No Growth after 48 hours Assessment and Plan Assessment: Encephalopathy likely due to underlying metabolic encephalopath/dehydration. Mentation is improving. Acute kidney insufficiency Acute hypernatremia likely due to dehydration Sacral decubitus ulcer Benign prostatic hyperplasia Hypertension Urinary Tract infection Plan: No seizure on the EEG. CT of the head is negative for any acute ischemia subacute ischemia or bleed. ID team is on board Nephrology team is on board We'll defer the rest of the medical management to primary team Plan discussed with the patient's nurse No additional work-up from neurological perspective. He is clinically improving the past three days. Time with Patient: Less than 30
--- NOTE | 2022-03-22 18:27 | P.PN ---
Subjective Progress Note Date: 03/22/22 This is a pleasant 81-year-old male was recently treated for sacral gross ulcers patient was discharged on cefepime and vancomycin for Pseudomonas and Methylin recent staph aureus from the wounds. Patient was sent back to the hospital from retirement because of altered mental status patient is found to have acute renal failure patient is alert oriented 1-2. Patient urine analysis was done which showed large leukocyte esterase moderate budding yeasts. 03/17/2022 Patient is seen in follow-up this morning. On IV antibiotics with ID consulted. Patient is continued on cefepime and vancomycin has been discontinued. Patient continues to be confused and altered although somewhat following commands when speaking to. Patient is not eating very much and again remains confused. Patient does have a stage II decubitus ulcer noted on exam and will continue with wound care per ID recommendations and offloading with frequent position changes. WBC is within normal limits at 8.48 and hemoglobin is stable at 11.1, sodium is elevated at 141 with a potassium of 3.2 and kidney functions are worsening with a BUN of 43.1 and creatinine is 3.0 today. Nephrology is consulted and urine cultures currently are pending. Patient does continue with an indwelling Dowell catheter which has been replaced. Urine appears less concentrated and clear on exam. 03/18/2022 Patient is seen and evaluated in follow-up continues to be confused although appears somewhat more alert today than yesterday. Labs reviewed today and white count remains normal at 10.0, hemoglobin is 12.5, sodium is 142 with a potassium of 3.1, BUN is elevated at 48 and creatinine is 3.05 with a magnesium of 2.0. Urine culture showing normal deborah and antibiotics were discontinued with a repeat urinalysis ordered with ID following closely. Patient was maintained on cefepime. Potassium low at 3.1 and replaced per protocol. Patient is not tolerating oral intake with concerns for aspiration and will obtain chest x-ray. Patient per nursing staff is not taking medications by mouth as well. Patient does have indwelling Dowell catheter and urine appears clear and improved from yesterday. Patient is maintained on normal saline at 100 mL per hour and recommend to continue with. Follow-up labs in the a.m. Nephrology following. Afebrile and continues to be significantly weak. Recommend continue with local wound care. 03/21/2022 Patient is seen and evaluated in follow-up this morning and mentation is somewhat improved although patient continues with confusion. Patient was admitted with acute renal failure vancomycin toxicity with concerns for pneumonia. Patient is maintained on IV antibiotics in the form of Zosyn along with gentle IV hydration in the form of a banana bag and tolerating. Nephrology following along with neurology. Blood pressure elevated being started on metoprolol. Potassium found to be low at 3.0 being replaced per protocol and will follow-up with repeat labs. Speech to reevaluate the patient today for possible oral diet with possible modified barium swallow study. Recommend cont inue with aspiration precautions with supervision with meals and had of the bed elevated 30-45 at all times. We'll continue DuoNeb treatments along with IV antibiotics. Afebrile and no reports of chest pain or shortness of breath noted. 03/22/2022 Patient is seen in follow-up this morning with mentation improving. Patient is able to answer questions appropriately and follow commands. Patient is sitting up in bed and working with PT/OT currently. Patient being followed by neurology, ID, and nephrology. Kidney functions slightly trending down. Diet being advanced per speech. ID if following and maintained on IV abx. Continue wound care. Patient with indwelling dowell catheter and recommend to remove and trial void. Repeat urine culture is negative as well as blood cultures thus far. Afebrile and denies chest pain or shortness of breath. Chest xray showing some improvement from previous. Recommend PT/OT daily. REVIEW OF SYSTEMS: Unable to obtain as patient is confused PHYSICAL EXAMINATION: GENERAL: The patient is alert and oriented x2,. Confused although appears improved from yesterday. Well developed, well nourished. HEENT: Pupils are round and equally reacting to light. EOMI. No scleral icterus. No conjunctival pallor. Normocephalic, atraumatic. No pharyngeal erythema. No thyromegaly. CARDIOVASCULAR: S1 and S2 muffled PULMONARY: Diminished breath sounds bilaterally with some scattered rhonchi and crackles noted ABDOMEN: Soft, nontender, nondistended, normoactive bowel sounds. No palpable organomegaly. MUSCULOSKELETAL: No joint swelling or deformity. EXTREMITIES: No cyanosis, clubbing, or pedal edema. NEUROLOGICAL stage II sacral decubitus ulcers. Patient has a Dowell catheter that was replaced. SKIN: No rashes. 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 Patient is maintained on IV Zosyn and mentation is improving each day. Diet has been advanced and recommend to continue with aspirations precautions, head of the bed elevated 45 at all times. Neurology following EEG showing no epileptiform discharges. No further neurolo gical work-up Recommend to continue with local wound care and offloading with frequent position changes of the sacral area. Nephrology following and patient is maintained on IV hydration in the form of D5 water for hypernatremia as well as kidney injury, slowly trending down. Patient with indwelling dowell catheter recommend removing and trial void. bladder scan ordered and if retaining over 300 then straight cath, if continuing to retain then may resume indwelling dowell catheter. Mentation is improving and OT at the bedside. Case management/social work following and PT/OT therapy daily. Will be returning to [facility] once stabilized and discharged. Due to multiple complex medical issues, prognosis is guarded. The impression and plan of care has been dictated by Jade Junior, Nurse Practitioner as directed. Dr. Domingo MD I have performed a history and examination and MDM of this patient, discussed the same with the dictator, and agree with the dictator's assessment and plan as written ,documented as a scribe. Based on total visit time, I have performed more than 50% of the visit. Objective - Vital Signs Vital signs: Vital Signs Temp 98.5 F 03/22/22 05:00 Pulse 64 03/22/22 07:55 Resp 16 03/22/22 05:00 BP 146/83 03/22/22 05:00 Pulse Ox 98 03/22/22 05:00 FiO2 Intake & Output 03/21/22 03/22/22 03/22/22 18:59 06:59 18:59 Intake Total 1535 Output Total 350 575 Balance 1185 -575 Intake: Intake, IV Titration 1475 Amount Dextrose 5% in Water 1, 225 000 ml @ 75 mls/hr IV . [id number] [facility] Rx#:[id number] Piperacillin-Tazobactam 3 100 .375 gm In Sodium Chloride 0.9% 100 ml @ 25 mls/hr IVPB Q12H [facility] Rx# :[id number] Potassium Chloride 10 meq 700 In Water For Injection 1 100ml.bag @ 100 mls/hr IVPB Q1HR [facility] Rx#: [id number] Sodium Chloride 0.9% 1, 450 000 ml @ 50 mls/hr IV . Q20H2M [facility] with Thiamine 100 mg with Folic Acid 1 mg Rx#:[id number] Oral 60 Output: Urine 350 575 Other: Voiding Method Indwelling Catheter Indwelling Catheter - Labs CBC & Chem 7: 03/22/22 06:32 03/22/22 06:32 Labs: Abnormal Lab Results - Last 24 Hours (Table) 03/21/22 Range/Units 14:18 Sodium 147 H (137-145) mmol/L Potassium 3.2 L (3.5-5.1) mmol/L Chloride 109 H (98-107) mmol/L Carbon Dioxide 32 H (22-30) mmol/L BUN 61 H (9-20) mg/dL Creatinine 2.96 H (0.66-1.25) mg/dL Glucose 129 H (74-99) mg/dL Microbiology - Last 24 Hours (Table) 03/16/22 07:54 Blood Culture - Final Blood No Growth after 144 hours 03/16/22 07:54 Blood Culture - Final Blood No Growth after 144 hours 03/19/22 15:25 Blood Culture - Preliminary Blood No Growth after 48 hours
[2022-03-22] MEDS: POTASSIUM CHLORIDE ER 20 MEQ TAB.ER PO SCH ×2 (19:44→20:38)
[2022-03-23] MEDS ORDERED: POTASSIUM CHLORIDE ER 20 MEQ TAB.ER PO SCH ×2 (05:00→12:00)
[2022-03-23] MEDS: DEXTROSE 5% IN WATER 1,000 ML IV SCH ×3 (05:29→17:24)
[2022-03-23] MEDS: IPRATROPIUM-ALBUTEROL 3 ML NEB INHALATION SCH ×3 (07:52→20:31)
[2022-03-23] MEDS: THIAMINE 100 MG TAB PO SCH ×2 (09:27→16:58)
[2022-03-23] MEDS: MULTIVITAMINS, THERA 1 EACH TAB PO SCH (09:27)
[2022-03-23] MEDS: METOPROLOL TARTRATE 25 MG TAB PO SCH ×2 (09:27→21:03)
[2022-03-23] MEDS: PIPERACILLIN-TAZOBACTAM 3.375 GM in SODIUM CHLORIDE 0.9% 100 ML IVPB SCH ×2 (09:28→21:03)
[2022-03-23] MEDS: HEPARIN SODIUM,PORCINE/PF 5,000 UNIT/0.5 ML SYRINGE SQ SCH ×2 (09:28→21:03)
[2022-03-23] MEDS: FINASTERIDE 5 MG TAB PO SCH (09:28)
[2022-03-23] MEDS: amLODIPine 5 MG TAB PO SCH ×2 (09:28→21:03)
[2022-03-23] MEDS: ASPIRIN 81 MG PO SCH (09:28)
[2022-03-23] MEDS: TAMSULOSIN 0.4 MG CAP.ER.24H PO SCH (09:28)
--- NOTE | 2022-03-23 09:32 | FL ---
Modified barium swallow. HISTORY: Dysphagia. Modified barium swallow was performed with the department of speech pathology. The patient was prese nted with various consistencies of barium. There is no evidence for aspiration. Mild transient penetration. Failure of inversion of the epiglott is. Full report is to follow from the department of speech pathology. Impression: As above
--- NOTE | 2022-03-23 09:45 | P.PN ---
Subjective Patient is seen in follow for acute kidney injury. Vences catheter removed. Nonoliguric. Hemodynamically stable. Resting in bed. On 3 L nasal cannula. Receiving D5W. Morning labs pending. Oral intake fair. Vital signs are stable. General: Awake. No acute distress. HEENT: Head exam is unremarkable. LUNGS: Breath sounds decreased. HEART: Rate and Rhythm are regular. ABDOMEN: Soft, no distention. EXTREMITITES: No edema. Objective - Vital Signs Vital signs: Vital Signs Temp 97.5 F L 03/23/22 03:53 Pulse 68 03/23/22 08:07 Resp 16 03/23/22 03:53 BP 144/72 03/23/22 03:53 Pulse Ox 100 03/23/22 07:53 FiO2 4 03/23/22 07:53 Intake & Output 03/22/22 03/23/22 03/23/22 18:59 06:59 18:59 Output Total 550 Balance -550 Weight 77.564 kg Output: Urine 550 Other: Voiding Method Indwelling Catheter External Catheter # Bowel Movements 1 - Labs CBC & Chem 7: 03/22/22 06:32 03/23/22 04:28 Labs: Abnormal Lab Results - Last 24 Hours (Table) 03/22/22 03/22/22 Range/Units 06:32 06:32 WBC 11.07 H (4.50-10.00) X 10*3/uL RBC 3.98 L (4.40-5.60) X 10*6/uL Hgb 12.5 L (13.0-17.0) g/dL Hct 38.3 L (39.6-50.0) % Neutrophils # 9.43 H (1.80-7.70) X 10*3/uL Lymphocytes # 0.74 L (0.90-5.00) X 10*3/uL Eosinophils # 0.01 L (0.04-0.35) X 10*3/uL Sodium 147 H (135-145) mmol/L Potassium 3.4 L (3.5-5.5) mmol/L Carbon Dioxide 31.1 H (20.0-27.5) mmol/L Anion Gap 9.30 L (10.00-18.00) mmol/L BUN 60.2 H (9.0-27.0) mg/dL Creatinine 2.8 H (0.6-1.5) mg/dL Est GFR (CKD-EPI)AfAm 23.2 L (60.0-200.0) Est GFR (CKD-EPI)NonAf 20.0 L (60.0-200.0) BUN/Creatinine Ratio 21.42 H (12.00-20.00) Ratio Glucose 122 H (70-110) mg/dL Calcium 8.6 L (8.7-10.3) mg/dL Microbiology - Last 24 Hours (Table) 03/19/22 15:25 Blood Culture - Preliminary Blood No Growth after 72 hours 03/16/22 07:54 Blood Culture - Final Blood No Growth after 144 hours 03/16/22 07:54 Blood Culture - Final Blood No Growth after 144 hours Assessment and Plan Plan: Assessment: 1. Acute kidney injury secondary to ATN secondary to infection and vancomycin toxicity. creatinine 0.5 in February 2022. Nonoliguric. Vancomycin level 33.5 dated 03/16/2022. No hydronephrosis noted kidney ultrasound. UA fairly benign. Creatinine peaked at 3.1 this admission and was 2.8 yesterday. 2. Hypernatremia from lack of oral water intake. On D5W. 3. Hypokalemia from poor intake. Replaced. Better. 4. Benign hypertension. Stable. 5. UTI and sacral ulcer on antibiotics. ID following. Plan: Maintain D5W. Encouraged oral intake as able to tolerate. Avoid nephrotoxins. Continue to monitor renal function and urine output. Follow-up on labs.
[2022-03-23 11:30] LABS: African American GFR (CKD) 22.3 (60.0-200.0); Anion Gap 9.3 mmol/L (10.00-18.00); BUN/Creat Ratio 23.66 Ratio (12.00-20.00); Basophils # (A) 0.04 X 10*3/uL (0.00-0.10); Basophils % (A) 0.4 %; Blood Urea Nitrogen 68.6 mg/dL (9.0-27.0); Calcium 8.4 mg/dL (8.7-10.3); Carbon Dioxide 30.7 mmol/L (20.0-27.5); Eosinophils # (A) 0.07 X 10*3/uL (0.04-0.35); Eosinophils % (A) 0.6 %; HGB 12.1 g/dL (13.0-17.0); Immature Grans, Automated 0.2 %; Lymphocytes # (A) 0.67 X 10*3/uL (0.90-5.00); Lymphocytes % (A) 5.9 %; MCH 31.3 pg (27.0-32.0); MCHC 31.8 g/dL (32.0-37.0); MCV 98.2 fL (80.0-97.0); Magnesium 2.3 mg/dL (1.5-2.4); Mean Platelet Volume 11.6 fL (9.5-12.2); Monocytes # (A) 0.61 X 10*3/uL (0.20-1.00); Monocytes % (A) 5.4 %; NRBC Per 100 WBC 0 /100 WBCS (0.0-0.0); Neutrophils # (A) 9.96 X 10*3/uL (1.80-7.70); Neutrophils % (A) 87.5 %; Non-African American GFR(CKD) 19.3 (60.0-200.0); Platelet Count 214 X 10*3/uL (140-440); Potassium 3.9 mmol/L (3.5-5.5); RBC 3.87 X 10*6/uL (4.40-5.60); RDW 12.9 % (11.5-14.5); WBC 11.37 X 10*3/uL (4.50-10.00)
[2022-03-23] MEDS ORDERED: Potassium Replacement Protocol 1 EACH MISC MISCELLANE PRN (11:44)
[2022-03-23] MEDS: FOLIC ACID 1 MG TAB PO SCH (13:38)
--- NOTE | 2022-03-23 16:01 | P.PN ---
Subjective Progress Note Date: 03/23/22 This is a pleasant 81-year-old male was recently treated for sacral gross ulcers patient was discharged on cefepime and vancomycin for Pseudomonas and Methylin recent staph aureus from the wounds. Patient was sent back to the hospital from detention because of altered mental status patient is found to have acute renal failure patient is alert oriented 1-2. Patient urine analysis was done which showed large leukocyte esterase moderate budding yeasts. 03/17/2022 Patient is seen in follow-up this morning. On IV antibiotics with ID consulted. Patient is continued on cefepime and vancomycin has been discontinued. Patient continues to be confused and altered although somewhat following commands when speaking to. Patient is not eating very much and again remains confused. Patient does have a stage II decubitus ulcer noted on exam and will continue with wound care per ID recommendations and offloading with frequent position changes. WBC is within normal limits at 8.48 and hemoglobin is stable at 11.1, sodium is elevated at 141 with a potassium of 3.2 and kidney functions are worsening with a BUN of 43.1 and creatinine is 3.0 today. Nephrology is consulted and urine cultures currently are pending. Patient does continue with an indwelling Dowell catheter which has been replaced. Urine appears less concentrated and clear on exam. 03/18/2022 Patient is seen and evaluated in follow-up continues to be confused although appears somewhat more alert today than yesterday. Labs reviewed today and white count remains normal at 10.0, hemoglobin is 12.5, sodium is 142 with a potassium of 3.1, BUN is elevated at 48 and creatinine is 3.05 with a magnesium of 2.0. Urine culture showing normal deborah and antibiotics were discontinued with a repeat urinalysis ordered with ID following closely. Patient was maintained on cefepime. Potassium low at 3.1 and replaced per protocol. Patient is not tolerating oral intake with concerns for aspiration and will obtain chest x-ray. Patient per nursing staff is not taking medications by mouth as well. Patient does have indwelling Dowell catheter and urine appears clear and improved from yesterday. Patient is maintained on normal saline at 100 mL per hour and recommend to continue with. Follow-up labs in the a.m. Nephrology following. Afebrile and continues to be significantly weak. Recommend continue with local wound care. 03/21/2022 Patient is seen and evaluated in follow-up this morning and mentation is somewhat improved although patient continues with confusion. Patient was admitted with acute renal failure vancomycin toxicity with concerns for pneumonia. Patient is maintained on IV antibiotics in the form of Zosyn along with gentle IV hydration in the form of a banana bag and tolerating. Nephrology following along with neurology. Blood pressure elevated being started on metoprolol. Potassium found to be low at 3.0 being replaced per protocol and will follow-up with repeat labs. Speech to reevaluate the patient today for possible oral diet with possible modified barium swallow study. Recommend cont inue with aspiration precautions with supervision with meals and had of the bed elevated 30-45 at all times. We'll continue DuoNeb treatments along with IV antibiotics. Afebrile and no reports of chest pain or shortness of breath noted. 03/22/2022 Patient is seen in follow-up this morning with mentation improving. Patient is able to answer questions appropriately and follow commands. Patient is sitting up in bed and working with PT/OT currently. Patient being followed by neurology, ID, and nephrology. Kidney functions slightly trending down. Diet being advanced per speech. ID if following and maintained on IV abx. Continue wound care. Patient with indwelling dowell catheter and recommend to remove and trial void. Repeat urine culture is negative as well as blood cultures thus far. Afebrile and denies chest pain or shortness of breath. Chest xray showing some improvement from previous. Recommend PT/OT daily. 03/23/2022 Patient is seen in follow-up this morning currently sitting up in the chair. Patient was evaluated by speech therapy and has changed diet to pured diet with thickened liquids and tolerating well. Patient mentation is improving and also has had indwelling Dowell catheter removed and is voiding. Recommend continue Flomax. Nephrology following and patient is maintained on D5 and water and sodium improving kidney functions remain elevated although stable. Patient is voiding and will continue to monitor closely for any retention. Recommend repeat labs in the a.m. and encouraged to increase activity as tolerated. Encouraged oral intake with supervision and aspiration precautions. Review of systems: Constitutional: No reports of fatigue, fever, or chills Cardiovascular: No reports of chest pain or palpitations Respiratory: No reports of shortness of breath or cough GI: No reports of nausea, vomiting, or diarrhea, reports being thirsty and requesting water : No reports of dysuria or retention Neurovascular: reports of weakness All medications have been reviewed PHYSICAL EXAMINATION: GENERAL: The patient is alert and oriented x2,. Mentation is improving daily. Well developed, well nourished. HEENT: Pupils are round and equally reacting to light. EOMI. No scleral icterus. No conjunctival pallor. Normocephalic, atraumatic. No pharyngeal erythema. No thyromegaly. CARDIOVASCULAR: S1 and S2 muffled PULMONARY: Diminished breath sounds bilaterally with some scattered rhonchi and crackles noted ABDOMEN: Soft, nontender, nondistended, normoactive bowel sounds. No palpable organomegaly. MUSCULOSKELETAL: No joint swelling or deformity. EXTREMITIES: No cyanosis, clubbing, or pedal edema. NEUROLOGICAL awake and alert and oriented 2, responding appropriately to questions and commands. Diffusely weak SKIN: No rashes. stage II sacral decubitus ulcers. Assessment: -Acute metabolic encephalopathy most likely secondary from acute renal failure secondary to vancomycin toxicity -Left lower lobe pneumonia, possibly aspiration, present on admission -Stage II Sacral decubitus ulcers 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 -Acute kidney injury nonoliguric secondary to vancomycin toxicity as well as possible urinary retention requiring indwelling Dowell catheter -Acute urinary tract infection, present on admission most likely secondary to indwelling Dowell catheter -Hypokalemia, improved -Hypernatremia likely secondary poor oral intake -benign prostatic hypertrophy -Diabetes mellitus, type II, insulin-dependent -Coronary artery disease -Gastroesophageal reflux disease -Hyperlipidemia -Hypertension -DVT prophylaxis: Subcutaneous heparin -Full code Plan: Recommend to continue with local wound care and antibiotic treatment per infectious disease recommendations. Patient is maintained on IV Zosyn and mentation is improving each day. Diet has been advanced and recommend to continue with aspirations precautions, head of the bed elevated 45 at all times. Patient underwent modified barium swallow study with speech today. Neurology following EEG showing no epileptiform discharges. No further neurological work-up Recommend to continue with local wound care and offloading with frequent position changes of the sacral area. Nephrology following and patient is maintained on IV hydration in the form of D5 water for hypernatremia as well as kidney injury, slowly trending down. Patient with indwelling dowell catheter is been removed and patient is voiding. Patient is incontinent and using external catheter and recommend to monitor closely for any signs of retention and bladder scan as needed. Mentation is improving Case management/social work following and PT/OT therapy daily. Will be returning to ECF once stabilized and discharged. Due to multiple complex medical issues, prognosis is guarded. Possible discharge in 24-48 hours. The impression and plan of care has been dictated by Jade Junior, Nurse Practitioner as directed. Dr. Domingo MD I have performed a history and examination and MDM of this patient, discussed the same with the dictator, and agree with the dictator's assessment and plan as written ,documented as a scribe. Based on total visit time, I have performed more than 50% of the visit. Objective - Vital Signs Vital signs: Vital Signs Temp 97.7 F 03/23/22 14:31 Pulse 68 03/23/22 14:31 Resp 18 03/23/22 14:31 BP 116/65 03/23/22 14:31 Pulse Ox 96 03/23/22 14:31 FiO2 4 03/23/22 07:53 Intake & Output 03/22/22 03/23/22 03/23/22 18:59 06:59 18:59 Output Total 550 Balance -550 Weight 77.564 kg Output: Urine 550 Other: Voiding Method Indwelling Catheter External Catheter External Catheter # Bowel Movements 1 - Labs CBC & Chem 7: 03/23/22 04:28 03/23/22 04:28 Labs: Abnormal Lab Results - Last 24 Hours (Table) 03/23/22 03/23/22 Range/Units 04:28 04:28 WBC 11.37 H (4.50-10.00) X 10*3/uL RBC 3.87 L (4.40-5.60) X 10*6/uL Hgb 12.1 L (13.0-17.0) g/dL Hct 38.0 L (39.6-50.0) % MCV 98.2 H (80.0-97.0) fL MCHC 31.8 L (32.0-37.0) g/dL Neutrophils # 9.96 H (1.80-7.70) X 10*3/uL Lymphocytes # 0.67 L (0.90-5.00) X 10*3/uL Carbon Dioxide 30.7 H (20.0-27.5) mmol/L Anion Gap 9.30 L (10.00-18.00) mmol/L BUN 68.6 H (9.0-27.0) mg/dL Creatinine 2.9 H (0.6-1.5) mg/dL Est GFR (CKD-EPI)AfAm 22.3 L (60.0-200.0) Est GFR (CKD-EPI)NonAf 19.3 L (60.0-200.0) BUN/Creatinine Ratio 23.66 H (12.00-20.00) Ratio Glucose 112 H (70-110) mg/dL Calcium 8.4 L (8.7-10.3) mg/dL Microbiology - Last 24 Hours (Table) 03/19/22 15:25 Blood Culture - Preliminary Blood No Growth after 72 hours
[2022-03-24] MEDS: THIAMINE 100 MG TAB PO SCH ×2 (06:13→18:22)
[2022-03-24 07:43] LABS: Basophils % (A) 0 %; Eosinophils # (A) 0.4 k/uL (0-0.7); Eosinophils % (A) 3 %; HCT 36.8 % (39.0-53.0); HGB 12.3 gm/dL (13.0-17.5); Lymphocytes # (A) 0.7 k/uL (1.0-4.8); Lymphocytes % (A) 6 %; MCH 32.3 pg (25.0-35.0); MCHC 33.4 g/dL (31.0-37.0); MCV 96.5 fL (80.0-100.0); Mean Platelet Volume 11.3; Monocytes # (A) 0.4 k/uL (0-1.0); Monocytes % (A) 4 %; Neutrophils # (A) 9.3 k/uL (1.3-7.7); Neutrophils % (A) 86 %; Platelet Count 194 k/uL (150-450); RBC 3.81 m/uL (4.30-5.90); RDW 12.5 % (11.5-15.5); WBC 10.8 k/uL (3.8-10.6)
[2022-03-24] MEDS: IPRATROPIUM-ALBUTEROL 3 ML NEB INHALATION SCH ×3 (07:58→19:39)
[2022-03-24] MEDS: MULTIVITAMINS, THERA 1 EACH TAB PO SCH (08:54)
[2022-03-24] MEDS: METOPROLOL TARTRATE 25 MG TAB PO SCH ×2 (08:54→20:33)
[2022-03-24] MEDS: amLODIPine 5 MG TAB PO SCH ×2 (08:54→20:33)
[2022-03-24] MEDS: FOLIC ACID 1 MG TAB PO SCH (08:54)
[2022-03-24] MEDS: ASPIRIN 81 MG PO SCH (08:54)
[2022-03-24] MEDS: FINASTERIDE 5 MG TAB PO SCH (08:54)
[2022-03-24] MEDS: PIPERACILLIN-TAZOBACTAM 3.375 GM in SODIUM CHLORIDE 0.9% 100 ML IVPB SCH ×2 (08:54→16:26)
[2022-03-24] MEDS: HEPARIN SODIUM,PORCINE/PF 5,000 UNIT/0.5 ML SYRINGE SQ SCH ×2 (08:54→20:33)
[2022-03-24] MEDS: TAMSULOSIN 0.4 MG CAP.ER.24H PO SCH (08:54)
--- NOTE | 2022-03-24 10:06 | P.PN ---
Subjective Patient is seen in follow for acute kidney injury. Hemodynamically stable. Resting in bed. On room air. D5W stopped last night. Morning labs pending. Oral intake fair. Has been voiding per nurse. Vital signs are stable. General: Awake. No acute distress. HEENT: Head exam is unremarkable. LUNGS: Breath sounds decreased. HEART: Rate and Rhythm are regular. ABDOMEN: Soft, no distention. EXTREMITITES: No edema. Objective - Vital Signs Vital signs: Vital Signs Temp 97.4 F L 03/24/22 05:00 Pulse 66 03/24/22 08:06 Resp 16 03/24/22 05:00 BP 141/75 03/24/22 05:00 Pulse Ox 95 03/24/22 05:00 FiO2 4 03/23/22 07:53 Intake & Output 03/23/22 03/24/22 03/24/22 18:59 06:59 18:59 Output Total 400 Balance -400 Output: Urine 400 Other: Voiding Method External Catheter External Catheter # Bowel Movements 2 - Labs CBC & Chem 7: 03/24/22 07:27 03/23/22 16:03 Labs: Abnormal Lab Results - Last 24 Hours (Table) 03/23/22 03/23/22 03/23/22 Range/Units 04:28 04:28 16:03 WBC 11.37 H (4.50-10.00) X 10*3/uL RBC 3.87 L (4.40-5.60) X 10*6/uL Hgb 12.1 L (13.0-17.0) g/dL Hct 38.0 L (39.6-50.0) % MCV 98.2 H (80.0-97.0) fL MCHC 31.8 L (32.0-37.0) g/dL Neutrophils # 9.96 H (1.80-7.70) X 10*3/uL Lymphocytes # 0.67 L (0.90-5.00) X 10*3/uL Sodium 135 L (137-145) mmol/L Carbon Dioxide 30.7 H (20.0-27.5) mmol/L Anion Gap 9.30 L (10.00-18.00) mmol/L BUN 68.6 H (9.0-27.0) mg/dL Creatinine 2.9 H (0.6-1.5) mg/dL Est GFR (CKD-EPI)AfAm 22.3 L (60.0-200.0) Est GFR (CKD-EPI)NonAf 19.3 L (60.0-200.0) BUN/Creatinine Ratio 23.66 H (12.00-20.00) Ratio Glucose 112 H (70-110) mg/dL Calcium 8.4 L (8.7-10.3) mg/dL 03/24/22 Range/Units 07:27 WBC 10.8 H (4.50-10.00) X 10*3/uL RBC 3.81 L (4.40-5.60) X 10*6/uL Hgb 12.3 L (13.0-17.0) g/dL Hct 36.8 L (39.6-50.0) % MCV (80.0-97.0) fL MCHC (32.0-37.0) g/dL Neutrophils # 9.3 H (1.80-7.70) X 10*3/uL Lymphocytes # 0.7 L (0.90-5.00) X 10*3/uL Sodium (137-145) mmol/L Carbon Dioxide (20.0-27.5) mmol/L Anion Gap (10.00-18.00) mmol/L BUN (9.0-27.0) mg/dL Creatinine (0.6-1.5) mg/dL Est GFR (CKD-EPI)AfAm (60.0-200.0) Est GFR (CKD-EPI)NonAf (60.0-200.0) BUN/Creatinine Ratio (12.00-20.00) Ratio Glucose (70-110) mg/dL Calcium (8.7-10.3) mg/dL Microbiology - Last 24 Hours (Table) 03/19/22 15:25 Blood Culture - Preliminary Blood No Growth after 96 hours Assessment and Plan Plan: Assessment: 1. Acute kidney injury secondary to ATN secondary to infection and vancomycin toxicity. creatinine 0.5 in February 2022. Nonoliguric. Vancomycin level 33.5 dated 03/16/2022. No hydronephrosis noted kidney ultrasound. UA fairly benign. Creatinine peaked at 3.1 this admission and was 2.9 yesterday. 2. Hypernatremia from lack of oral water intake. s/p D5W. 3. Hypokalemia from poor intake. Replaced. Better. 4. Benign hypertension. Stable. 5. UTI and sacral ulcer on antibiotics. ID following. Plan: Currently on normal saline. I will decrease the rate to 50 mL an hour. Encouraged oral intake as able to tolerate. Avoid nephrotoxins. Continue to monitor renal function and urine output. Follow-up on labs.
[2022-03-24 11:25] LABS: African American GFR (CKD) 25.5 (60.0-200.0); Anion Gap 11.9 mmol/L (10.00-18.00); BUN/Creat Ratio 25.85 Ratio (12.00-20.00); Blood Urea Nitrogen 67.2 mg/dL (9.0-27.0); Calcium 8.4 mg/dL (8.7-10.3); Carbon Dioxide 27.1 mmol/L (20.0-27.5); Magnesium 2.1 mg/dL (1.5-2.4); Potassium 3.7 mmol/L (3.5-5.5)
[2022-03-24] MEDS: SODIUM CHLORIDE 0.9% 1,000 ML IV SCH (11:34)
--- NOTE | 2022-03-24 15:13 | P.PN ---
Subjective Progress Note Date: 03/24/22 This is a pleasant 81-year-old male was recently treated for sacral gross ulcers patient was discharged on cefepime and vancomycin for Pseudomonas and Methylin recent staph aureus from the wounds. Patient was sent back to the hospital from care home because of altered mental status patient is found to have acute renal failure patient is alert oriented 1-2. Patient urine analysis was done which showed large leukocyte esterase moderate budding yeasts. 03/17/2022 Patient is seen in follow-up this morning. On IV antibiotics with ID consulted. Patient is continued on cefepime and vancomycin has been discontinued. Patient continues to be confused and altered although somewhat following commands when speaking to. Patient is not eating very much and again remains confused. Patient does have a stage II decubitus ulcer noted on exam and will continue with wound care per ID recommendations and offloading with frequent position changes. WBC is within normal limits at 8.48 and hemoglobin is stable at 11.1, sodium is elevated at 141 with a potassium of 3.2 and kidney functions are worsening with a BUN of 43.1 and creatinine is 3.0 today. Nephrology is consulted and urine cultures currently are pending. Patient does continue with an indwelling Dowell catheter which has been replaced. Urine appears less concentrated and clear on exam. 03/18/2022 Patient is seen and evaluated in follow-up continues to be confused although appears somewhat more alert today than yesterday. Labs reviewed today and white count remains normal at 10.0, hemoglobin is 12.5, sodium is 142 with a potassium of 3.1, BUN is elevated at 48 and creatinine is 3.05 with a magnesium of 2.0. Urine culture showing normal deborah and antibiotics were discontinued with a repeat urinalysis ordered with ID following closely. Patient was maintained on cefepime. Potassium low at 3.1 and replaced per protocol. Patient is not tolerating oral intake with concerns for aspiration and will obtain chest x-ray. Patient per nursing staff is not taking medications by mouth as well. Patient does have indwelling Dowell catheter and urine appears clear and improved from yesterday. Patient is maintained on normal saline at 100 mL per hour and recommend to continue with. Follow-up labs in the a.m. Nephrology following. Afebrile and continues to be significantly weak. Recommend continue with local wound care. 03/21/2022 Patient is seen and evaluated in follow-up this morning and mentation is somewhat improved although patient continues with confusion. Patient was admitted with acute renal failure vancomycin toxicity with concerns for pneumonia. Patient is maintained on IV antibiotics in the form of Zosyn along with gentle IV hydration in the form of a banana bag and tolerating. Nephrology following along with neurology. Blood pressure elevated being started on metoprolol. Potassium found to be low at 3.0 being replaced per protocol and will follow-up with repeat labs. Speech to reevaluate the patient today for possible oral diet with possible modified barium swallow study. Recommend cont inue with aspiration precautions with supervision with meals and had of the bed elevated 30-45 at all times. We'll continue DuoNeb treatments along with IV antibiotics. Afebrile and no reports of chest pain or shortness of breath noted. 03/22/2022 Patient is seen in follow-up this morning with mentation improving. Patient is able to answer questions appropriately and follow commands. Patient is sitting up in bed and working with PT/OT currently. Patient being followed by neurology, ID, and nephrology. Kidney functions slightly trending down. Diet being advanced per speech. ID if following and maintained on IV abx. Continue wound care. Patient with indwelling dowell catheter and recommend to remove and trial void. Repeat urine culture is negative as well as blood cultures thus far. Afebrile and denies chest pain or shortness of breath. Chest xray showing some improvement from previous. Recommend PT/OT daily. 03/23/2022 Patient is seen in follow-up this morning currently sitting up in the chair. Patient was evaluated by speech therapy and has changed diet to pured diet with thickened liquids and tolerating well. Patient mentation is improving and also has had indwelling Dowell catheter removed and is voiding. Recommend continue Flomax. Nephrology following and patient is maintained on D5 and water and sodium improving kidney functions remain elevated although stable. Patient is voiding and will continue to monitor closely for any retention. Recommend repeat labs in the a.m. and encouraged to increase activity as tolerated. Encouraged oral intake with supervision and aspiration precautions. 03/24/2022 Patient seen and evaluated in follow-up this morning currently sitting up in the chair receiving a breathing treatment doing relatively well. Patient being f ollowed by nephrology and kidney functions are stable. Trending down slowly and creatinine is currently 2.6. Sodium is 140 with a potassium of 3.7. Magnesium was found to be 2.1. White blood count is trending down at 10.8 and hemoglobin remained stable. Patient is afebrile denies chest pain or worsening shortness of breath. Plan is for return to [facility] once cleared by consultations in [facility]. Recommend repeat labs in the a.m. and will continue to monitor closely. Planning for discharge in 24 hours and insurance authorization was submitted. Review of systems: Constitutional: No reports of fatigue, fever, or chills Cardiovascular: No reports of chest pain or palpitations Respiratory: No reports of shortness of breath or cough GI: No reports of nausea, vomiting, or diarrhea, reports being thirsty and requesting water : No reports of dysuria or retention Neurovascular: reports of weakness All medications have been reviewed PHYSICAL EXAMINATION: GENERAL: The patient is alert and oriented x2,. Mentation is improving daily. Well developed, well nourished. HEENT: Pupils are round and equally reacting to light. EOMI. No scleral icterus. No conjunctival pallor. Normocephalic, atraumatic. No pharyngeal erythema. No thyromegaly. CARDIOVASCULAR: S1 and S2 muffled PULMONARY: Diminished breath sounds bilaterally with some scattered rhonchi and crackles noted ABDOMEN: Soft, nontender, nondistended, normoactive bowel sounds. No palpable organomegaly. MUSCULOSKELETAL: No joint swelling or deformity. EXTREMITIES: No cyanosis, clubbing, or pedal edema. NEUROLOGICAL awake and alert and oriented 2, responding appropriately to questions and commands. Diffusely weak SKIN: No rashes. stage II sacral decubitus ulcers. Assessment: -Acute metabolic encephalopathy most likely secondary from acute renal failure secondary to vancomycin toxicity -Left lower lobe pneumonia, possibly aspiration, present on admission -Stage II Sacral decubitus ulcers 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 -Acute kidney injury nonoliguric secondary to vancomycin toxicity as well as possible urinary retention requiring indwelling Dowell catheter -Acute urinary tract infection, present on admission most likely secondary to indwelling Dowell catheter -Hypokalemia, improved -Hypernatremia likely secondary poor oral intake -benign prostatic hypertrophy -Diabetes mellitus, type II, insulin-dependent -Coronary artery disease -Gastroesophageal reflux disease -Hyperlipidemia -Hypertension -DVT prophylaxis: Subcutaneous heparin -Full code Plan: Recommend to continue with local wound care and antibiotic treatment per infectious disease recommendations. Patient is maintained on IV Zosyn and mentation is improving each day. Diet has been advanced and recommend to continue with aspirations precautions, head of the bed elevated 45 at all times. Patient underwent modified barium swallow study with speech today. Not actively aspirating although is high risk for it and has chronic epiglottic malfunction. Neurology has cleared the patient for discharge Recommend to continue with local wound care and offloading with frequent position changes of the sacral area. Nephrology following and patient is maintained on IV hydration in the form of D5 water for hypernatremia as well as kidney injury, slowly trending down. Patient is voiding. Patient is incontinent and using external catheter and recommend to monitor closely for any signs of retention and bladder scan as needed. Mentation is improving Case management/social work following and PT/OT therapy daily. Will be returning to ECF once stabilized and discharged. Due to multiple complex medical issues, prognosis is guarded. Possible discharge in 24 hours if insurance authorization is obtained.. The impression and plan of care has been dictated by Jade Junior, Nurse Practitioner as directed. Dr. Domingo MD I have performed a history and examination and MDM of this patient, discussed the same with the dictator, and agree with the dictator's assessment and plan as written ,documented as a scribe. Based on total visit time, I have performed more than 50% of the visit. Objective - Vital Signs Vital signs: Vital Signs Temp 97.8 F 03/24/22 12:10 Pulse 60 03/24/22 12:10 Resp 16 03/24/22 12:10 BP 141/72 03/24/22 12:10 Pulse Ox 100 03/24/22 12:10 FiO2 4 03/23/22 07:53 Intake & Output 03/23/22 03/24/22 03/24/22 18:59 06:59 18:59 Output Total 400 Balance -400 Output: Urine 400 Other: Voiding Method External Catheter External Catheter # Bowel Movements 2 - Labs CBC & Chem 7: 03/24/22 07:27 03/24/22 07:27 Labs: Abnormal Lab Results - Last 24 Hours (Table) 03/23/22 03/24/22 03/24/22 Range/Units 16:03 07:27 07:27 WBC 10.8 H (3.8-10.6) k/uL RBC 3.81 L (4.30-5.90) m/uL Hgb 12.3 L (13.0-17.5) gm/dL Hct 36.8 L (39.0-53.0) % Neutrophils # 9.3 H (1.3-7.7) k/uL Lymphocytes # 0.7 L (1.0-4.8) k/uL Sodium 135 L (137-145) mmol/L BUN 67.2 H (9.0-27.0) mg/dL Creatinine 2.6 H (0.6-1.5) mg/dL Est GFR (CKD-EPI)AfAm 25.5 L (60.0-200.0) Est GFR (CKD-EPI)NonAf 22.0 L (60.0-200.0) BUN/Creatinine Ratio 25.85 H (12.00-20.00) Ratio Calcium 8.4 L (8.7-10.3) mg/dL Microbiology - Last 24 Hours (Table) 03/19/22 15:25 Blood Culture - Preliminary Blood No Growth after 96 hours
[2022-03-25] MEDS: PIPERACILLIN-TAZOBACTAM 3.375 GM in SODIUM CHLORIDE 0.9% 100 ML IVPB SCH ×2 (00:02→08:50)
[2022-03-25] MEDS: SODIUM CHLORIDE 0.9% 1,000 ML IV SCH (04:50)
[2022-03-25] MEDS: IPRATROPIUM-ALBUTEROL 3 ML NEB INHALATION SCH ×2 (07:14→10:43)
[2022-03-25] MEDS: HEPARIN SODIUM,PORCINE/PF 5,000 UNIT/0.5 ML SYRINGE SQ SCH (08:50)
[2022-03-25] MEDS: FINASTERIDE 5 MG TAB PO SCH (08:50)
[2022-03-25] MEDS: METOPROLOL TARTRATE 25 MG TAB PO SCH (08:50)
[2022-03-25] MEDS: amLODIPine 5 MG TAB PO SCH (08:50)
[2022-03-25] MEDS: ASPIRIN 81 MG PO SCH (08:50)
[2022-03-25] MEDS: MULTIVITAMINS, THERA 1 EACH TAB PO SCH (08:50)
[2022-03-25] MEDS: TAMSULOSIN 0.4 MG CAP.ER.24H PO SCH (08:50)
[2022-03-25] MEDS: THIAMINE 100 MG TAB PO SCH (08:51)
--- NOTE | 2022-03-25 10:49 | P.PN ---
Subjective Patient is seen in follow for acute kidney injury. Hemodynamically stable. Resting in bed. On room air. Receiving normal saline at 50 mL an hour. Morning labs pending. Oral intake fair. Has been voiding per nurse. Vital signs are stable. General: Awake. No acute distress. HEENT: Head exam is unremarkable. LUNGS: Breath sounds decreased. HEART: Rate and Rhythm are regular. ABDOMEN: Soft, no distention. EXTREMITITES: No edema. Objective - Vital Signs Vital signs: Vital Signs Temp 97.3 F L 03/25/22 04:40 Pulse 65 03/25/22 08:00 Resp 18 03/25/22 08:00 BP 168/70 03/25/22 04:40 Pulse Ox 96 03/25/22 07:17 FiO2 4 03/23/22 07:53 Intake & Output 03/24/22 03/25/22 03/25/22 18:59 06:59 18:59 Intake Total 620 Output Total 2 Balance 618 Intake: Intake, IV Titration 500 Amount Piperacillin-Tazobactam 3 100 .375 gm In Sodium Chloride 0.9% 100 ml @ 25 mls/hr IVPB Q8HR KEVIN Rx# :[id number] Sodium Chloride 0.9% 1, 400 000 ml @ 50 mls/hr IV . Q20H KEVIN Rx#:[id number] Oral 120 Output: Urine 2 Other: Voiding Method External Catheter External Catheter # Voids 1 - Labs CBC & Chem 7: 03/24/22 07:27 03/24/22 07:27 Labs: Abnormal Lab Results - Last 24 Hours (Table) 03/24/22 Range/Units 07:27 BUN 67.2 H (9.0-27.0) mg/dL Creatinine 2.6 H (0.6-1.5) mg/dL Est GFR (CKD-EPI)AfAm 25.5 L (60.0-200.0) Est GFR (CKD-EPI)NonAf 22.0 L (60.0-200.0) BUN/Creatinine Ratio 25.85 H (12.00-20.00) Ratio Calcium 8.4 L (8.7-10.3) mg/dL Microbiology - Last 24 Hours (Table) 03/19/22 15:25 Blood Culture - Preliminary Blood No Growth after 120 hours Assessment and Plan Plan: Assessment: 1. Acute kidney injury secondary to ATN secondary to infection and vancomycin toxicity. creatinine 0.5 in February 2022. Nonoliguric. Vancomycin level 33.5 dated 03/16/2022. No hydronephrosis noted kidney ultrasound. UA fairly benign. Creatinine peaked at 3.1 this admission and was 2.6 yesterday. 2. Hypernatremia from lack of oral water intake. s/p D5W. 3. Hypokalemia from poor intake. Replaced. Better. 4. Benign hypertension. Stable. 5. UTI and sacral ulcer on antibiotics. ID following. Plan: Maintain normal saline. Encouraged oral intake as able to tolerate. Avoid nephrotoxins. Continue to monitor renal function and urine output. Follow-up on labs. Add scheduled hydralazine 25 mg 3 times daily. Hold for systolic blood pressure less than 120. Repeat BMP and magnesium level 2-3 days postdischarge. Follow up outpatient in 1 week
[2022-03-25] MEDS ORDERED: hydrALAZINE HCL 25 MG TAB PO SCH (11:00)
[2022-03-25 11:04] LABS: African American GFR (CKD) 22.3 (60.0-200.0); Anion Gap 10.6 mmol/L (10.00-18.00); BUN/Creat Ratio 21.93 Ratio (12.00-20.00); Blood Urea Nitrogen 63.6 mg/dL (9.0-27.0); Calcium 8.4 mg/dL (8.7-10.3); Carbon Dioxide 28.4 mmol/L (20.0-27.5); Magnesium 2.1 mg/dL (1.5-2.4); Non-African American GFR(CKD) 19.3 (60.0-200.0); Potassium 3.9 mmol/L (3.5-5.5)
[2022-03-25] MEDS: FOLIC ACID 1 MG TAB PO SCH (11:55)
[2022-03-25 12:04] VITALS: BP 144/72; PULSE 73; RESP 16; TEMP 97.6
--- NOTE | 2022-03-25 12:25 | P.DS ---
Providers Date of admission: 03/16/22 10:03 Expected date of discharge: 03/25/22 Attending physician: Shravan Landry MD Consults: 03/16/22 10:01 Consult Physician Routine Consulting Provider: Willow Dominguez Consult Reason/Comments: UTI/MRSA. Return with AMS. Antibiotic guidance Do you want consulting provider notified?: Yes 03/16/22 11:56 Consult Physician Routine Consulting Provider: Kassi Cavanaugh Consult Reason/Comments: DIOMEDES Do you want consulting provider notified?: Yes 03/20/22 16:18 Consult Physician Routine Consulting Provider: Pierre Barker Consult Reason/Comments: AMS Do you want consulting provider notified?: Already Contacted Primary care physician: Curyr Nair [facility] Course: Final diagnosis -Acute metabolic encephalopathy most likely secondary from acute renal failure secondary to vancomycin toxicity -Left lower lobe pneumonia, possibly aspiration, present on admission -Stage II Sacral decubitus ulcers 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 -Acute kidney injury nonoliguric secondary to vancomycin toxicity as well as possible urinary retention requiring indwelling Vences catheter -Acute urinary tract infection, present on admission most likely secondary to indwelling Vences catheter -Hypokalemia, improved -Hypernatremia likely secondary poor oral intake -benign prostatic hypertrophy -Diabetes mellitus, type II, insulin-dependent -Coronary artery disease -Gastroesophageal reflux disease -Hyperlipidemia -Hypertension -DVT prophylaxis: Subcutaneous heparin -Full code Discharge disposition Patient is being discharged in a stable condition with guarded prognosis to [facility]. Patient will follow-up with Dr. Nair in the outpatient setting upon discharge. Patient is to follow-up with nephrology in 1-2 weeks outpatient. Recommend repeat labs to monitor kidney functions in 2-3 days. Total time taken is greater than 35 minutes. Hospital course This is a 81-year-old male who was recently admitted with increased confusion, altered mental status, possible urinary tract infection and concerns for aspiration pneumonia being closely monitored. Patient also requiring indwelling Vences catheter prior to admission due to retention and catheter has been removed with nephrology following closely as patient's kidney functions are elevated. Patient was maintained on D5 water with improvements in his sodium. Patient also high risk for aspirating underwent modified barium swallow study with epiglottal dysfunction although no sign of aspiration but patient is high risk. Patient was maintained on IV Zosyn and has received adequate antibiotics and have been discontinued. Recommend to continue with dysphagia ground diet nectar thick liquids and one-to-one supervision with meals and no straws with aspiration precautions with head of the bed elevated 30-45 all times. She was continued on breathing treatments along with local wound care. Patient does not currently have a Vences catheter and is voiding with no difficulty recommend continue with Flomax. Patient with significant weakness will be returning to rehab on discharge. Patient has been cleared by consultations with outpatient follow-up. Currently no reports of chest pain, shortness of breath, or palpitations. Patient is afebrile. No reports of nausea or vomiting and patient is tolerating diet. Patient will be going to [facility] today. Guarded prognosis. Physical exam: Gen: This is a 81-year-old male awake, alert and oriented 2-3, thin built, elderly appearing male HEENT: Head is atraumatic, normocephalic. Pupils equal, round. Sclerae is anicteric. NECK: Supple. No JVD. No lymphadenopathy. No thyromegaly. LUNGS: Diminished breath sounds bilaterally with some scattered rhonchi. No intercostal retractions. HEART: Regular rate and rhythm. No murmur. ABDOMEN: Soft. Bowel sounds are present. No masses. No tenderness. EXTREMITIES: No pedal edema. No calf tenderness. NEUROLOGICAL: Patient is awake, alert and oriented x3. Cranial nerves 2 through 12 are grossly intact. Diffusely weak Please refer to medication reconciliation sheet for a list of medications. The impression and plan of care has been dictated by Jade Junior, Nurse Practitioner as directed. Dr. Jorge MD I have performed a history and examination and MDM of this patient, discussed the same with the dictator, and agree with the dictator's assessment and plan as written ,documented as a scribe. Based on total visit time, I have performed more than 50% of the visit. Patient Condition at Discharge: Fair Plan - Discharge Summary Discharge Rx Participant: No New Discharge Prescriptions: New Thiamine [Vitamin B-1] 100 mg PO BID-W/MEALS tab Ipratropium-Albuterol Nebulize [Duoneb 0.5 mg-3 mg/3 ml Soln] 3 ml INHALATION RT-TID each Ipratropium-Albuterol Nebulize [Duoneb 0.5 mg-3 mg/3 ml Soln] 3 ml INHALATION RT-TID PRN each PRN Reason: Shortness Of Breath Or Wheezing Folic Acid 1 mg PO DAILY@1200 tab Metoprolol Tartrate [Lopressor] 25 mg PO BID tab Continue Aspirin 81 mg PO DAILY amLODIPine [Norvasc] 5 mg PO BID Tamsulosin [Flomax] 0.4 mg PO DAILY Finasteride [Proscar] 5 mg PO DAILY Na Phos,M-B/Na Phos,Di-Ba [Fleet Adult] 133 ml RECTAL DAILY PRN PRN Reason: Constipation Simvastatin [Zocor] 20 mg PO HS Acetaminophen Tab [Tylenol] 650 mg PO Q6HR PRN tab PRN Reason: Mild Pain Or Fever > 100.5 bisacodyL [Dulcolax] 10 mg RECTAL DAILY PRN PRN Reason: Constipation Prostat 30 ml PO BID Heparin Sodium,Porcine [Heparin Sodium] 5,000 unit SQ Q12H Multivitamins, Thera [Multivitamin (formulary)] 1 tab PO DAILY Magnesium Hydroxide [Milk of Magnesia] 2,400 mg PO DAILY PRN PRN Reason: Constipation Discontinued Cefepime [Maxipime] 2 gm IVPB Q8H 14 Days #42 each Vancomycin 1,250 mg IVPB Q12H Discharge Medication List Aspirin 81 mg PO DAILY 12/13/14 [History] amLODIPine [Norvasc] 5 mg PO BID 12/13/14 [History] Tamsulosin [Flomax] 0.4 mg PO DAILY 12/05/18 [History] Finasteride [Proscar] 5 mg PO DAILY 09/23/21 [History] Acetaminophen Tab [Tylenol] 650 mg PO Q6HR PRN tab 03/03/22 [Rx] Heparin Sodium,Porcine [Heparin Sodium] 5,000 unit SQ Q12H 03/16/22 [History] Magnesium Hydroxide [Milk of Magnesia] 2,400 mg PO DAILY PRN 03/16/22 [History] Multivitamins, Thera [Multivitamin (formulary)] 1 tab PO DAILY 03/16/22 [History] Na Phos,M-B/Na Phos,Di-Ba [Fleet Adult] 133 ml RECTAL DAILY PRN 03/16/22 [History] Prostat 30 ml PO BID 03/16/22 [History] Simvastatin [Zocor] 20 mg PO HS 03/16/22 [History] bisacodyL [Dulcolax] 10 mg RECTAL DAILY PRN 03/16/22 [History] Folic Acid 1 mg PO DAILY@1200 tab 03/25/22 [Rx] Ipratropium-Albuterol Nebulize [Duoneb 0.5 mg-3 mg/3 ml Soln] 3 ml INHALATION RT-TID each 03/25/22 [Rx] Ipratropium-Albuterol Nebulize [Duoneb 0.5 mg-3 mg/3 ml Soln] 3 ml INHALATION RT-TID PRN each 03/25/22 [Rx] Metoprolol Tartrate [Lopressor] 25 mg PO BID tab 03/25/22 [Rx] Thiamine [Vitamin B-1] 100 mg PO BID-W/MEALS tab 03/25/22 [Rx] Follow up Appointment(s)/Referral(s): Curry Nair MD [Primary Care Provider] - 1-2 Days David Rasmussen DO [STAFF PHYSICIAN] - 1 Week Ambulatory/Diagnostic Orders: Complete Blood Count w/diff [LAB.AMB] Time Frame: 3 Days, Location: None Selected Activity/Diet/Wound Care/Special Instructions: Patient is going to [facility] Activity as tolerated Follow-up with primary care provider Dr. Nair on discharge Follow-up with nephrology in 1-2 weeks Recommend repeat labs to monitor CBC and BMP to monitor kidney functions Recommend continue with DuoNeb treatments Monitor closely for any retention as patient had Vences catheter removed and is voiding, recommend to continue with Flomax Continue aspiration precautions with head of the bed elevated 45 at all times and supervision with meals Continue heart healthy dysphasia level 2 ground diet with nectar thickened liquids and aspiration precautions with no straws and one-to-one supervision with meals Continue local wound care to the buttocks with frequent position changes and offloading, use dry Aquacel silver dressing to keep the area dry Discharge Disposition: TRANSFER TO SNF/ECF
== END 2022-03-25 16:13 | DRG 698 ==
LOC: EC 07:15 → 5NMEDONC 10:03
PROVIDERS: ADMIT Internal Medicine; ATTEND Internal Medicine
DX: T83.518A Infection and inflammatory reaction due to other urinary catheter, initial encounter (principal); G93.41 Metabolic encephalopathy; N17.0 Acute kidney failure with tubular necrosis; J69.0 Pneumonitis due to inhalation of food and vomit; E87.0 Hyperosmolality and hypernatremia; E87.21 Acute metabolic acidosis; E11.9 Type 2 diabetes mellitus without complications; D64.9 Anemia, unspecified; I10 Essential (primary) hypertension; L89.152 Pressure ulcer of sacral region, stage 2; T36.8X5A Adverse effect of other systemic antibiotics, initial encounter; R33.8 Other retention of urine; N40.1 Benign prostatic hyperplasia with lower urinary tract symptoms; E78.5 Hyperlipidemia, unspecified; I25.10 Atherosclerotic heart disease of native coronary artery without angina pectoris; E86.0 Dehydration; R00.1 Bradycardia, unspecified; K21.9 Gastro-esophageal reflux disease without esophagitis; E87.6 Hypokalemia; Y84.6 Urinary catheterization as the cause of abnormal reaction of the patient, or of later complication, without mention of misadventure at the time of the procedure; Z96.89 Presence of other specified functional implants; Z78.1 Physical restraint status; Z86.73 Personal history of transient ischemic attack (TIA), and cerebral infarction without residual deficits; Z87.440 Personal history of urinary (tract) infections; Z95.1 Presence of aortocoronary bypass graft; Z79.899 Other long term (current) drug therapy; Z79.82 Long term (current) use of aspirin; I25.2 Old myocardial infarction; Z91.81 History of falling; Z86.14 Personal history of Methicillin resistant Staphylococcus aureus infection
CPT/HCPCS: 36415; 70450; 71045; 71046; 74230; 76770; 80048; 80053; 80202; 80306; 80320; 81001; 82140; 82607; 82747; 83605; 83735; 84132; 84295; 84484; 85025; 85610; 85730; 87040; 87086; 93005; 94640; 94760; 95816; 96360; 96361; 99285

== ENCOUNTER 2022-03-30 16:00 | Emergency (ER) | payer MEDICARE ==
[2022-03-30 16:11] VITALS: RESP 16; TEMP 98.3
--- NOTE | 2022-03-30 16:51 | CT ---
EXAMINATION TYPE: CT brain cspine wo con CT DLP: 1495.6 mGycm, Automated exposure control for dose reduction was used. DATE OF EXAM: 03/30/2022 4:43 PM COMPARISON: Multiple CT brain's most recent from 522 CLINICAL INDICATION:Male, 81 years old with history of fall, on anticoagulation; Fall, on thinners TECHNIQUE: Brain: Multiple axial CT images of the brain were obtained without IV contrast. Cspine: Axial CT images from the skull base to the inferior aspect of T2 we obtained without intraven ous contrast. Coronal and sagittal reformatted images were also reviewed. FINDINGS: Brain: Extra-axial spaces: No abnormal extra-axial fluid collections. Ventricular system: Dilatation in proportion to cerebral atrophy. Cerebral parenchyma: No acute intraparenchymal hemorrhage or mass effect. The collins-white junction is well differentiated. Scattered hypoattenuating areas are seen within the white matter. Cerebellum: Unremarkable. Mass effect: No evidence of midline shift. Intracranial vasculature: Atherosclerotic calcifications of the intracranial vessels. Soft tissues: Normal. Calvarium/osseous structures: No depressed skull fracture. Paranasal sinuses and mastoid air cells: Clear. Visualized orbits: Bilateral aphakia Cervical spine: Fracture: None. Osseous structures: Multilevel degenerative disc disease changes with endplate spurring and disc oste ophyte complex's. Fixation hardware to the anterior cervical spine extending from C3 to C5. Hardware appears intact. Sternotomy wires are present posterior aspects of the C4 vertebrae demonstrates a mod erate erosive change unclear whether there is prior fixation hardware at this level. Vertebral alignment: Within normal limits. Spinal canal/Neural Foramina: No evidence of significant spinal canal narrowing. No evidence for sign ificant neural foraminal stenosis. Neck soft tissues: Prevertebral soft tissues are within normal limits. Calcification of the nuchal li gament. Other: The airway is patent. The lung apices are clear. IMPRESSION: 1. No acute intracranial process. 2. Nonspecific white matter changes, likely secondary to chronic small vessel ischemic disease. 3. No evidence of cervical spine fracture. 4. Postsurgical changes spine with moderate multilevel degenerative disc disease.
--- NOTE | 2022-03-30 17:03 | ED ---
Fall HPI - General Chief Complaint: Fall Stated Complaint: Fall Time Seen by Provider: 03/30/22 16:14 Source: EMS Mode of arrival: EMS - History of Present Illness Initial Comments: 81-year-old male presents to the emergency department from [facility]. He cannot provide a reliable history. He was recently hospitalized for metabolic encephalopathy secondary from acute renal failure and vancomycin toxicity. The patient sustained a fall and hit the posterior aspect of his head on the ground. He did not have loss of consciousness. He has been receiving heparin injections for DVT prophylaxis. He denies syncope. No headache or visual changes. No neck or back pain. Moving all extremities without difficulty. Transfer to the hospital for CT imaging. Patient denies any chest pain, shortness of breath. No abdominal pain. No pain in his extremities. No other alleviating, precipitating or modifying factors - Related Data Home Medications Medication Instructions Recorded Confirmed Aspirin 81 mg PO DAILY 12/13/14 03/30/22 amLODIPine [Norvasc] 5 mg PO BID 12/13/14 03/30/22 Tamsulosin [Flomax] 0.4 mg PO DAILY 12/05/18 03/30/22 Finasteride [Proscar] 5 mg PO DAILY 09/23/21 03/30/22 Heparin Sodium,Porcine [Heparin 5,000 unit SQ Q12H 03/16/22 03/30/22 Sodium] Magnesium Hydroxide [Milk of 2,400 mg PO Q24H PRN 03/16/22 03/30/22 Magnesia] Multivitamins, Thera [Multivitamin 1 tab PO DAILY 03/16/22 03/30/22 (formulary)] Na Phos,M-B/Na Phos,Di-Ba [Fleet 133 ml RECTAL Q25H PRN 03/16/22 03/30/22 Adult] Prostat 30 ml PO BID 03/16/22 03/30/22 Simvastatin [Zocor] 20 mg PO HS 03/16/22 03/30/22 bisacodyL [Dulcolax] 10 mg RECTAL DAILY PRN 03/16/22 03/30/22 Folic Acid 0.8 mg PO DAILY 03/30/22 03/30/22 Healthshake 120 ml PO BID 03/30/22 03/30/22 Ipratropium-Albuterol Nebulize 3 ml INHALATION RT-Q8H PRN 03/30/22 03/30/22 [Duoneb 0.5 mg-3 mg/3 ml Soln] Ipratropium-Albuterol Nebulize 3 ml INHALATION RT-TID 03/30/22 03/30/22 [Duoneb 0.5 mg-3 mg/3 ml Soln] Thiamine [Vitamin B-1] 100 mg PO BID 03/30/22 03/30/22 Previous Rx's Medication Instructions Recorded Acetaminophen Tab [Tylenol] 650 mg PO Q6HR PRN tab 03/03/22 Metoprolol Tartrate [Lopressor] 25 mg PO BID tab 03/25/22 Allergies Allergy/AdvReac Type Severity Reaction Status Date / Time No Known Allergies Allergy Verified 03/16/22 09:06 Review of Systems ROS Statement: Those systems with pertinent positive or pertinent negative responses have been documented in the HPI. ROS Other: All systems not noted in ROS Statement are negative. 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 Last Myocardial Infarction Date:: 1996 History of Any Multi-Drug Resistant Organisms: None Reported Date of last positivie culture/infection: 02/27/22 MDRO Source:: Buttock Past Surgical History: Back Surgery, Coronary Bypass/CABG, Heart Catheterization Additional Past Surgical History / Comment(s): 1996 CABG 5 vessel, colonoscopy. Past Anesthesia/Blood Transfusion Reactions: No Reported Reaction Past Psychological History: No Psychological Hx Reported Smoking Status: Never smoker Past Alcohol Use History: None Reported Past Drug Use History: None Reported - Past Family History Mother Family Medical History: Coronary Artery Disease (CAD) Additional Family Medical History / Comment(s): CABG Father History Unknown: Yes Additional Family Medical History / Comment(s): Father never went to the doctor. General Exam General appearance: alert, in no apparent distress Head exam: Present: atraumatic, normocephalic, normal inspection, other (no external signs of trauma) Eye exam: Present: normal appearance, PERRL, EOMI. Absent: scleral icterus, conjunctival injection, periorbital swelling ENT exam: Present: normal exam, mucous membranes moist Neck exam: Present: normal inspection. Absent: tenderness, meningismus, lymphadenopathy Respiratory exam: Present: normal lung sounds bilaterally. Absent: respiratory distress, wheezes, rales, rhonchi, stridor Cardiovascular Exam: Present: regular rate, normal rhythm, normal heart sounds. Absent: systolic murmur, diastolic murmur, rubs, gallop, clicks GI/Abdominal exam: Present: soft, normal bowel sounds. Absent: distended, tenderness, guarding, rebound, rigid Extremities exam: Present: normal inspection, full ROM, normal capillary refill. Absent: tenderness, pedal edema, joint swelling, calf tenderness Back exam: Present: normal inspection Neurological exam: Present: alert, oriented X3, CN II-XII intact Psychiatric exam: Present: normal affect, normal mood Skin exam: Present: warm, dry, intact, normal color. Absent: rash Course Vital Signs 03/30/22 03/30/22 16:03 17:06 Temperature 98.3 F Pulse Rate 67 72 Respiratory 16 16 Rate Blood Pressure 156/77 156/88 O2 Sat by Pulse 99 99 Oximetry Medical Decision Making - Medical Decision Making Upon arrival patient is placed in room 7. There are history and physical exam was performed. He is sent for a CT of his brain and cervical spine which fails to demonstrate any acute intracranial process. No cervical fractures. Patient will be transferred back to his facility at this time for which she was agreeable. Patient transported via EMS in stable condition Disposition Clinical Impression: Fall, Concussion without loss of consciousness Disposition: HOME SELF-CARE Condition: Stable Instructions (If sedation given, give patient instructions): Fall Prevention (ED) Additional Instructions: Please follow up with your PCP in 2-4 days. Return to the ED for any new or worsening symptoms Is patient prescribed a controlled substance at d/c from ED?: No Referrals: Prosper Rios DO [Primary Care Provider] - 1-2 days Time of Disposition: 17:03
[2022-03-30 17:13] VITALS: BP 156/88; PULSE 72
== END 2022-03-30 17:52 | disposition home or self-care (01) ==
LOC: EC 16:00
DX: S06.0X0A Concussion without loss of consciousness, initial encounter (principal); I10 Essential (primary) hypertension; I25.2 Old myocardial infarction; I25.10 Atherosclerotic heart disease of native coronary artery without angina pectoris; Z79.82 Long term (current) use of aspirin; Z79.83 Long term (current) use of bisphosphonates; Z79.51 Long term (current) use of inhaled steroids; W18.30XA Fall on same level, unspecified, initial encounter
CPT/HCPCS: 70450; 72125; 99285

== ENCOUNTER 2023-07-20 13:01 | Emergency (ER) | payer MEDICARE ==
--- NOTE | 2023-07-20 13:20 | ED ---
General Adult HPI - General Stated complaint: AMS, Weakness Time Seen by Provider: 07/20/23 13:01 Source: patient, RN notes reviewed, old records reviewed - History of Present Illness Initial comments: This is an 82-year-old male who presents to the emergency department from the custodial patient at the custodial was leaning to the left at breakfast today went and laid him back down in bed when he awoke approximately half an hour ago he seemed to be a little bit confused but according to EMS the hallway and he was alert and oriented x 3 he talked about his picture of his grandson accurately and he has no complaints. Patient states there is no pain patient denies any recent fevers. Patient denies any nausea or vomiting. Patient denies any problems breathing. No one is with the patient's with no further history is available at this time - Related Data Home Medications Medication Instructions Recorded Confirmed Aspirin 81 mg PO DAILY 12/13/14 07/20/23 Tamsulosin [Flomax] 0.4 mg PO DAILY 12/05/18 07/20/23 Finasteride [Proscar] 5 mg PO DAILY 09/23/21 07/20/23 Multivitamins, Thera [Multivitamin 1 tab PO DAILY 03/16/22 07/20/23 (formulary)] Simvastatin [Zocor] 20 mg PO HS 03/16/22 07/20/23 Folic Acid 1 mg PO DAILY 03/30/22 07/20/23 Ipratropium-Albuterol Nebulize 3 ml INHALATION RT-Q6H PRN 03/30/22 07/20/23 [Duoneb 0.5 mg-3 mg/3 ml Soln] Thiamine [Vitamin B-1] 100 mg PO BID 03/30/22 07/20/23 Calcium Carbonate [Calcium] 600 mg PO DAILY 01/04/23 07/20/23 Cholecalciferol [Vitamin D3 (25 25 mcg PO DAILY 01/04/23 07/20/23 Mcg = 1000 Iu)] Ferrous Sulfate [Iron] 325 mg PO DAILY 01/04/23 07/20/23 Saccharomyces Boulardii 250 mg PO BID@0800,1600 01/04/23 07/20/23 [Saccharomycin Df] Acetaminophen Tab [Tylenol] 650 mg PO Q6HR PRN 07/20/23 07/20/23 Melatonin 5 mg PO HS 07/20/23 07/20/23 Omeprazole Magnesium [PriLOSEC OTC] 20 mg PO DAILY 07/20/23 07/20/23 carvediloL [Coreg] 6.25 mg PO BID 07/20/23 07/20/23 Previous Rx's Medication Instructions Recorded Sulfamethox-Tmp 800-160Mg [Bactrim 1 each PO Q12HR #14 tab 07/20/23 DS 800-160 mg] Allergies Allergy/AdvReac Type Severity Reaction Status Date / Time No Known Allergies Allergy Verified 07/20/23 13:20 Review of Systems ROS Statement: Those systems with pertinent positive or pertinent negative responses have been documented in the HPI. ROS Other: All systems not noted in ROS Statement are negative. 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 Last Myocardial Infarction Date:: 1996 History of Any Multi-Drug Resistant Organisms: None Reported Date of last positivie culture/infection: 02/27/22 MDRO Source:: Buttock Past Surgical History: Back Surgery, Coronary Bypass/CABG, Heart Catheterization Additional Past Surgical History / Comment(s): 1996 CABG 5 vessel, colonoscopy. Past Anesthesia/Blood Transfusion Reactions: No Reported Reaction Smoking Status: Never smoker - Past Family History Mother Family Medical History: Coronary Artery Disease (CAD) Additional Family Medical History / Comment(s): CABG Father History Unknown: Yes Additional Family Medical History / Comment(s): Father never went to the doctor. General Exam - General Exam Comments Initial Comments: GENERAL: Patient is well-developed and well-nourished. Patient is nontoxic and well- hydrated and is in no acute distress. ENT: Neck is soft and supple. No significant lymphadenopathy is noted. Oropharynx is clear. Moist mucous membranes. Neck has full range of motion without eliciting any pain. EYES: The sclera were anicteric and conjunctiva were pink and moist. Extraocular movements were intact and pupils were equal round and reactive to light. Eyelids were unremarkable. PULMONARY: Unlabored respirations. Good breath sounds bilaterally. No audible rales rhonchi or wheezing was noted. CARDIOVASCULAR: There is a regular rate and rhythm without any murmurs gallops or rubs. ABDOMEN: Soft and nontender with normal bowel sounds. SKIN: Skin is clear with no lesions or rashes and otherwise unremarkable. NEUROLOGIC: Patient is alert and oriented x 2. Cranial nerves II through XII are grossly intact. Motor and sensory are also intact. Normal speech, volume and content. Symmetrical smile. MUSCULOSKELETAL: Normal extremities with adequate strength and full range of motion. No lower extremity swelling or edema. No calf tenderness. LYMPHATICS: No significant lymphadenopathy is noted PSYCHIATRIC: Normal psychiatric evaluation. Course Vital Signs 07/20/23 07/20/23 07/20/23 13:14 14:18 15:00 Temperature 97.8 F Pulse Rate 57 L 52 L 53 L Respiratory 18 20 22 Rate Blood Pressure 174/74 188/78 197/74 O2 Sat by Pulse 97 95 98 Oximetry 07/20/23 07/20/23 15:56 17:00 Temperature 97.8 F Pulse Rate 50 L 55 L Respiratory 22 22 Rate Blood Pressure 191/78 185/77 O2 Sat by Pulse 96 94 L Oximetry Medical Decision Making - Medical Decision Making EKG is interpreted by myself. EKG shows a sinus bradycardia 55 bpm PA interval 152 QRS is 111 QT interval is 461 QTc is 450. Poor quality but there is no obvious ST segment elevation. Was pt. sent in by a medical professional or institution (, PA, LIVESTOCK BUYER, urgent care, hospital, or custodial...) When possible be specific @ -senior care sent the patient in Did you speak to anyone other than the patient for history (EMS, parent, family, police, friend...)? What history was obtained from this source @ -No Did you review nursing and triage notes (agree or disagree)? Why? @ -I reviewed and agree with nursing and triage notes Were old charts reviewed (outside hosp., previous admission, EMS record, old EKG, old radiological studies, urgent care reports/EKG's, custodial records)? Report findings @ -No old charts were reviewed Differential Diagnosis (chest pain, altered mental status, abdominal pain women, abdominal pain men, vaginal bleeding, weakness, fever, dyspnea, syncope, headache, dizziness, GI bleed, back pain, seizure, CVA, palpatations, mental health, musculoskeletal)? @ -Differential Altered Mental Status: Hypoglycemia, DKA, hypercapnia, ETOH, overdose, CO poisoning, trauma, myxedema coma, HTN encephalopathy, infection, encephalitis, psychosis, intercranial hemorrhage, hepatic encephalopathy, meningitis, CVA, this is not meant to be an all-inclusive list EKG interpreted by me (3pts min.). @ -As above X-rays interpreted by me (1pt min.). @ -Chest x-ray shows no acute abnormality CT interpreted by me (1pt min.). @ -CT of the brain and C-spine showed no acute abnormality U/S interpreted by me (1pt. min.). @ -None done What testing was considered but not performed or refused? (CT, X-rays, U/S, labs)? Why? @ -None What meds were considered but not given or refused? Why? @ -None Did you discuss the management of the patient with other professionals (professionals i.e. , PA, LIVESTOCK BUYER, lab, RT, psych nurse, director social service, marble mason, teacher, fire prevention officer, family service caseworker)? Give summary @ -No Was smoking cessation discussed for >3mins.? @ -No Was critical care preformed (if so, how long)? @ -No Were there social determinants of health that impacted care today? How? (Homelessness, low income, unemployed, alcoholism, drug addiction, transportati on, low edu. Level, literacy, decrease access to med. care, custodial, rehab)? @ -No Was there de-escalation of care discussed even if they declined (Discuss DNR or withdrawal of care, Hospice)? DNR status @ -No What co-morbidities impacted this encounter? (DM, HTN, Smoking, COPD, CAD, Cancer, CVA, ARF, Chemo, Hep., AIDS, mental health diagnosis, sleep apnea, morbid obesity)? @ -None Was patient admitted / discharged? Hospital course, mention meds given and route, prescriptions, significant lab abnormalities, going to OR and other pertinent info. @ -Patient had no complaints throughout his ED course. Patient's labs showed no acute abnormality however patient did have urinary tract infection patient received 2 g of Rocephin and will be sent home on antibiotic Undiagnosed new problem with uncertain prognosis? @ -No Drug Therapy requiring intensive monitoring for toxicity (Heparin, Nitro, Insul in, Cardizem)? @ -No Were any procedures done? @ -No Diagnosis/symptom? @ -Urinary tract infection Acute, or Chronic, or Acute on Chronic? @ -Acute Uncomplicated (without systemic symptoms) or Complicated (systemic symptoms)? @ -Complicated Side effects of treatment? @ -No Exacerbation, Progression, or Severe Exacerbation? @ -No Poses a threat to life or bodily function? How? (Chest pain, USA, NC, pneumonia, PE, COPD, DKA, ARF, appy, cholecystitis, CVA, Diverticulitis, Homicidal, Suicidal, threat to staff... and all critical care pts) @ -No - Lab Data Result diagrams: 07/20/23 13:48 07/20/23 13:48 Lab Results 07/20/23 07/20/23 07/20/23 Range/Units 13:48 13:48 13:48 WBC 6.1 (3.8-10.6) k/uL RBC 3.32 L (4.30-5.90) m/uL Hgb 11.0 L (13.0-17.5) gm/dL Hct 32.4 L (39.0-53.0) % MCV 97.4 (80.0-100.0) fL MCH 33.0 (25.0-35.0) pg MCHC 33.8 (31.0-37.0) g/dL RDW 12.5 (11.5-15.5) % Plt Count 191 (150-450) k/uL MPV 8.9 Neutrophils % 72 % Lymphocytes % 18 % Monocytes % 5 % Eosinophils % 3 % Basophils % 1 % Neutrophils # 4.4 (1.3-7.7) k/uL Lymphocytes # 1.1 (1.0-4.8) k/uL Monocytes # 0.3 (0-1.0) k/uL Eosinophils # 0.2 (0-0.7) k/uL Basophils # 0.0 (0-0.2) k/uL PT 11.7 (10.0-12.5) sec INR 1.1 (<1.2) APTT 25.1 (22.0-30.0) sec Sodium (137-145) mmol/L Potassium (3.5-5.1) mmol/L Chloride (98-107) mmol/L Carbon Dioxide (22-30) mmol/L Anion Gap mmol/L BUN (9-20) mg/dL Creatinine (0.66-1.25) mg/dL Est GFR (CKD-EPI)AfAm (>60 ml/min/1.73 sqM) Est GFR (CKD-EPI)NonAf (>60 ml/min/1.73 sqM) Glucose (74-99) mg/dL POC Glucose (mg/dL) (70-110) mg/dL POC Glu [place] Director ID Calcium (8.4-10.2) mg/dL Magnesium (1.6-2.3) mg/dL Total Bilirubin (0.2-1.3) mg/dL AST (17-59) U/L ALT (4-49) U/L Alkaline Phosphatase (38-126) U/L Troponin I (0.000-0.034) ng/mL Total Protein (6.3-8.2) g/dL Albumin (3.5-5.0) g/dL Urine Color Yellow Urine Appearance Cloudy (Clear) Urine pH 6.0 (5.0-8.0) Ur Specific [place] 1.019 (1.001-1.035) Urine Protein Trace H (Negative) Urine Glucose (UA) Negative (Negative) Urine Ketones Negative (Negative) Urine Blood Trace H (Negative) Urine Nitrite Negative (Negative) Urine Bilirubin Negative (Negative) Urine Urobilinogen <2.0 (<2.0) mg/dL Ur Leukocyte Esterase Large H (Negative) Urine RBC 10 H (0-5) /hpf Urine WBC 126 H (0-5) /hpf Urine WBC Clumps Occasional H (None) /hpf Amorphous Sediment Few H (None) /hpf Urine Bacteria Rare H (None) /hpf Urine Mucus Rare H (None) /hpf Urine Opiates Screen Detected H (NotDetected) Ur Oxycodone Screen Not Detected (NotDetected) Urine Methadone Screen Not Detected (NotDetected) Ur Barbiturates Screen Not Detected (NotDetected) U Tricyclic Antidepress Detected H (NotDetected) Ur Phencyclidine Scrn Not Detected (NotDetected) Ur Amphetamines Screen Not Detected (NotDetected) U Methamphetamines Scrn Not Detected (NotDetected) U Benzodiazepines Scrn Not Detected (NotDetected) Urine Cocaine Screen Not Detected (NotDetected) U Marijuana (THC) Screen Not Detected (NotDetected) 07/20/23 07/20/23 07/20/23 Range/Units 13:48 13:48 14:15 WBC (3.8-10.6) k/uL RBC (4.30-5.90) m/uL Hgb (13.0-17.5) gm/dL Hct (39.0-53.0) % MCV (80.0-100.0) fL MCH (25.0-35.0) pg MCHC (31.0-37.0) g/dL RDW (11.5-15.5) % Plt Count (150-450) k/uL MPV Neutrophils % % Lymphocytes % % Monocytes % % Eosinophils % % Basophils % % Neutrophils # (1.3-7.7) k/uL Lymphocytes # (1.0-4.8) k/uL Monocytes # (0-1.0) k/uL Eosinophils # (0-0.7) k/uL Basophils # (0-0.2) k/uL PT (10.0-12.5) sec INR (<1.2) APTT (22.0-30.0) sec Sodium 136 L (137-145) mmol/L Potassium 4.2 (3.5-5.1) mmol/L Chloride 103 (98-107) mmol/L Carbon Dioxide 29 (22-30) mmol/L Anion Gap 4 mmol/L BUN 27 H (9-20) mg/dL Creatinine 1.29 H (0.66-1.25) mg/dL Est GFR (CKD-EPI)AfAm 59 (>60 ml/min/1.73 sqM) Est GFR (CKD-EPI)NonAf 51 (>60 ml/min/1.73 sqM) Glucose 116 H (74-99) mg/dL POC Glucose (mg/dL) 120 H (70-110) mg/dL POC Glu [place] Director ID Rachna Aguirre Calcium 8.5 (8.4-10.2) mg/dL Magnesium 1.9 (1.6-2.3) mg/dL Total Bilirubin 0.5 (0.2-1.3) mg/dL AST 22 (17-59) U/L ALT 16 (4-49) U/L Alkaline Phosphatase 94 (38-126) U/L Troponin I <0.012 (0.000-0.034) ng/mL Total Protein 6.0 L (6.3-8.2) g/dL Albumin 3.1 L (3.5-5.0) g/dL Urine Color Urine Appearance (Clear) Urine pH (5.0-8.0) Ur Specific [place] (1.001-1.035) Urine Protein (Negative) Urine Glucose (UA) (Negative) Urine Ketones (Negative) Urine Blood (Negative) Urine Nitrite (Negative) Urine Bilirubin (Negative) Urine Urobilinogen (<2.0) mg/dL Ur Leukocyte Esterase (Negative) Urine RBC (0-5) /hpf Urine WBC (0-5) /hpf Urine WBC Clumps (None) /hpf Amorphous Sediment (None) /hpf Urine Bacteria (None) /hpf Urine Mucus (None) /hpf Urine Opiates Screen (NotDetected) Ur Oxycodone Screen (NotDetected) Urine Methadone Screen (NotDetected) Ur Barbiturates Screen (NotDetected) U Tricyclic Antidepress (NotDetected) Ur Phencyclidine Scrn (NotDetected) Ur Amphetamines Screen (NotDetected) U Methamphetamines Scrn (NotDetected) U Benzodiazepines Scrn (NotDetected) Urine Cocaine Screen (NotDetected) U Marijuana (THC) Screen (NotDetected) Disposition Clinical Impression: Urinary tract infection Disposition: HOME SELF-CARE Condition: Good Instructions (If sedation given, give patient instructions): Urinary Tract Infection in Men (ED) Prescriptions: Sulfamethox-Tmp 800-160Mg [Bactrim DS 800-160 mg] 1 each PO Q12HR #14 tab Is patient prescribed a controlled substance at d/c from ED?: No Referrals: Prosper Rios DO [Primary Care Provider] - 1-2 days Time of Disposition: 15:24
[2023-07-20] MEDS: SODIUM CHLORIDE 0.9% 500 ML 500 ML IV ONE (14:08)
[2023-07-20 14:10] LABS: Basophils % (A) 1 %; Eosinophils # (A) 0.2 k/uL (0-0.7); Eosinophils % (A) 3 %; HCT 32.4 % (39.0-53.0); Lymphocytes # (A) 1.1 k/uL (1.0-4.8); Lymphocytes % (A) 18 %; MCHC 33.8 g/dL (31.0-37.0); MCV 97.4 fL (80.0-100.0); Mean Platelet Volume 8.9; Monocytes # (A) 0.3 k/uL (0-1.0); Monocytes % (A) 5 %; Neutrophils # (A) 4.4 k/uL (1.3-7.7); Neutrophils % (A) 72 %; Platelet Count 191 k/uL (150-450); RBC 3.32 m/uL (4.30-5.90); RDW 12.5 % (11.5-15.5); WBC 6.1 k/uL (3.8-10.6)
[2023-07-20 14:17] LABS: Glucose,Whole Blood 120 mg/dL (70-110)
[2023-07-20 14:20] LABS: INR 1.1 (<1.2); Partial Thromboplastin Time 25.1 sec (22.0-30.0); Prothrombin Time 11.7 sec (10.0-12.5)
[2023-07-20 14:29] LABS: ALT 16 U/L (4-49); AST 22 U/L (17-59); African American GFR (CKD) 59 (>60 ml/min/1.73 sqM); Albumin 3.1 g/dL (3.5-5.0); Alkaline Phosphatase 94 U/L (38-126); Anion Gap 4 mmol/L; Blood Urea Nitrogen 27 mg/dL (9-20); Calcium 8.5 mg/dL (8.4-10.2); Carbon Dioxide 29 mmol/L (22-30); Chloride 103 mmol/L (98-107); Glucose 116 mg/dL (74-99); Magnesium 1.9 mg/dL (1.6-2.3); Non-African American GFR(CKD) 51 (>60 ml/min/1.73 sqM); Potassium 4.2 mmol/L (3.5-5.1); Sodium 136 mmol/L (137-145); Total Bilirubin 0.5 mg/dL (0.2-1.3)
[2023-07-20 14:35] LABS: Amorphous Sediment,Urine Few /hpf; Appearance,Urine Cloudy (Clear); Bacteria,Urine Rare /hpf; Bilirubin,Urine Negative (Negative); Blood,Urine Trace (Negative); Color,Urine Yellow; Glucose,Urine (UA) Negative (Negative); Ketones,Urine Negative (Negative); Leukocyte Esterase,Urine Large (Negative); Mucus,Urine Rare /hpf; Nitrite,Urine Negative (Negative); Protein,Urine Trace (Negative); RBC,Urine 10 /hpf (0-5); Specific Gravity,Urine 1.019 (1.001-1.035); Urobilinogen,Urine <2.0 mg/dL (<2.0); WBC,Urine 126 /hpf (0-5)
[2023-07-20 14:36] LABS: Amphetamine Screen,Urine Not Detected (NotDetected); Barbiturate Screen,Urine Not Detected (NotDetected); Benzodiazepines Screen,Urine Not Detected (NotDetected); Cocaine Screen,Urine Not Detected (NotDetected); Methadone Screen, Urine Not Detected (NotDetected); Opiate Screen,Urine Detected (NotDetected); Oxycodone Screen, Urine Not Detected (NotDetected); Phencyclidine Screen,Urine Not Detected (NotDetected); Tricyclic Antidepressant,Urine Detected (NotDetected); Urn Cannabinoid Scrn Not Detected (NotDetected)
--- NOTE | 2023-07-20 14:40 | XR ---
EXAMINATION TYPE: XR chest 2V DATE OF EXAM: 07/20/2023 COMPARISON: 06/20/2022 HISTORY: 82-year-old male confusion, weakness, slurred speech, altered mental status TECHNIQUE: AP and lateral views FINDINGS: Median sternotomy wires are present post-CABG clips. Heart upper limits of normal in size. Rounded re trocardiac opacity in keeping with patient's known moderate-sized hiatal hernia. IMPRESSION: Post-CABG and other chronic changes. Known moderate sized hiatal hernia. No acute process seen.
[2023-07-20] MEDS: cefTRIAXone IN SWFI 1,000 MG/10 ML SYRINGE IVP STA ×2 (15:43→15:53)
--- NOTE | 2023-07-20 17:08 | CT ---
EXAMINATION TYPE: CT brain cspine wo con DATE OF EXAM: 07/20/2023 HISTORY: Memory loss, weakness. Slurred speech. TECHNIQUE: CT scan of the head and cervical spine are performed without contrast. CT DLP: 1650.5 mGycm. Automated Exposure Control for Dose Reduction was Utilized. COMPARISON: 06/20/2022 FINDINGS: There is no acute intracranial hemorrhage, mass effect, or midline shift. Prominent bilater al mariscal radiata and centrum semiovale low-attenuation is redemonstrated, but there is no definite n ew attenuation defect. The globes are intact and the visualized sinuses, middle ear cavities, and mas toid sinus air cells are clear. Bilateral external auditory canal prominent cerumen is incidentally n oted. Cervical spine is visualized in its entirety from C1 through upper thoracic levels and demonstrates s atisfactory alignment without evidence of acute fracture or dislocation. Prevertebral soft tissue akbar ears within normal limits. Prominent multilevel cervical spondylosis changes noted. The C1-C2 articul ation is unremarkable. IMPRESSION: No definite acute process.
[2023-07-20 19:00] VITALS: BP 182/76; PULSE 58; RESP 18; TEMP 99.8
== END 2023-07-20 18:49 | disposition home or self-care (01) ==
LOC: EC 13:01
DX: N39.0 Urinary tract infection, site not specified (principal); K44.9 Diaphragmatic hernia without obstruction or gangrene; I10 Essential (primary) hypertension; I25.10 Atherosclerotic heart disease of native coronary artery without angina pectoris; I25.2 Old myocardial infarction; E78.5 Hyperlipidemia, unspecified; K21.9 Gastro-esophageal reflux disease without esophagitis; M19.90 Unspecified osteoarthritis, unspecified site; Z79.82 Long term (current) use of aspirin; Z79.899 Other long term (current) drug therapy; Z95.1 Presence of aortocoronary bypass graft; Z86.73 Personal history of transient ischemic attack (TIA), and cerebral infarction without residual deficits
CPT/HCPCS: 36415; 93005; 80053; 83735; 84484; 85025; 85610; 85730; 81001; 80306; 87086; 71046; 72125; 70450; 99285; 96374; 96361; J0696